=== PATIENT | female | born 1990 | race Caucasian/White ===

== ENCOUNTER 2017-12-28 14:48 | Emergency (ER) | payer OTHER ==
[2017-12-28 15:08] VITALS: BP 125/78
[2017-12-28] MEDS ORDERED: CLINDAMYCIN 150 MG CAPSULE PO STA (17:51)
[2017-12-28] MEDS ORDERED: IBUPROFEN 600 MG TABLET PO STA (17:51)
[2017-12-28] MEDS ORDERED: diphenhydrAMINE 25 MG CAPSULE PO STA (17:51)
--- NOTE | 2017-12-28 18:12 | ED Physician Documentation ---
PD HPI SKIN - Stated complaint Stated Complaint: LT LEG SWELLING - Chief complaint Chief Complaint: Wound - History obtained from History obtained from: Patient, Family - History of Present Illness Timing - onset: Yesterday Timing - details: Abrupt onset Location: LLE Quality / character: Painful, Discolored, Raised Associated symptoms: No: Fever Similar symptoms before: Work up / diagnostics Recently seen: Not recently seen - Additional information Additional information: Patient is a 27 year old female who is presenting to the emergency department for pain, redness and swelling on the medial portion of her left thigh. Patient states that she just noticed it last night. Patient denies any trauma but does have a history of mrsa. 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 - Present Medications Home Medications: Ambulatory Orders Medication Instructions Recorded Confirmed Clindamycin HCl [Clindamycin 300MG 300 mg PO Q6H 7 Days capsule 12/28/17 CAP] - Allergies Allergies/Adverse Reactions: Allergies Allergy/AdvReac Type Severity Reaction Status Date / Time No Known Drug Allergies Allergy Verified 12/28/17 15:08 - Social History Does the pt smoke?: No Smoking Status: Never smoker Does the pt drink ETOH?: No Does the pt have substance abuse?: No - Immunizations Immunizations are current?: Yes - POLST Patient has POLST: No PD ED PE NORMAL - Vitals Vital signs reviewed: Yes - General General: Alert and oriented X 3 - HEENT HEENT: Atraumatic - Neck Neck: Supple, no meningeal sign - Cardiac Cardiac: RRR - Respiratory Respiratory: No respiratory distress - Neuro Neuro: Alert and oriented X 3 PD ED PE EXPANDED - Extremities DELON LE visual: 1 - rash (tender and indurated no fluctuance) Results - Vitals Vitals: Vital Signs - 24 hr 12/28/17 14:59 Temperature 36.9 C Heart Rate 99 Respiratory 18 Rate Blood Pressure 125/78 O2 Saturation 97 Oxygen O2 Source Room air PD MEDICAL DECISION MAKING - ED course Complexity details: reviewed old records, reviewed results, re-evaluated patient , considered differential, d/w patient, d/w family ED course: Patient was seen and examined at bedside. patient's wound was evaluated. there was a central area that looked like it could have been a bite, but with patient's mrsa history the wound was outlined and patient was started on antibiotics. Patient and family were given detailed discharge and follow up instructions and were stable for outpatient follow up. - Sepsis Event Vital Signs: Vital Signs - 24 hr 12/28/17 14:59 Temperature 36.9 C Heart Rate 99 Respiratory 18 Rate Blood Pressure 125/78 O2 Saturation 97 Oxygen O2 Source Room air Departure - Departure Disposition: 01 Home, Self Care Clinical Impression: Cellulitis Condition: Good Instructions: Cellulitis Dc Follow-Up: primary,care provider [Other] - Within 3 Days Prescriptions: Clindamycin HCl [Clindamycin 300MG CAP] 300 mg PO Q6H 7 Days capsule Comments: You have been prescribed clindamycin. you will need to take it 4 times a day for a week. you should take it with yogurt or probiotics. you can take motrin or tylenol for pain. You can also take benadryl and use ice for the swelling. you should follow up with your doctor if your symptoms don't improve in the next 48 hours. you may return to the emergency department at any time for new, worsening or uncontrollable symptoms. Discharge Date/Time: 12/28/17 18:16
== END 2017-12-28 18:16 | disposition home or self-care (01) ==
LOC: ED 14:48
DX: L03.119 Cellulitis of unspecified part of limb (principal); Z86.14 Personal history of Methicillin resistant Staphylococcus aureus infection
CPT/HCPCS: 99283; A9270

== ENCOUNTER 2018-05-13 06:59 | Emergency (ER) | payer OTHER ==
[2018-05-13 07:17] VITALS: BP 125/87
[2018-05-13] MEDS ORDERED: ACETAMINOPHEN 325 MG TABLET PO STA (07:19)
[2018-05-13] MEDS ORDERED: ONDANSETRON ODT 4 MG TABLET TL STA (07:19)
[2018-05-13] MEDS ORDERED: IBUPROFEN 400 MG TABLET PO STA (07:19)
--- NOTE | 2018-05-13 07:22 | ED Physician Documentation ---
History of Present Illness - Stated complaint Stated Complaint: CHIN LAC - Chief complaint Chief Complaint: Laceration - Additonal information Additional information: hx from pt 28 yolanda slipped and hit chin suffering a lac brief LOC after some nausea minor MORRISON and neck pain bite feels normal no numbness or weakness no CP BP AP denies preg no blood thinners tdap UTD Review of Systems Constitutional: denies: Fever Throat: denies: Dental pain / toothache Cardiac: denies: Chest pain / pressure Respiratory: denies: Dyspnea GI: reports: Nausea. denies: Abdominal Pain, Vomiting : denies: Now EGA Musculoskeletal: reports: Neck pain (mild). denies: Back pain Neurologic: reports: Headache, Head injury. 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 Psych: Depression - Past Surgical History Past Surgical History: Yes /CLINICAL TRIAL LEADER: section - Allergies Allergies/Adverse Reactions: Allergies Allergy/AdvReac Type Severity Reaction Status Date / Time No Known Drug Allergies Allergy Verified 05/13/18 07:17 - Social History Does the pt smoke?: No Smoking Status: Never smoker Does the pt drink ETOH?: No Does the pt have substance abuse?: No - Immunizations Immunizations are current?: Yes - POLST Patient has POLST: No PD ED PE NORMAL - Vitals Vital signs reviewed: Yes - General General: Alert and oriented X 3 - HEENT HEENT: PERRL, Ears normal (no hemotympanum, no post auricular ecchymosis) - Neck Neck: No bony TTP - Cardiac Cardiac: RRR - Respiratory Respiratory: No respiratory distress - Abdomen Abdomen: Soft, Non tender - Neuro Neuro: Alert and oriented X 3, flaker tender 2-12 intact, No motor deficit, No sensory deficit, Normal speech Eye Opening: Spontaneous Motor: Obeys Commands Verbal: Oriented GCS Score: 15 Results - Vitals Vitals: Vital Signs - 24 hr 05/13/18 07:13 Temperature 36.8 C Heart Rate 88 Respiratory 18 Rate Blood Pressure 125/87 H O2 Saturation 99 Oxygen O2 Source Room air Procedures - Laceration (location) chin Length in cm: 1.5 Wound type: Linear Neurovascular status: Sensory intact, Motor intact Anesthesia: LET Wound Preparation: Irrigated copiously NS ([place]) Skin layer closure: Dermabond Other: Patient tolerated well, No complications, Neurovascular intact, Tetanus UTD Complexity: Simple PD MEDICAL DECISION MAKING - ED course ED course: spine cleared clinically - A&O, no focal TTP, nl neuro exam did have brief LOC but now ith GCS 15 and nl neuro exam so doubt ICH and defer CT for now - d/w pt Departure - Departure Disposition: 01 Home, Self Care Clinical Impression: Head injury Qualifiers: Encounter type: initial encounter Qualified Code(s): S09.90XA - Unspecified injury of head, initial encounter Chin laceration Qualifiers: Encounter type: initial encounter Qualified Code(s): S01.81XA - Laceration without foreign body of other part of head, initial encounter Condition: Good Instructions: ED Concussion, ED Laceration Facial Skin Glue, ED Scar Tips to Minimize Comments: Since you passed out briefly I suspect you have suffered a concussion But at this time your neurologic exam is normal So I don't think you need to have a CT scan right now. But if you get worse, please come back to the ER for a recheck and we may need to reconsider the CT Otherwise, motrin and tylenol for the pain Ice wrapped in a towel or sock for 20 minutes at a time. Rest and take it easy today Forms: Activity restrictions
== END 2018-05-13 09:05 | disposition home or self-care (01) ==
LOC: ED 06:59
DX: S06.9X1A Unspecified intracranial injury with loss of consciousness of 30 minutes or less, initial encounter (principal); S01.81XA Laceration without foreign body of other part of head, initial encounter; W01.198A Fall on same level from slipping, tripping and stumbling with subsequent striking against other object, initial encounter
CPT/HCPCS: 12011; 99283; A9270; Q0162

== ENCOUNTER 2019-03-06 08:00 | Outpatient (CLI) | payer BC, OTHER | END 2019-03-06 23:59 | disposition home or self-care (01) | LOC: LAB.R 08:00 | PROVIDERS: ATTEND Registered Nurse | DX: R30.0 Dysuria (principal) | CPT/HCPCS: 87086 ==

== ENCOUNTER 2021-09-01 07:26 | Outpatient (CLI) | payer OTHER | END 2021-09-01 07:27 | disposition EMS.NT | LOC: EMS 07:26 | DX: M24.461 Recurrent dislocation, right knee (principal) ==

== ENCOUNTER 2021-09-01 08:08 | Emergency (ER) | payer BC, OTHER ==
[2021-09-01 08:17] VITALS: BP 112/74
--- NOTE | 2021-09-01 09:26 | ED Physician Documentation ---
PD HPI LOWER EXT INJURY - Stated complaint Stated Complaint: R KNEE INJ - Chief complaint Chief Complaint: Trauma Ext - History obtained from History obtained from: Patient - History of Present Illness PD HPI LOW EXT INJURY LOCATION: Right, Knee Type of injury: Twist Where injury occurred: Home Timing - onset: Today Timing - duration: Hours Timing - details: Abrupt onset, Now resolved Improved by: Rest Worsened by: Moving, Palpating Associated symptoms: No: Weakness, Numbness, Tingling Contributing factors: No: Anticoagulated Similar symptoms before: Diagnosis (patellar dislocation) Recently seen: Not recently seen - Additional information Additional information: Previous well 31-year-old female with a prior history of patellar dislocation was asleep tonight in her bed when she went to [facility] and had spontaneous dislocation of the right patella. She had the patella dislocated laterally with her leg bent and she laid in her bed called 911 and the dislocation spontaneously resolved prior to arrival of medics. The patient has persistent pain associated with this. She has had this happen to her a number of times previously most recently about 9 years ago. She indicates that she did go undergo some physical therapy with this which helped and she indicates that she has had a problem with pain or an ache in this knee the entire time. She feels that it will easily dislocate if she is not careful. Review of Systems Constitutional: denies: Fever Throat: denies: Oral lesions / sores, Sore throat Respiratory: denies: Cough GI: denies: Vomiting Musculoskeletal: reports: Joint pain, Pain with weight bearing. 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 : None HEENT: None Psych: Depression Musculoskeletal: None Derm: None - Past Surgical History Past Surgical History: Yes /REFLESHER: section - Present Medications Home Medications: Ambulatory Orders Medication Instructions Recorded Confirmed Fluoxetine HCl [Prozac] 20 mg PO DAILY 09/01/21 09/01/21 Galcanezumab-Gnlm [Emgality 120 mg SQ ONCE 09/01/21 09/01/21 Syringe] Leuprolide Acetate [Lupron Depot] 11.25 mg IM ONCE 09/01/21 09/01/21 Topiramate [Topamax] 25 mg PO QD 09/01/21 09/01/21 Ubrogepant [Ubrelvy] 100 mg PO ONCE PRN 09/01/21 09/01/21 - Allergies Allergies/Adverse Reactions: Allergies Allergy/AdvReac Type Severity Reaction Status Date / Time No Known Drug Allergies Allergy Verified 09/01/21 08:13 - Social History Does the pt smoke?: No Smoking Status: Never smoker Does the pt drink ETOH?: No Does the pt have substance abuse?: No - Immunizations Immunizations are current?: Yes - POLST Patient has POLST: No PD ED PE NORMAL - Vitals Vital signs reviewed: Yes (tachy) - General General: Alert and oriented X 3, No acute distress, Well developed/nourished - HEENT HEENT: Atraumatic, PERRL, EOMI - Respiratory Respiratory: No respiratory distress - Derm Derm: Normal color, Warm and dry, No rash - Extremities Extremities: No deformity, No edema, Other (mild tenderness to the patella itself. Ligaments stable to testing distal n/v intact normal ROM no swelling. ) - Neuro Neuro: Alert and oriented X 3, yacht builder 2-12 intact, No motor deficit, No sensory deficit, Normal speech Eye Opening: Spontaneous Motor: Obeys Commands Verbal: Oriented GCS Score: 15 - Psych Psych: Normal mood, Normal affect Results - Vitals Vitals: Vital Signs - 24 hr 09/01/21 08:14 Temperature 36.7 C Heart Rate 101 H Respiratory 16 Rate Blood Pressure 112/74 O2 Saturation 94 Oxygen O2 Source Room air PD MEDICAL DECISION MAKING - ED course Complexity details: reviewed results, re-evaluated patient, considered differential, d/w patient ED course: 31-year-old female with a spontaneous patellar dislocation has had a spontaneously reduce she has normal range of motion we will place her into a knee immobilizer and I will have her follow-up with orthopedics. She has had some type of a problem with this despite using physical therapy for the past 9 years. She may need an increase in physical therapy or a procedure. I have referred her to orthopedics for evaluation. Departure - Departure Disposition: 01 Home, Self Care Clinical Impression: Closed dislocation of right patella Qualifiers: Encounter type: initial encounter Qualified Code(s): S83.004A - Unspecified dislocation of right patella, initial encounter Condition: Stable Instructions: ED Dislocation Patella Follow-Up: Katus,Tari, READING SPECIALIST [Primary Care Provider] - Huber Gonzalez MD [Provider Admit Priv/Credential] - Comments: Lis, today it looks like your kneecap has reset itself and as discussed the important part with treatment of this overall is to improve the strength of your quadriceps muscles to keep this ligament tightened. Today we have provided you with a knee immobilizer which is for your comfort. If you do not find that this helps you do not need to wear it. I have given you a referral to orthopedics with the thought that you may need more physical therapy or a procedure.
--- NOTE | 2021-09-01 09:34 | XRAY Report ---
PROCEDURE: Knee 4 View RT INDICATIONS: Trauma TECHNIQUE: 4 views of the right knee(s) were acquired. COMPARISON: None. FINDINGS: Bones: No fractures or dislocations. No suspicious bony lesions. Soft tissues: No joint effusion. No suspicious soft tissue calcifications. IMPRESSION: No visualized acute fracture or dislocation. However, occult injury cannot be excluded. Recommend short interval imaging follow-up in 7-10 days as clinically indicated for additional evalua tion. Reviewed by: Cathy Neff MD on 09/01/2021 9:32 AM PDT Approved by: Cathy Neff MD on 09/01/2021 9:32 AM PDT Station ID: [id number]
== END 2021-09-01 10:00 | disposition home or self-care (01) ==
LOC: ED 08:08
DX: S83.004A Unspecified dislocation of right patella, initial encounter (principal); X58.XXXA Exposure to other specified factors, initial encounter; Y93.89 Activity, other specified; Y92.003 Bedroom of unspecified non-institutional (private) residence as the place of occurrence of the external cause
CPT/HCPCS: 99282; 99283

== ENCOUNTER 2022-06-29 08:24 | Inpatient (IN) | payer OTHER ==
--- NOTE | 2022-06-29 08:43 | ED Physician Documentation ---
PD HPI URI - Stated complaint Stated Complaint: VOMITING/FEVER - Chief complaint Chief Complaint: Fever - History obtained from History obtained from: Patient, Family (spouse says the pateint was feeling well post knee surgery 5 days ago. Light activity and was standing. He states he is feeling well without fever/URI/diarhea. Patient abruptly sick several hours ago.) - History of Present Illness Timing - onset: How many hours ago (4) Timing details: Abrupt onset, Still present Associated symptoms: Fever, Sweats, NVD (had 2-3 loose stools without noted blood/melena. Lane feverish but did not take temp at home.). No: Nasal congestion, Rhinorrhea, Sore throat, Dry cough, Chest pain, Dyspnea Contributing factors: Other (knee surgery [address] Oreilly in [facility]. Was doing okay post op and knee without redness, swelling, purulence.). No: Sick contact, Immunocompromised, Unimmunized Similar symptoms before: Has not had sx before Recently seen: Surgery (ortho surgery knee 5 days ago.) Review of Systems Constitutional: reports: Fever, Chills, Myalgias Nose: denies: Rhinorrhea / runny nose, Congestion Throat: denies: Sore throat Respiratory: denies: Cough GI: reports: Nausea, Vomiting, Diarrhea. denies: Abdominal Pain : denies: Dysuria Skin: denies: Rash, Lesions Neurologic: reports: Generalized weakness (just overnight.). 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 - Present Medications Home Medications: Ambulatory Orders Medication Instructions Recorded Confirmed Fluoxetine HCl [Prozac] 20 mg PO DAILY 09/01/21 06/29/22 Galcanezumab-Gnlm [Emgality 120 mg SQ .Q28D 09/01/21 06/29/22 Syringe] Leuprolide Acetate [Lupron Depot] 11.25 mg IM .[id number] 09/01/21 06/29/22 Ubrogepant [Ubrelvy] 100 mg PO ONCE PRN 09/01/21 06/29/22 Cyclobenzaprine [Flexeril] 5 mg PO TID PRN 06/29/22 06/29/22 Norethindrone Acetate 5 mg PO DAILY 06/29/22 06/29/22 estradioL [Estrace] 1 mg PO DAILY 06/29/22 06/29/22 hydrOXYzine pamoate [Hydroxyzine 25 mg PO Q6H PRN 06/29/22 06/29/22 Pamoate] oxyCODONE [Roxicodone] 5 mg PO Q4HR PRN 06/29/22 06/29/22 - Allergies Allergies/Adverse Reactions: Allergies Allergy/AdvReac Type Severity Reaction Status Date / Time No Known Drug Allergies Allergy Verified 06/29/22 08:31 - Social History Does the pt smoke?: No Smoking Status: Never smoker Does the pt drink ETOH?: No Does the pt have substance abuse?: No - Immunizations Immunizations are current?: Yes - POLST Patient has POLST: No PD ED PE NORMAL - Vitals Vital signs reviewed: Yes (high fever 104. tachycardia.) - General General: Alert and oriented X 3, Well developed/nourished - HEENT HEENT: Ears normal, Pharynx benign, Other (moderately pale appearance. ). No: Moist mucous membranes - Cardiac Cardiac: No: RRR (tachycardic, but regular, with some variation of heart rate so appearing sinus tachy and not SVT. ) - Respiratory Respiratory: No respiratory distress, Clear bilaterally - Abdomen Abdomen: Soft, Non tender, Non distended. No: Normal bowel sounds (decreased) - Female Female : Deferred - Rectal Rectal: Deferred - Back Back: No CVA TTP - Derm Derm: Warm and dry. No: Normal color (pale) - Extremities Extremities: Other (right knee with tape and glue on scope incisions. No drainage noted. There is some bruising around each incision. No redness nor overt swelling. No notable effusion. Mild warmth of joint but not hot. No inguinal adenopathy. ) - Neuro Neuro: Alert and oriented X 3, No motor deficit, Normal speech Results - Vitals Vitals: Vital Signs - 24 hr 06/29/22 06/29/22 06/29/22 08:31 09:06 09:30 Temperature 39.5 C H Heart Rate 144 H 136 H 128 H Respiratory 22 21 16 Rate Blood Pressure 137/87 H 128/83 H 105/68 O2 Saturation 98 98 94 06/29/22 06/29/22 06/29/22 10:00 10:30 11:00 Temperature 37.4 C Heart Rate 129 H 124 H 133 H Respiratory 15 15 21 Rate Blood Pressure 124/49 L 101/64 109/78 O2 Saturation 96 94 93 06/29/22 13:30 Temperature Heart Rate 137 H Respiratory 26 H Rate Blood Pressure 126/85 H O2 Saturation 97 Oxygen O2 Source Room air - Labs Labs: Laboratory Tests 06/29/22 06/29/22 06/29/22 08:52 08:52 08:52 WBC 6.3 RBC 4.87 Hgb 14.2 Hct 43.1 MCV 88.5 MCH 29.2 MCHC 32.9 RDW 12.9 Plt Count 321 MPV 9.2 Neut # (Auto) 5.9 Lymph # (Auto) 0.3 L Davie # (Auto) 0.1 Eos # (Auto) 0.0 Baso # (Auto) 0.0 Absolute Nucleated RBC 0.00 Nucleated RBC % 0.0 Sodium 136 Potassium 3.2 L Chloride 102 Carbon Dioxide 21 Anion Gap 13.0 BUN 9 Creatinine 0.8 Estimated GFR (MDRD) 84 L Glucose 128 H Lactic Acid Calcium 8.7 Total Bilirubin 1.9 H AST 35 ALT 29 Alkaline Phosphatase 58 C-Reactive Protein 3.0 H Total Protein 7.3 Albumin 3.8 Globulin 3.5 Albumin/Globulin Ratio 1.1 Lipase 28 Procalcitonin 10.15 H* Nasal Adenovirus (PCR) Nasal B. parapertussis DNA (PCR) Nasal Coronavir 229E PCR Nasal Coronavir HKU1 PCR Nasal Coronavir NL63 PCR Nasal Coronavir OC43 PCR Nasal Enterovir/Rhinovir PCR Nasal Influenza B PCR Nasal Influenza A PCR Nasal Parainfluen 1 PCR Nasal Parainfluen 2 PCR Nasal Parainfluen 3 PCR Nasal Parainfluen 4 PCR Nasal RSV (PCR) Nasal B.pertussis DNA PCR Nasal C.pneumoniae (PCR) Ronnie Human Metapneumo PCR Nasal M.pneumoniae (PCR) Nasal SARS-CoV-2 (PCR) 06/29/22 06/29/22 08:52 09:05 WBC RBC Hgb Hct MCV MCH MCHC RDW Plt Count MPV Neut # (Auto) Lymph # (Auto) Davie # (Auto) Eos # (Auto) Baso # (Auto) Absolute Nucleated RBC Nucleated RBC % Sodium Potassium Chloride Carbon Dioxide Anion Gap BUN Creatinine Estimated GFR (MDRD) Glucose Lactic Acid 4.0 H* Calcium Total Bilirubin AST ALT Alkaline Phosphatase C-Reactive Protein Total Protein Albumin Globulin Albumin/Globulin Ratio Lipase Procalcitonin Nasal Adenovirus (PCR) NOT DETECTED Nasal B. parapertussis DNA (PCR) NOT DETECTED Nasal Coronavir 229E PCR NOT DETECTED Nasal Coronavir HKU1 PCR NOT DETECTED Nasal Coronavir NL63 PCR NOT DETECTED Nasal Coronavir OC43 PCR NOT DETECTED Nasal Enterovir/Rhinovir PCR NOT DETECTED Nasal Influenza B PCR NOT DETECTED Nasal Influenza A PCR NOT DETECTED Nasal Parainfluen 1 PCR NOT DETECTED Nasal Parainfluen 2 PCR NOT DETECTED Nasal Parainfluen 3 PCR NOT DETECTED Nasal Parainfluen 4 PCR NOT DETECTED Nasal RSV (PCR) NOT DETECTED Nasal B.pertussis DNA PCR NOT DETECTED Nasal C.pneumoniae (PCR) NOT DETECTED Ronnie Human Metapneumo PCR NOT DETECTED Nasal M.pneumoniae (PCR) NOT DETECTED Nasal SARS-CoV-2 (PCR) NOT DETECTED PD Medical Decision Making - ED course Complexity details: reviewed results (I ordered and reviewed appropriate testing to evaluate cause of illness and effect of it (sepsis markers, etc).), considered differential, d/w patient, d/w reporting consultant (I talked with Dr. Oreilly, Ortho at [facility] who had done the recent surgery on knee. He felt if the knee was not red/hot/draining, then would not be the source of fever/infection and did not feel patient needed transfer. Clinically I would agree that the knee is lower suspicion as the source. ), other (dicussed case directly with hospitalist, Dr. Levin) Reviewed Lab Results: Patient with elevated Lactic acid level of 4 and procalictonin of 10, both of which are more suggestive of bacterial cause of her infection. Normal white count does not exclude that. She has high fever and is tachycardic, and elevated lactic acid, are supportive of Dx of sepsis. Drug Therapy Requiring Monitoring for Toxicity: given IV fluid boluses to improve general perfusion and help with tachycardia and lactate. Given IV antibiotics. ED course: The patient has sepsis findings and appears ill. Her knee is mildly warm but not hot/red/nor swollen, and without drainage. Clinically less likely for this to be source of infection, though still needs to be on list of concern given the timing of illness 5 days post surgery. As such, I will cover with Paige and Deysi for potential wound infection. The PCR test is negative for listed viruses, so cannot assign her symptoms clearly as viral. Her symptoms do sound flu-like clinically. Given IV fluids and she appears with better color. However her heart rate remains tachycardic, with ECG showing sinus tach (as opposed to SVT or afib). Given more IV fluids. I feel the patient is ill/septic and needs hospitalization until further treatment improves her and can evaluate source of illness (blood culture results, progression of symptoms, etc). Departure - Departure Disposition: ED Place in Observation Clinical Impression: Nausea, vomiting and diarrhea, Hyperpyrexia, Status post arthroscopic knee surgery, Elevated lactic acid level, Sepsis Condition: Stable Discharge Date/Time: 06/29/22 14:20
[2022-06-29] MEDS ORDERED: ONDANSETRON 4 MG/2 ML VIAL IVP STA ×2 (08:52→13:36)
[2022-06-29] MEDS ORDERED: KETOROLAC 15 MG/ML VIAL IVP STA (08:52)
[2022-06-29] MEDS ORDERED: ACETAMINOPHEN 1,000 MG/100 ML 1,000 MG/100 ML BAG IV ONE (08:53)
[2022-06-29] MEDS ORDERED: SODIUM CHLORIDE 0.9% 1,000 ML IV STA ×2 (08:54→10:10)
[2022-06-29 09:02] LABS: BASOPHILS % (AUTO) 0.2 %; EOSINOPHILS % (AUTO) 0.3 %; HCT - HEMATOCRIT 43.1 % (37.0-47.0); HGB - HEMOGLOBIN 14.2 g/dL (12.0-16.0); LYMPHOCYTES # (AUTO) 0.3 10^3/uL (1.5-3.5); LYMPHOCYTES % (AUTO) 4.4 %; MEAN CORPUSCULAR HEMOGLOBIN 29.2 pg (27.0-31.0); MEAN CORPUSCULAR HGB CONC 32.9 g/dL (32.0-36.0); MEAN CORPUSCULAR VOLUME 88.5 fL (81.0-99.0); MEAN PLATELET VOLUME 9.2 fL (7.9-10.8); MONOCYTES # (AUTO) 0.1 10^3/uL (0.0-1.0); MONOCYTES % (AUTO) 0.8 %; NEUTROPHILS # (AUTO) 5.9 10^3/uL (1.5-6.6); NEUTROPHILS % (AUTO) 93.5 %; PLT - PLATELET COUNT 321 10^3/uL (130-450); RED BLOOD COUNT 4.87 10^6/uL (4.20-5.40); RED CELL DISTRIBUTION WIDTH 12.9 % (12.0-15.0); WHITE BLOOD COUNT 6.3 x10^3/uL (4.8-10.8)
--- OUTSIDE RECORDS SUMMARY | 2022-06-29 09:18 | EXTERNAL MEDICAL SUMMARY RPT | Continuity of Care Document ---
:1990 Author Organization [facility] [address] [place] [address] Phone Care Team Providers Name Role Phone Unavailable Unavailable Unavailable Мария Nova Unavailable Unavailable Allergies and Intolerances date description facility type (no date) No Known Drug Allergies [facility] (unkn own) Encounters No information. Functional Status No information. Immunizations No information. Medications date description facility 2022-05-05 00:00 Cetirizine [facility] 2022-06-23 00:00 Oxycodone [facility] 2022-06-23 00:00 Ibuprofen [facility] 2022-05-05 00:00 Galcanezumab-Gnlm [facility] 2022-06-23 00:00 Aspirin [facility] 2022-06-23 00:00 Acetaminophen [facility] 2022-06-23 00:00 Hydroxyzine Pamoate [facility] Problems date description facility 2022-04-16 11:18 Loose body in knee, [facility] 2022-05-05 09:53 Recurrent dislocation of patella, [facility] 2022-05-05 09:53 Effusion, [facility] 2022-05-05 10:30 Recurrent dislocation of patella, [facility] 2022-05-05 10:30 Effusion, [facility] 2022-05-07 13:02 Recurrent dislocation of patella, [facility] 2022-05-07 13:02 Effusion, [facility] 2022-05-11 12:57 Recurrent dislocation of patella, [facility] 2022-05-11 12:57 Effusion, [facility] 2022-06-22 13:00 Encounter for screening for other viral [facility] diseases 2022-06-23 07:48 Recurrent dislocation of patella, [facility] 2022-06-23 07:48 Effusion, [facility] 2022-06-23 10:33 Recurrent dislocation of patella, [facility] 2022-06-23 10:33 Effusion, [facility] 2022-06-23 12:02 Recurrent dislocation of patella, right knee [facility] 2022-06-23 12:02 Effusion, right knee [facility] 2022-06-23 12:45 Recurrent dislocation of patella, right knee [facility] 2022-06-23 12:45 Effusion, right [facility] Procedures date description facility 2022-05-05 00:00 Patellar Tendon Repair (Right) [facility] 2022-06-23 00:00 XR fluoro, less than 60 minutes [facility] 2022-06-23 00:00 ORIF Patella Fracture (Right) [facility] ospital Results/Labs test date author facility value unit interpret ation Result panel 1 (unknown) (no date) (unknown) [facility] (no value) ([facility] unknown) Result panel 2 (unknown) (no date) (unknown) [facility] (no value) ([facility] unknown) Result panel 3 (unknown) (no date) (unknown) [facility] (no value) ([facility] unknown) Result panel 4 (unknown) (no date) (unknown) [facility] (no value) ([facility] unknown) Result panel 5 (unknown) (no date) (unknown) (unknown) (no value) (units (un known) unknown) (unknown) (no date) (unknown) (unknown) 05/05/22 1032 (units (unknown) unknown) (unknown) (no date) (unknown) (unknown) Age/Sex: 32 / (units (unknown) F unknown) (unknown) (no date) (unknown) (unknown) COVID-19 (units (unkn own) status: unknown) Negative (unknown) (no date) (unknown) (unknown) COVID-19 (units (unkn own) unknown) (unknown) (no date) (unknown) (unknown) Changes to (units (un known) H+P: No unknown) (unknown) (no date) (unknown) (unknown) : (units (unkn own) 1990 unknown) Acct:[id number] (unknown) (no date) (unknown) (unknown) Date of (units (unkn own) Service: unknown) 05/05/22 (unknown) (no date) (unknown) (unknown) History + (units (unk nown) Physical unknown) reviewed/Exam performed by Physician: Yes (unknown) (no date) (unknown) (unknown) Interval Note (units (unknown) unknown) (unknown) (no date) (unknown) (unknown) [facility] (units (unkn own) [facility] [address] unknown) [address] [place] [id number] (unknown) (no date) (unknown) (unknown) [id number] (units (un known) unknown) (unknown) (no date) (unknown) (unknown) Patient: (units (unkn own) PieterRac unknown) hel D MR#: (unknown) (no date) (unknown) (unknown) Pre-operative (units (unknown) Note unknown) (unknown) (no date) (unknown) (unknown) Provider: (sue (unk nowgilles) Alex Oreilly unknown) Clau WESLEY (unknown) (no date) (unknown) (unknown) Result (units (unkn own) date/Date unknown) tested (Pos, Neg/Pending): 05/04/22 (unknown) (no date) (unknown) (unknown) Signed (units (unkn own) By:<Electronic unknown) ally signed by Alex Oreilly MD> Result panel 6 (unknown) (no date) (unknown) (unknown) Negative (units (unkn own) unknown) (unknown) (no date) (unknown) (unknown) Negative (units (unkn own) unknown) Result panel 7 (unknown) (no date) (unknown) (unknown) (no value) (units (un known) unknown) (unknown) (no date) (unknown) (unknown) 06/23/22 0831 (units (unknown) unknown) (unknown) (no date) (unknown) (unknown) Age/Sex: 32 / (units (unknown) F unknown) (unknown) (no date) (unknown) (unknown) COVID-19 (units (unkn own) status: unknown) Negative (unknown) (no date) (unknown) (unknown) COVID-19 (units (unkn own) unknown) (unknown) (no date) (unknown) (unknown) Changes to (units (un known) H+P: No unknown) (unknown) (no date) (unknown) (unknown) : (units (unkn own) 1990 unknown) Acct:[id number] (unknown) (no date) (unknown) (unknown) Date of (units (unkn own) Service: unknown) 06/23/22 (unknown) (no date) (unknown) (unknown) History + (units (unk nown) Physical unknown) reviewed/Exam performed by Physician: Yes (unknown) (no date) (unknown) (unknown) Interval Note (units (unknown) unknown) (unknown) (no date) (unknown) (unknown) [facility] (units (unkn own) [facility] [address] unknown) [address] [place] [id number] (unknown) (no date) (unknown) (unknown) [id number] (units (un known) unknown) (unknown) (no date) (unknown) (unknown) Patient: (units (unkn own) Jason Stapleton unknown) gina Perry MR#: (unknown) (no date) (unknown) (unknown) Pre-operative (units (unknown) Note unknown) (unknown) (no date) (unknown) (unknown) Provider: (units (unk nown) Alex Oreilly unknown) Clau WESLEY (unknown) (no date) (unknown) (unknown) Result (units (unkn own) date/Date unknown) tested (Pos, Neg/Pending): 06/22/22 (unknown) (no date) (unknown) (unknown) Signed (units (unkn own) By:<Electronic unknown) ally signed by Alex Oreilly MD> Result panel 8 (unknown) (no (unknown) (unknown) (no value) (units (unk nown) date) unknown) (unknown) (no (unknown) (unknown) 06/23/22 (units (unkno wn) date) unknown) (unknown) (no (unknown) (unknown) [address] [place] [address] (units (unknown) date) unknown) (unknown) (no (unknown) (unknown) : [id number] (units (u nknown) date) unknown) (unknown) (no (unknown) (unknown) Accession (units (unkn own) date) Number: unknown) [id number] (unknown) (no (unknown) (unknown) Age/Sex: 32 / F (units (unknown) date) Date of Service: unknown) (unknown) (no (unknown) (unknown) Elliott, MIHIR (units ( unknown) date) [id number] unknown) (unknown) (no (unknown) (unknown) Approved by: (units (u nknown) date) Negro Conway M.D. unknown) on 06/23/2022 at 13:17 (unknown) (no (unknown) (unknown) COMPARISON: [facility] (units (unknown) date) Outside Film, CR, unknown) XR KNEE 3 VIEWS RIGHT, 09/01/2021, 8:17. (unknown) (no (unknown) (unknown) : 1990 (units (unknown) date) Acct:[id number] unknown) (unknown) (no (unknown) (unknown) Dictated by: (units (u nknown) date) Negro Conway M.D. unknown) on 06/23/2022 at 13:15 (unknown) (no (unknown) (unknown) FINDINGS: (units (unkn own) date) unknown) (unknown) (no (unknown) (unknown) IMPRESSION: (units (un known) date) unknown) (unknown) (no (unknown) (unknown) INDICATIONS: (units (u nknown) date) RIGHT KNEE REPAIR unknown) (unknown) (no (unknown) (unknown) Intraoperative (units (unknown) date) guidance unknown) provided. (unknown) (no (unknown) (unknown) [facility] (units (unknown) date) unknown) (unknown) (no (unknown) (unknown) Loc: OR (units (unkno wn) date) unknown) (unknown) (no (unknown) (unknown) Marker overlying (units (unknown) date) the femoral unknown) condyle and in the lateral projection. (unknown) (no (unknown) (unknown) No large joint (units (unknown) date) effusion. unknown) (unknown) (no (unknown) (unknown) Ordering (units (unkno wn) date) Provider: unknown) Alex Oreilly MD (unknown) (no (unknown) (unknown) PROCEDURE: XR (units ( unknown) date) KNEE RT 1TO2V unknown) (unknown) (no (unknown) (unknown) Patient: (units (unkno wn) date) Lis Stapleton unknown) D MR# (unknown) (no (unknown) (unknown) Procedure: XR (units ( unknown) date) knee RT 1to2V unknown) (unknown) (no (unknown) (unknown) Signed (units (unkno wn) date) unknown) (unknown) (no (unknown) (unknown) TECHNIQUE: 2 (units (u nknown) date) intraoperative unknown) views of the knee were acquired. (unknown) (no (unknown) (unknown) XRay Report (units (un known) date) unknown) Result panel 9 (unknown) (no (unknown) (unknown) (no value) (units (unk nown) date) unknown) (unknown) (no (unknown) (unknown) 06/23/22 1049 (units ( unknown) date) unknown) (unknown) (no (unknown) (unknown) 3 quadrants (units (unk nown) date) lateral unknown) translation of the patella on exam under anesthesia prior to (unknown) (no (unknown) (unknown) A passing suture (units (unknown) date) was placed. The unknown) graft was then pulled into the femoral tunnel (unknown) (no (unknown) (unknown) Age/Sex: 32 / F (units (unknown) date) unknown) (unknown) (no (unknown) (unknown) An approximately (units (unknown) date) 2 cm incision was unknown) created overlying the pes anserinus. The (unknown) (no (unknown) (unknown) Anesthesia Type: (units (unknown) date) General, unknown) Peripheral nerve block and Local (unknown) (no (unknown) (unknown) Applied: (units (unkno wn) date) implant(s) unknown) (unknown) (no (unknown) (unknown) Shake Out Worker: Deniz (units (unknown) date) W Rocky unknown) (unknown) (no (unknown) (unknown) Blood products (units (unknown) date) transfused: none unknown) (unknown) (no (unknown) (unknown) Click Yes if (units (u nknown) date) Unassisted: No unknown) (unknown) (no (unknown) (unknown) Closure Type: (units ( unknown) date) primary unknown) (unknown) (no (unknown) (unknown) Complications: (units (unknown) date) none unknown) (unknown) (no (unknown) (unknown) Condition: (units (unk nown) date) stable unknown) (unknown) (no (unknown) (unknown) : 1990 (units (unknown) date) Acct:[id number] unknown) (unknown) (no (unknown) (unknown) Date of Service: (units (unknown) date) 06/23/22 unknown) (unknown) (no (unknown) (unknown) Date of (units (unkno wn) date) procedure: unknown) 06/23/22 (unknown) (no (unknown) (unknown) Disposition: (units (u nknown) date) PACU unknown) (unknown) (no (unknown) (unknown) Estimated Blood (units (unknown) date) Loss (mL): 10 unknown) (unknown) (no (unknown) (unknown) Findings: (units (unkn own) date) unknown) (unknown) (no (unknown) (unknown) Implants used in (units (unknown) date) this procedure unknown) were manufactured by the [employer] and (unknown) (no (unknown) (unknown) Indications: (units (u nknown) date) unknown) (unknown) (no (unknown) (unknown) [facility] (units (unknown) date) [address] [place] [address] unknown) [place] [address] (unknown) (no (unknown) (unknown) [id number] (units (unk nown) date) unknown) (unknown) (no (unknown) (unknown) Mr. Hidalgo. Using (units (unknown) date) the C-arm to unknown) assist with positioning, a 2 cm incision was (unknown) (no (unknown) (unknown) Operative (units (unkn own) date) Date/Time/Diagnos unknown) es (unknown) (no (unknown) (unknown) Operative Note (units (unknown) date) unknown) (unknown) (no (unknown) (unknown) Operative Notes (units (unknown) date) unknown) (unknown) (no (unknown) (unknown) Patient: (units (unkno wn) date) Lis Stapleton unknown) D MR#: (unknown) (no (unknown) (unknown) Plan for (units (unkno wn) date) aftercare: unknown) (unknown) (no (unknown) (unknown) Post-op (units (unkno wn) date) diagnosis: same unknown) (unknown) (no (unknown) (unknown) Post-operative (units (unknown) date) unknown) (unknown) (no (unknown) (unknown) Pre-op (units (unkno wn) date) diagnosis: Right unknown) knee patellar instability (unknown) (no (unknown) (unknown) Procedure + (units (un known) date) Clinicians unknown) (unknown) (no (unknown) (unknown) Procedure in (units (u nknown) date) detail: unknown) (unknown) (no (unknown) (unknown) Procedure: (units (unk nown) date) unknown) (unknown) (no (unknown) (unknown) Prosthetic (units (unk nown) date) devices, grafts, unknown) tissues, transplants, or devices: (unknown) (no (unknown) (unknown) Provider: (units (unkn own) date) Alex Oreilly unknown) (unknown) (no (unknown) (unknown) Right medial (units (u nknown) date) patellofemoral unknown) ligament reconstruction with gracilis autograft (unknown) (no (unknown) (unknown) Same procedure (units (unknown) date) as scheduled: Yes unknown) (unknown) (no (unknown) (unknown) Signed (units (unkno wn) date) By:<Electronicall unknown) y signed by Alex Oreilly MD> (unknown) (no (unknown) (unknown) Specimen(s): (units (u nknown) date) none sent unknown) (unknown) (no (unknown) (unknown) Surgeon: Alex (units (unknown) date) Clau Oreilly unknown) (unknown) (no (unknown) (unknown) The Beath pins (units (unknown) date) used as guide unknown) pins for these holes were used to pull the suture (unknown) (no (unknown) (unknown) The assistance (units (unknown) date) of a skilled unknown) certified surgical tech/first assistant was required during the surgery (unknown) (no (unknown) (unknown) The patient is a (units (unknown) date) 32-year-old woman unknown) who has had repetitive episodes of right (unknown) (no (unknown) (unknown) The patient was (units (unknown) date) seen in the unknown) preoperative area where she identified the right (unknown) (no (unknown) (unknown) The patient will (units (unknown) date) be discharged unknown) today. She will remain on crutches until her (unknown) (no (unknown) (unknown) The right leg (units ( unknown) date) was placed in an unknown) arthroscopic leg hopkins. The left leg was placed (unknown) (no (unknown) (unknown) These tunnels (units ( unknown) date) were 4 mm in unknown) diameter and measured approximately 15 mm in depth. (unknown) (no (unknown) (unknown) Time of (units (unkno wn) date) procedure: 10:36 unknown) (unknown) (no (unknown) (unknown) Tourniquet time (units (unknown) date) (min): 43 unknown) (unknown) (no (unknown) (unknown) a tunnel in the (units (unknown) date) patella. A 6 mm x unknown) 20 mm interference screw was placed in the (unknown) (no (unknown) (unknown) across with 1 (units ( unknown) date) tail in each unknown) socket. The sutures were then tied on the lateral (unknown) (no (unknown) (unknown) additional pain (units (unknown) date) control. We will unknown) also instruct her to use low-dose aspirin (unknown) (no (unknown) (unknown) and (units (unkno wn) date) alternatives. unknown) Risks discussed included but were not limited to: Failure to (unknown) (no (unknown) (unknown) approximately (units ( unknown) date) 10-14 days. unknown) Prescriptions have been sent to the pharmacy for (unknown) (no (unknown) (unknown) block has worn (units (unknown) date) off. At that unknown) point she will be on crutches for comfort. She (unknown) (no (unknown) (unknown) closed with (units (un known) date) subcutaneous 3-0 unknown) Vicryl. The subcuticular layer was closed with a (unknown) (no (unknown) (unknown) complete the (units (u nknown) date) patellar unknown) fixation. I then reexamined the knee for patellar (unknown) (no (unknown) (unknown) created over the (units (unknown) date) femoral origin of unknown) the medial patellofemoral ligament. A guide (unknown) (no (unknown) (unknown) deep venous (units (un known) date) thrombosis, unknown) pulmonary embolism, stroke, myocardial infarction, (unknown) (no (unknown) (unknown) exsanguinated (units ( unknown) date) with an Esmarch unknown) bandage and the tourniquet inflated to 250 mmHg. (unknown) (no (unknown) (unknown) femoral socket. (units (unknown) date) To docking sites unknown) were drilled in the patella at the level of (unknown) (no (unknown) (unknown) foot of the (units (un known) date) table was unknown) dropped. The right leg was prepared with ChloraPrep in (unknown) (no (unknown) (unknown) for retraction (units (unknown) date) to protect vital unknown) structures, positioning, exposure and for graft (unknown) (no (unknown) (unknown) grafting, 1 (units (un known) date) quadrant after unknown) placement of the graft. (unknown) (no (unknown) (unknown) half the (units (unkno wn) date) patellar height unknown) and long term between the equator and the proximal pole. (unknown) (no (unknown) (unknown) improve, (units (unkno wn) date) stiffness, unknown) increased risk of osteoarthritis, infection, nerve damage, (unknown) (no (unknown) (unknown) in a stirrup and (units (unknown) date) elevated to move unknown) it out of the path of the fluoroscopy. The (unknown) (no (unknown) (unknown) included a 6 x (units (unknown) date) 20 mm FastThread unknown) BioComposite interference screw. (unknown) (no (unknown) (unknown) instability and (units (unknown) date) there was 1 unknown) quadrant lateral translation which was felt to be (unknown) (no (unknown) (unknown) knee as the (units (un known) date) operative site unknown) and this was marked with my initials. She was taken (unknown) (no (unknown) (unknown) less than 6 mm (units (unknown) date) when doubled over unknown) and a 6 mm tunnel was drilled over the guide (unknown) (no (unknown) (unknown) oxycodone and (units ( unknown) date) Vistaril. She is unknown) been instructed to use Tylenol and ibuprofen for (unknown) (no (unknown) (unknown) patella and a (units ( unknown) date) tunnel created in unknown) the retinaculum to the femoral origin pin site. (unknown) (no (unknown) (unknown) patellar (units (unkno wn) date) subluxation. unknown) These are painful and debilitating and she has requested (unknown) (no (unknown) (unknown) permanent (units (unkn own) date) paralysis and unknown) . (unknown) (no (unknown) (unknown) pin was placed (units (unknown) date) in Schottle's unknown) point with confirmation both by palpation that it (unknown) (no (unknown) (unknown) pin. A 4 cm (units (un known) date) incision was then unknown) created over the superior patella. An incision (unknown) (no (unknown) (unknown) preoperative (units (u nknown) date) antibiotics. Her unknown) knee was examined under anesthesia with the (unknown) (no (unknown) (unknown) preparation. (units (u nknown) date) Without the unknown) services of Mr. Hidalgo the procedure would not have (unknown) (no (unknown) (unknown) previously (units (unk nown) date) placed passing unknown) suture. The graft was adjusted to maintain graft in (unknown) (no (unknown) (unknown) procedure well. (units (unknown) date) The tourniquet unknown) was deflated during closure for total tourniquet (unknown) (no (unknown) (unknown) proceeded as (units (u nknown) date) expediently and unknown) safely. (unknown) (no (unknown) (unknown) quadriceps and (units (unknown) date) hamstrings and unknown) gait. She will follow up in my office in (unknown) (no (unknown) (unknown) result given (units (u nknown) date) above. A unknown) tourniquet was placed about the proximal right thigh. (unknown) (no (unknown) (unknown) running 4-0 (units (un known) date) Monocryl. Skin unknown) was closed with Steri-Strips. Subcutaneous tissues (unknown) (no (unknown) (unknown) sartorius fascia (units (unknown) date) was elevated and unknown) the gracilis harvested with a closed ended (unknown) (no (unknown) (unknown) satisfactory (units (u nknown) date) stabilization unknown) without excessive constraint. All wounds were then (unknown) (no (unknown) (unknown) side of the (units (un known) date) patella with the unknown) patella centered in the trochlear groove to (unknown) (no (unknown) (unknown) tendon (units (unkno wn) date) harvester. This unknown) was taken to the back table and prepared into a graft by (unknown) (no (unknown) (unknown) the femoral (units (unk nown) date) tunnel and allow unknown) approximately 5 mm of each tail end to be placed in (unknown) (no (unknown) (unknown) the operating (units ( unknown) date) room table in a unknown) supine position where she underwent the induction (unknown) (no (unknown) (unknown) the usual (units (unkn own) date) fashion and unknown) draped through sterile drapes. The leg was elevated and (unknown) (no (unknown) (unknown) time of 43 (units (unk nown) date) minutes. unknown) (unknown) (no (unknown) (unknown) to the operating (units (unknown) date) room after unknown) undergoing a femoral nerve block. She was placed on (unknown) (no (unknown) (unknown) transported to (units (unknown) date) the recovery room unknown) in good condition having tolerated the (unknown) (no (unknown) (unknown) twice a day for (units (unknown) date) DVT prophylaxis. unknown) (unknown) (no (unknown) (unknown) using the Beath (units (unknown) date) pin. The 2 tails unknown) were brought up to the patella with the (unknown) (no (unknown) (unknown) was in the (units (unk nown) date) sulcus and unknown) fluoroscopic verification. The graft had been measured at (unknown) (no (unknown) (unknown) was made in the (units (unknown) date) medial patellar unknown) retinaculum next to the upper half of the (unknown) (no (unknown) (unknown) we proceed with a (units (unknown) date) ligament unknown) reconstruction after discussion of the risks benefits (unknown) (no (unknown) (unknown) were dressed (units (u nknown) date) with sterile unknown) 4x4s, cast padding and an Robert wrap and she was (unknown) (no (unknown) (unknown) were injected (units ( unknown) date) with 0.25% unknown) Marcaine for postoperative pain control. The wounds (unknown) (no (unknown) (unknown) will be placed (units (unknown) date) on a physical unknown) therapy pill and to work on strengthening of her (unknown) (no (unknown) (unknown) with general (units (u nknown) date) anesthetic. A unknown) multimedia instructional designer-out was performed. She received Social History date description facility 2022-05-05 00:00 Never smoked tobacco (finding) [facility] 2022-06-23 00:00 Never smoked tobacco (finding) [facility] Vital Signs date measurement value units 2022-05-05 00:00 BMI 42.5 kg/m2 2022-05-05 00:00 BP_diastolic 90 mmHg 2022-05-05 00:00 BP_systolic 138 mmHg 2022-05-05 00:00 heart_rate 106 /min 2022-05-05 00:00 height_metric 160.02 cm 2022-05-05 00:00 height_standard 63 in 2022-05-05 00:00 o2_saturation 97 % 2022-05-05 00:00 respiration_rate 12 /min 2022-05-05 00:00 temperature_metric 36.33 C 2022-05-05 00:00 temperature_standard 97.4 F 2022-05-05 00:00 weight_metric 108.86 kg 2022-05-05 00:00 weight_standard 240 lb 2022-06-23 00:00 BMI 38.9 kg/m2 2022-06-23 00:00 BP_diastolic 95 mmHg 2022-06-23 00:00 BP_systolic 132 mmHg 2022-06-23 00:00 heart_rate 97 /min 2022-06-23 00:00 height_metric 160.02 cm 2022-06-23 00:00 height_standard 63 in 2022-06-23 00:00 o2_saturation 97 % 2022-06-23 00:00 respiration_rate 16 /min 2022-06-23 00:00 temperature_metric 36.11 C 2022-06-23 00:00 temperature_standard 97 F 2022-06-23 00:00 weight_metric 99.79 kg 2022-06-23 00:00 weight_standard 220 lb
[2022-06-29 09:20] LABS: ALBUMIN 3.8 g/dL (3.2-5.5); BILIRUBIN,TOTAL 1.9 mg/dL (0.2-1.0); CALCIUM 8.7 mg/dL (8.5-10.3); CREATININE 0.8 mg/dL (0.4-1.0); POTASSIUM 3.2 mmol/L (3.5-5.0); TOTAL PROTEIN 7.3 g/dL (6.7-8.2)
[2022-06-29 09:21] LABS: ALBUMIN/GLOBULIN RATIO 1.1 (1.0-2.2)
[2022-06-29] MEDS ORDERED: cefTRIAXone 1 GM VIAL IVP STA (10:10)
[2022-06-29] MEDS ORDERED: VANCOMYCIN INJ 2 GM in SODIUM CHLORIDE 0.9% 500 ML IV STA (10:10)
[2022-06-29 10:15] LABS: CORONAVIRUS 229E-RESP PCR NOT DETECTED; CORONAVIRUS HKU1-RESP PCR NOT DETECTED; CORONAVIRUS NL63-RESP PCR NOT DETECTED; CORONAVIRUS OC43-RESP PCR NOT DETECTED; HUMAN METAPNEUMOVIRUS NOT DETECTED; RHINOVIRUS/ENTEROVIRUS NOT DETECTED; SARS-CoV-2 -RESP PCR PANEL NOT DETECTED
[2022-06-29 10:16] LABS: B. PARAPERTUSSIS- RESP PCR PAN NOT DETECTED; B. PERTUSSIS- RESP PCR PANEL NOT DETECTED; C. PNEUMONIAE- RESP PCR PANEL NOT DETECTED; INFLUENZA A- RESP PCR PANEL NOT DETECTED; INFLUENZA B - RESP PCR PANEL NOT DETECTED; M. PNEUMONIAE- RESP PCR PANEL NOT DETECTED; PARAINFLUENZA VIRUS 1 NOT DETECTED; PARAINFLUENZA VIRUS 2 NOT DETECTED; PARAINFLUENZA VIRUS 3 NOT DETECTED; PARAINFLUENZA VIRUS 4 NOT DETECTED; RSV- RESP PCR PANEL NOT DETECTED
[2022-06-29] MEDS ORDERED: DROPERIDOL 5 MG/2 ML VIAL IVP STA (10:23)
--- NOTE | 2022-06-29 13:51 | HISTORY & PHYSICAL EXAMINATION ---
Chief Complaint - Chief Complaint Chief Complaint: N/V and fever History of Present Illness - Admitted From Admitted From:: ED - History Obtained From History obtained from: ED provider and pt's at her bedside - History of Present Illness HPI Comment/Other: This is a 32-year-old white female with obesity (BMI 43), who is postop day 5 after knee arthroscopy done by Dr. Oreilly. Last night she developed nausea and vomiting and today a fever and presented to the emergency room with these complaints. She was found to have a fever of 104 Fahrenheit and tachycardic at rest with heart rate of 130, BP stable however. Her white count is normal but she has a very elevated lactic acid of 4.0 and elevated procalcitonin level of 10. She was given Toradol for pain, iv Offirmev for her fever and started on IV fluids. Blood cultures have been taken. She got a dose of Ceftriaxone empirically. The knee which had arthroscopy does not show signs of cellulitis without any red streaks, excessive swelling or lymph node enlargement, but it is warm. The ED doctor spoke to Dr. Oreilly who stated that the knee would look much more red and angry if it was the cause of her fever. Her viral markers are all negative. The patient was presented to the Hospitalist team for discussion on further management of her febrile illness, nausea and vomiting, which may be a viral syndrome, but also with elevated markers of a bacterial infection and possible sepsis. She is being placed in Observation status. 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 - Substance History Use: Uses substance without health or social issues: NONE - POLST Patient has POLST: No Meds/Allgy - Home Medications Home Medications: Ambulatory Orders Medication Instructions Recorded Confirmed Fluoxetine HCl [Prozac] 20 mg PO DAILY 09/01/21 06/29/22 Galcanezumab-Gnlm [Emgality 120 mg SQ .Q28D 09/01/21 06/29/22 Syringe] Leuprolide Acetate [Lupron Depot] 11.25 mg IM .[id number] 09/01/21 06/29/22 Ubrogepant [Ubrelvy] 100 mg PO ONCE PRN 09/01/21 06/29/22 Cyclobenzaprine [Flexeril] 5 mg PO TID PRN 06/29/22 06/29/22 Norethindrone Acetate 5 mg PO DAILY 06/29/22 06/29/22 estradioL [Estrace] 1 mg PO DAILY 06/29/22 06/29/22 hydrOXYzine pamoate [Hydroxyzine 25 mg PO Q6H PRN 06/29/22 06/29/22 Pamoate] oxyCODONE [Roxicodone] 5 mg PO Q4HR PRN 06/29/22 06/29/22 - Allergies Allergies/Adverse Reactions: Allergies Allergy/AdvReac Type Severity Reaction Status Date / Time No Known Drug Allergies Allergy Verified 06/29/22 08:31 Review of Systems - Constitutional Constitutional: reports: Fatigue, Fever, Poor appetite - Gastrointestinal Gastrointestinal: reports: Nausea, Vomiting - All Other Systems All Other Systems: reports: Reviewed and negative Exam - Vital Signs Reviewed Vital Signs: Yes Vital Signs: Vital Signs x48h Temp Pulse Resp BP Pulse Ox 06/29/22 11:00 133 H 21 109/78 93 06/29/22 10:30 124 H 15 101/64 94 06/29/22 10:00 37.4 C 129 H 15 124/49 L 96 06/29/22 09:30 128 H 16 105/68 94 06/29/22 09:06 136 H 21 128/83 H 98 06/29/22 08:31 39.5 C H 144 H 22 137/87 H 98 - Physical Exam General Appearance: positive: No acute distress, Other (asleep, awakens and speaks normally) Eyes Bilateral: positive: Normal inspection ENT: positive: No signs of dehydration Neck: positive: Nml inspection (But is morbidly obese) Respiratory: positive: No respiratory distress, Breath sounds nml Cardiovascular: positive: Regular rate & rhythm, No murmur (Very distant heart sounds due to morbid obesity), Tachycardia Abdomen: positive: Non-tender, Nml bowel sounds, Other (Obese, cannot rule out organomegaly) Skin: positive: Warm, Dry Extremities: positive: No pedal edema, Other (Right knee has several pink and dry scars from recent arthroscopy, no streaks or swelling) Neurologic/Psychiatric: positive: Oriented x3, Other (appears fatigued) Sepsis Event Note (H) - Sepsis Criteria Sepsis Criteria: Recorded Temperature greater than 38.3C or Less than 36C, Recorded Heart Rate greater than 90 bpm, WBC count greater than 12,000 or less than 4000, Metabolic: lactate > 2 mmol/L Conclusion/Plan - Problem List (1) Nausea, vomiting and diarrhea Conclusion/Plan: The presentation sounds very much like a viral gastroenteritis. She did not have abdominal imaging but her white blood count is normal and abdominal physical exam is not remarkable Plan: Will treat symptomatically with antiemetics, antipyretics and IV fluids We will not give oxycodone or other narcotics for pain management, since this may have caused her nausea and vomiting Clear liquid diet, advance as tolerated Await her diarrhea work-up if she makes any more diarrhea If not improved with symptomatic treatment, will obtain CT abd/pelvis (2) Elevated lactic acid level Conclusion/Plan: The elevated lactic acid of 4.0 and elevated procalcitonin of 10 are concerning for a bacterial infection along with the fever and tachycardia. Plan: Will obtain urinalysis, which was not collected yet, as she may have a UTI Will watch the R knee for changes that suggest infection Will give a saline bolus, since her tachycardia suggests persistent intravascular volume depletion Continue with IV maintenance fluids at 125 cc/hr Await the blood culture results. Will repeat a lactic acid level in several hours to assure it is improving (3) Status post arthroscopic knee surgery Conclusion/Plan: Clinically, the knee does not look like the source of the fever. This was also the impression of her orthopedist after discussion with the ED provider. Plan: Will order iv Tylenol prn, iv Toradol prn and iv Fentanyl prn for pain control Will try to avoid narcotics since oxycodone may be what caused her nausea and vomiting at home Await bld cx results (4) Hypokalemia Conclusion/Plan: Likely caused by her vomiting and diarrhea Plan: Will give K riders and put potassium in the fluid drip Follow BMP daily (5) Morbid obesity with body mass index (BMI) of 40.0 to 44.9 in adult Conclusion/Plan: Her BMI is 43 - Lab Results Fish Bones: 06/29/22 08:52 06/29/22 08:52
[2022-06-29] MEDS: fentaNYL 100 MCG/2 ML VIAL IVP PRN (14:49)
[2022-06-29] MEDS: PROCHLORPERAZINE 10 MG/2 ML VIAL IVP PRN ×2 (14:49→21:12)
[2022-06-29] MEDS: SODIUM CHLORIDE FLUSH 0.9% 10 ML SYRINGE IVP PRN (14:50)
[2022-06-29] MEDS: D5NS W/20 MEQ KCL 1,000 ML IV SCH (14:53)
[2022-06-29] MEDS ORDERED: SODIUM CHLORIDE 0.9% 500 ML IV ONE (15:21)
[2022-06-29] MEDS: ACETAMINOPHEN 1,000 MG/100 ML 1,000 MG/100 ML BAG IV PRN ×2 (16:02→22:04)
--- NOTE | 2022-06-29 16:03 | PHARMACY PROGRESS NOTE ---
- Best Possible Medication History Admit Date and Time: 06/29/22 1340 Medication History completed: Yes Patient Interview: Completed Secondary Source(s): Spouse/Significant other (SPOUSE AT BEDSIDE. ) As the person ultimately responsible for medication therapy, providers are able to order a medication from an existing home medication list in [facility] via the "Reconcile Routine" prior to Confirmation of that medication by support service tech. Such practice is discouraged except when the physician, in their clinical judgment, deems that a medical need exists for a medication without regard to previous use.
[2022-06-29 16:37] LABS: GLUCOSE, URINE (UA) NEGATIVE (NEGATIVE); KETONES,URINE (UA) TRACE mg/dL (NEGATIVE); LEUKOCYTE ESTERASE, URINE NEGATIVE (NEGATIVE); NITRITE,URINE POSITIVE (NEGATIVE); OCCULT BLOOD,URINE NEGATIVE (NEGATIVE); PH,URINE 5.5 PH (5.0-7.5); PROTEIN,URINE TRACE mg/dL (NEGATIVE); UROBILINOGEN,URINE 1 (NORMAL) E.U./dL (NORMAL)
[2022-06-29 16:47] LABS: BILIRUBIN,URINE MODERATE (NEGATIVE); CLARITY,URINE HAZY (CLEAR); HCG UR QUAL NEGATIVE; ICTOTEST,URINE POSITIVE
[2022-06-29 16:48] LABS: BACTERIA,URINE Moderate /HPF (None Seen); MUCUS,URINE Moderate Strands; RBC,URINE 0-5 /HPF (0-5); SQUAMOUS EPITHELIAL CELL,UR FEW Squamous (<= Few); WBC,URINE 0-3 /HPF (0-5)
[2022-06-29] MEDS: POTASSIUM CHLOR 10 MEQ/100 ML 10 MEQ/100 ML BAG IV SCH ×2 (17:15→19:22)
[2022-06-29] MEDS: SODIUM CHLORIDE FLUSH 0.9% 10 ML SYRINGE IVP SCH ×2 (17:32→23:56)
[2022-06-29] MEDS: METOCLOPRAMIDE 10 MG/2 ML VIAL IVP PRN ×2 (17:43→22:31)
--- NOTE | 2022-06-29 18:36 | CT Report ---
PROCEDURE: ABDOMEN/PELVIS WO INDICATIONS: Persistent N/V TECHNIQUE: Noncontrast 5 mm thick sections acquired from the diaphragms to the symphysis. 5 mm coronal and sagi ttal reformats were then performed. For radiation dose reduction, the following was used: automated exposure control, adjustment of mA and/or kV according to patient size. COMPARISON: None. FINDINGS: Image quality: Excellent. ABDOMEN: Lung bases: No pleural effusion. Left lower lobe pulmonary nodule measuring 0.4 cm. Heart size is nor mal. Solid organs: Liver and spleen are normal in size. Gallbladder is unremarkable. Pancreas is normal in contours. No adrenal nodules. Kidneys are normal in size, without hydronephrosis or nephrolithi asis. Peritoneum and bowel: Unenhanced bowel loops demonstrate normal wall thickness and caliber. Normal a ppendix. No free fluid or air. Nodes and vessels: No retroperitoneal or mesenteric adenopathy by size criteria. Aorta and inferior vena cava are normal in caliber. Miscellaneous: No ventral hernias. PELVIS: Genitourinary: Bladder wall thickness is normal. Miscellaneous: No inguinal hernias or adenopathy. Bones: No suspicious bony lesions. No vertebral body compression fractures. IMPRESSION: No kidney stones. No hydronephrosis. No free fluid. Reviewed by: Negro Conway MD on 06/29/2022 6:34 PM PST Approved by: Negro Conway MD on 06/29/2022 6:34 PM PST Station ID: [id number]
[2022-06-29] MEDS: ONDANSETRON 4 MG/2 ML VIAL IVP PRN (19:22)
[2022-06-29] MEDS: HALOPERIDOL 5 MG/ML VIAL IVP PRN (20:39)
[2022-06-29] MEDS ORDERED: SODIUM CHLORIDE 0.9% 1,000 ML IV ONE (21:08)
[2022-06-29] MEDS: KETOROLAC 30 MG/ML VIAL IVP PRN (21:12)
--- NOTE | 2022-06-29 22:34 | XRAY Report ---
PROCEDURE: Chest 1 View X-Ray INDICATIONS: Tachycardia and dyspnea TECHNIQUE: One view of the chest was acquired. COMPARISON: None. FINDINGS: Surgical changes and devices: None. Lungs and pleura: No pleural effusions or pneumothorax. Lungs are clear. Mediastinum: Mediastinal contours appear normal. Heart size is normal. Bones and chest wall: No suspicious bony lesions. Overlying soft tissues appear unremarkable. IMPRESSION: 1. No acute cardiopulmonary disease. Reviewed by: Wander Woodard MD on 06/29/2022 10:33 PM [facility] Approved by: Wander Woodard MD on 06/29/2022 10:33 PM [facility] Station ID: [id number]
[2022-06-30] MEDS ORDERED: PROCHLORPERAZINE 10 MG/2 ML VIAL IVP SCH (01:00)
[2022-06-30] MEDS: D5NS W/20 MEQ KCL 1,000 ML IV SCH ×2 (01:10→06:05)
[2022-06-30] MEDS: HALOPERIDOL 5 MG/ML VIAL IVP PRN ×2 (02:34→09:27)
[2022-06-30] MEDS: fentaNYL 100 MCG/2 ML VIAL IVP PRN (02:42)
[2022-06-30] MEDS: ACETAMINOPHEN 1,000 MG/100 ML 1,000 MG/100 ML BAG IV PRN ×2 (04:31→14:36)
[2022-06-30] MEDS: METOCLOPRAMIDE 10 MG/2 ML VIAL IVP PRN (06:04)
[2022-06-30 07:32] LABS: CALCIUM 7.1 mg/dL (8.5-10.3); CREATININE 0.9 mg/dL (0.4-1.0); POTASSIUM 3.7 mmol/L (3.5-5.0)
[2022-06-30 07:51] LABS: BASOPHILS % (AUTO) 0.6 %; EOSINOPHILS % (AUTO) 0.5 %; HCT - HEMATOCRIT 37.9 % (37.0-47.0); HGB - HEMOGLOBIN 12.8 g/dL (12.0-16.0); LYMPHOCYTES % (AUTO) 0.7 %; MEAN CORPUSCULAR HEMOGLOBIN 29.8 pg (27.0-31.0); MEAN CORPUSCULAR HGB CONC 33.8 g/dL (32.0-36.0); MEAN CORPUSCULAR VOLUME 88.3 fL (81.0-99.0); MONOCYTES % (AUTO) 1.4 %; NEUTROPHILS % (AUTO) 92.8 %; PLT - PLATELET COUNT 244 10^3/uL (130-450); RED BLOOD COUNT 4.29 10^6/uL (4.20-5.40); RED CELL DISTRIBUTION WIDTH 13.6 % (12.0-15.0)
[2022-06-30 07:59] LABS: ABNORMAL LYMPHS % (MANUAL) 0 %
[2022-06-30 08:22] LABS: BAND NEUTROPHILS % (MANUAL) 20 %; DIFFERENTIAL COMMENT MANUAL DIFFERENTIAL; EOSINOPHILS # (MANUAL) 0.5 10^3/uL (0-0.7); LYMPHOCYTES # (MANUAL) 0.3 10^3/uL (1.5-3.5); LYMPHOCYTES % (MANUAL) 1 %; METAMYELOCYTES % (MANUAL) 3 %; MONOCYTES # (MANUAL) 0.3 10^3/uL (0.0-1.0); NEUTROPHILS # (MANUAL) 25.1 10^3/uL (1.5-6.6); PLATELET ESTIMATE, MANUAL NORMAL (130-450,000) (NORMAL); PLATELET MORPHOLOGY NORMAL APPEARANCE (NORMAL); RBC MORPHOLOGY (MULTIPLE) NORMAL APPEARANCE (NORMAL)
[2022-06-30] MEDS: SODIUM CHLORIDE FLUSH 0.9% 10 ML SYRINGE IVP SCH ×2 (08:32→18:26)
[2022-06-30] MEDS: PROCHLORPERAZINE 10 MG/2 ML VIAL IVP PRN (08:32)
[2022-06-30] MEDS: cefTRIAXone 1 GM in SODIUM CHLORIDE 0.9% MINIBAG 100 ML IV SCH (08:38)
[2022-06-30] MEDS: SODIUM CHLORIDE FLUSH 0.9% 10 ML SYRINGE IVP PRN ×4 (09:28→18:48)
[2022-06-30] MEDS ORDERED: iohexoL-300 100 ML VIAL ONE ×2 (09:40→16:24)
[2022-06-30] MEDS ORDERED: VANCOMYCIN INJ 1 GM, VANCOMYCIN INJ 500 MG in SODIUM CHLORIDE 0.9% 500 ML IV SCH (10:00)
[2022-06-30] MEDS: iohexoL-300 100 ML VIAL IVP ONE ×2 (10:17→19:54)
--- NOTE | 2022-06-30 10:56 | CT Report ---
PROCEDURE: LOWER EXTREMITY W - RT INDICATIONS: Recent R knee surgery, now sepsis with FUO TECHNIQUE: After administration of contrast 3 mm axial sections acquired of the right knee, with coronal and sag ittal reformats. For radiation dose reduction, the following was used: automated exposure control, adjustment of mA and/or kV according to patient size. CONTRAST: 100ml Omnipaque 300 COMPARISON: None. FINDINGS: Image quality: Limited secondary to obliquity. Bones: Instrumentation tracks within the patella and distal femur are present. No fracture. No osseo us lesion. Soft tissues: Small knee joint effusion. Moderate diffuse subcutaneous fat stranding. No peripheral fluid collections. IMPRESSION: 1. Post surgical sequelae. 2. No acute osseous process. 3. Small knee joint effusion. 4. Moderate subcutaneous edema versus cellulitis. Reviewed by: Irving Inman MD on 06/30/2022 10:54 AM PST Approved by: Irving Inman MD on 06/30/2022 10:54 AM PST Station ID: [id number]
--- NOTE | 2022-06-30 11:34 | ANESTHESIA PROCEDURE NOTE ---
Anesth Central Line Template - Central Line Central Line Preparation: Consent Obtained, Time out completed, Ultrasound used, Sterile prep and drape Central line location: Right IJ Central line type: Triple lumen Central line catheter tip site resides: Superior vena cava (SVC) Central line aftercare: Chlorhexidine disc placed, Secured, Placement confirmed, No pneumothorax, No complications, Pt tolerated well Other Info/Details: Right neck and chest prepped with chlorohexadine. Patient placed in trendelenberg position. Full sterile gown, gloves, mask and drape utilized. Right IJ visualized under ultrasound and collapses with inspiration. After multiple attempts, vein was accessed with 18G needle. Wire advanced with ease and a triple lumen central line was placed over the wire with ease. All 3 ports aspirate blood and flush with ease. Line was sutured in place. Chest xray shows tip in the distal SVC.
--- NOTE | 2022-06-30 11:37 | XRAY Report ---
PROCEDURE: Chest for Line Placement INDICATIONS: central line placement TECHNIQUE: One view of the chest was acquired. COMPARISON: Chest x-ray 06/29/2022 FINDINGS: Surgical changes and devices: Right-sided central venous catheter is present with distal tip project ing over the distal SVC/right atrial junction. Lungs and pleura: No pleural effusions or pneumothorax. Lungs are clear. Mediastinum: Mediastinal contours appear normal. Heart size is normal. Bones and chest wall: No suspicious bony lesions. Overlying soft tissues appear unremarkable. IMPRESSION: Right central venous catheter as above. Reviewed by: Cathy Neff MD on 06/30/2022 11:36 AM PST Approved by: Cathy Neff MD on 06/30/2022 11:36 AM PST Station ID: [id number]
--- NOTE | 2022-06-30 11:44 | PROVIDER PROGRESS NOTE ---
Subjective - Subjective Pt reports feeling: Worse (Feels achy all over, still nauseatd, RN reported she needs all 4 antiemetics that were ordered. Then RN reported pt is tensing and arching her back, her neck and lower jaw toward L) Objective - Vital Signs/Intake & Output Vital Signs: Vital Signs Temp Pulse Resp BP Pulse Ox 06/30/22 08:18 37.2 C 131 H 24 117/71 96 Intake & Output: Intake & Output 06/27/22 06/28/22 06/29/22 06/30/22 23:59 23:59 23:59 23:59 Intake Total 5608.333 2217.916 Output Total 300 250 Balance 5308.333 1967.916 - Objective General Appearance: positive: Severe distress (Patient is tachypneic, nauseated and retching and having pain in her mid back in the scapular region, also arching her back and fears feels like her neck is "pulling her" toward the left) Eyes Bilateral: positive: Normal inspection ENT: positive: Dry mucous membranes, Other (Lower jaw is pulled toward left, she is able to bring it to midline intentionally. Negative [place]ek sign) Neck: positive: Nml inspection, No JVD Respiratory: positive: Breath sounds nml Cardiovascular: positive: Regular rate & rhythm, No murmur, Tachycardia Abdomen: positive: Non-tender, Other (Obese. Normal bowel sounds) Skin: positive: Warm, Dry Extremities: positive: Other (R knee has several surgical scars, red. Lateral R knee redness and warmth.) Neurologic/Psychiatric: positive: Oriented x3, Motor nml, Other (Muscles tense causing arching and Leftward head and jaw deviation) - Lab Results Fish Bones: 06/30/22 07:17 06/30/22 12:57 Other Labs: Lab Results x24hrs 06/30/22 06/30/22 06/30/22 Range/Units 07:17 07:17 07:17 WBC 27.0 H (4.8-10.8) x10^3/uL RBC 4.29 (4.20-5.40) 10^6/uL Hgb 12.8 (12.0-16.0) g/dL Hct 37.9 (37.0-47.0) % MCV 88.3 (81.0-99.0) fL MCH 29.8 (27.0-31.0) pg MCHC 33.8 (32.0-36.0) g/dL RDW 13.6 (12.0-15.0) % Plt Count 244 (130-450) 10^3/uL MPV 10.0 (7.9-10.8) fL Neut # (Auto) Not Reportable Lymph # (Auto) Not Reportable Johnston # (Auto) Not Reportable Eos # (Auto) Not Reportable Baso # (Auto) Not Reportable Absolute Nucleated RBC Not Reportable Total Counted 100 Band Neuts % (Manual) 20 H (0 - 10) % Abnorm Lymph % (Manual) 0 % Metamyelocytes % 3 H ( - 0) % Nucleated RBC % Not Reportable Neutrophils # (Manual) 25.1 H (1.5-6.6) 10^3/uL Lymphocytes # (Manual) 0.3 L (1.5-3.5) 10^3/uL Monocytes # (Manual) 0.3 (0.0-1.0) 10^3/uL Eosinophils # (Manual) 0.5 (0-0.7) 10^3/uL Basophils # (Manual) 0.0 (0-0.1) 10^3/uL Differential Comment MANUAL DIFFERENTIAL Platelet Estimate NORMAL (130-450,000) (NORMAL) Platelet Morphology NORMAL APPEARANCE (NORMAL) RBC Morph Micro Appear NORMAL APPEARANCE (NORMAL) Sodium 133 L (135-145) mmol/L Potassium 3.7 (3.5-5.0) mmol/L Chloride 107 (101-111) mmol/L Carbon Dioxide 15 L (21-32) mmol/L Anion Gap 11.0 (6-13) BUN 13 (6-20) mg/dL Creatinine 0.9 (0.4-1.0) mg/dL Estimated GFR (MDRD) 74 L (>89) Glucose 152 H (70-100) mg/dL Lactic Acid (0.5-2.2) mmol/L Calcium 7.1 L (8.5-10.3) mg/dL Troponin I High Sens (2.3-14.8) ng/L Procalcitonin 16.16 H* (<0.5) ng/mL Urine Color Urine Clarity (CLEAR) Urine pH (5.0-7.5) PH Ur Specific [place] (1.002-1.030) Urine Protein (NEGATIVE) mg/dL Urine Glucose (UA) (NEGATIVE) mg/dL Urine Ketones (NEGATIVE) mg/dL Urine Occult Blood (NEGATIVE) Urine Nitrite (NEGATIVE) Urine Bilirubin (NEGATIVE) Urine Urobilinogen (NORMAL) E.U./dL Ur Leukocyte Esterase (NEGATIVE) Urine RBC (0-5) /HPF Urine WBC (0-5) /HPF Ur Squamous Epith Cells (<= Few) Urine Bacteria (None Seen) /HPF Urine Mucus Ur Microscopic Review Urine Culture Comments Urine HCG, Qual Stl C. diff Tox B Gene (NEGATIVE) 06/29/22 06/29/22 06/29/22 Range/Units 23:34 19:32 16:20 WBC (4.8-10.8) x10^3/uL RBC (4.20-5.40) 10^6/uL Hgb (12.0-16.0) g/dL Hct (37.0-47.0) % MCV (81.0-99.0) fL MCH (27.0-31.0) pg MCHC (32.0-36.0) g/dL RDW (12.0-15.0) % Plt Count (130-450) 10^3/uL MPV (7.9-10.8) fL Neut # (Auto) Lymph # (Auto) Johnston # (Auto) Eos # (Auto) Baso # (Auto) Absolute Nucleated RBC Total Counted Band Neuts % (Manual) (0 - 10) % Abnorm Lymph % (Manual) % Metamyelocytes % ( - 0) % Nucleated RBC % Neutrophils # (Manual) (1.5-6.6) 10^3/uL Lymphocytes # (Manual) (1.5-3.5) 10^3/uL Monocytes # (Manual) (0.0-1.0) 10^3/uL Eosinophils # (Manual) (0-0.7) 10^3/uL Basophils # (Manual) (0-0.1) 10^3/uL Differential Comment Platelet Estimate (NORMAL) Platelet Morphology (NORMAL) RBC Morph Micro Appear (NORMAL) Sodium (135-145) mmol/L Potassium (3.5-5.0) mmol/L Chloride (101-111) mmol/L Carbon Dioxide (21-32) mmol/L Anion Gap (6-13) BUN (6-20) mg/dL Creatinine (0.4-1.0) mg/dL Estimated GFR (MDRD) (>89) Glucose (70-100) mg/dL Lactic Acid (0.5-2.2) mmol/L Calcium (8.5-10.3) mg/dL Troponin I High Sens 4.6 (2.3-14.8) ng/L Procalcitonin (<0.5) ng/mL Urine Color Urine Clarity (CLEAR) Urine pH (5.0-7.5) PH Ur Specific [place] (1.002-1.030) Urine Protein (NEGATIVE) mg/dL Urine Glucose (UA) (NEGATIVE) mg/dL Urine Ketones (NEGATIVE) mg/dL Urine Occult Blood (NEGATIVE) Urine Nitrite (NEGATIVE) Urine Bilirubin (NEGATIVE) Urine Urobilinogen (NORMAL) E.U./dL Ur Leukocyte Esterase (NEGATIVE) Urine RBC (0-5) /HPF Urine WBC (0-5) /HPF Ur Squamous Epith Cells (<= Few) Urine Bacteria (None Seen) /HPF Urine Mucus Ur Microscopic Review Urine Culture Comments Urine HCG, Qual NEGATIVE Stl C. diff Tox B Gene NEGATIVE (NEGATIVE) 06/29/22 06/29/22 Range/Units 16:20 16:03 WBC (4.8-10.8) x10^3/uL RBC (4.20-5.40) 10^6/uL Hgb (12.0-16.0) g/dL Hct (37.0-47.0) % MCV (81.0-99.0) fL MCH (27.0-31.0) pg MCHC (32.0-36.0) g/dL RDW (12.0-15.0) % Plt Count (130-450) 10^3/uL MPV (7.9-10.8) fL Neut # (Auto) Lymph # (Auto) Johnston # (Auto) Eos # (Auto) Baso # (Auto) Absolute Nucleated RBC Total Counted Band Neuts % (Manual) (0 - 10) % Abnorm Lymph % (Manual) % Metamyelocytes % ( - 0) % Nucleated RBC % Neutrophils # (Manual) (1.5-6.6) 10^3/uL Lymphocytes # (Manual) (1.5-3.5) 10^3/uL Monocytes # (Manual) (0.0-1.0) 10^3/uL Eosinophils # (Manual) (0-0.7) 10^3/uL Basophils # (Manual) (0-0.1) 10^3/uL Differential Comment Platelet Estimate (NORMAL) Platelet Morphology (NORMAL) RBC Morph Micro Appear (NORMAL) Sodium (135-145) mmol/L Potassium (3.5-5.0) mmol/L Chloride (101-111) mmol/L Carbon Dioxide (21-32) mmol/L Anion Gap (6-13) BUN (6-20) mg/dL Creatinine (0.4-1.0) mg/dL Estimated GFR (MDRD) (>89) Glucose (70-100) mg/dL Lactic Acid 3.7 H* (0.5-2.2) mmol/L Calcium (8.5-10.3) mg/dL Troponin I High Sens (2.3-14.8) ng/L Procalcitonin (<0.5) ng/mL Urine Color DARK YELLOW Urine Clarity HAZY (CLEAR) Urine pH 5.5 (5.0-7.5) PH Ur Specific [place] 1.025 (1.002-1.030) Urine Protein TRACE (NEGATIVE) mg/dL Urine Glucose (UA) NEGATIVE (NEGATIVE) mg/dL Urine Ketones TRACE (NEGATIVE) mg/dL Urine Occult Blood NEGATIVE (NEGATIVE) Urine Nitrite POSITIVE H (NEGATIVE) Urine Bilirubin MODERATE H (NEGATIVE) Urine Urobilinogen 1 (NORMAL) (NORMAL) E.U./dL Ur Leukocyte Esterase NEGATIVE (NEGATIVE) Urine RBC 0-5 (0-5) /HPF Urine WBC 0-3 (0-5) /HPF Ur Squamous Epith Cells FEW Squamous (<= Few) Urine Bacteria Moderate H (None Seen) /HPF Urine Mucus Moderate Strands Ur Microscopic Review INDICATED Urine Culture Comments INDICATED Urine HCG, Qual Stl C. diff Tox B Gene (NEGATIVE) Sepsis Event Note (H) - Evaluation Current Stage of Sepsis: Severe sepsis Possible source of Sepsis: positive: Bone/Joint, Genitourinary, Skin/soft tissue, Wound - Sepsis Criteria Sepsis Criteria: Recorded Temperature greater than 38.3C or Less than 36C, Recorded Heart Rate greater than 90 bpm, Recorded Respiratory Rate greater than 20, WBC count greater than 10% bands, WBC count greater than 12,000 or less than 4000, Metabolic: lactate > 2 mmol/L Assessment/Plan - Problem List (1) Severe sepsis Impression: She had a fever, an elevated L.A. and was tachycardic at admission yesterday, but had a normal WBC. Overnight she has had a fever and remained tachycardic. Even on iv fluids, the L.A. only decreased from 4 to 3.7. This a.m. she was a hard-stick by phlebotomy and labs were delayed. A central line needed to be inserted by Anesthesia. which was also delayed, since she copuld not hold still from nausea and retching. WBC darlene from normal to 26 today Procalcitonin darlene from 10 yesterday to 16 today L.A. for today was ordered and still pending>> came back even more elevated at 4.[address] R knee, and it was read as having possible cellulitis During R IJ placement, she became tachypneic and was put on O2 via n.c. by Anesthesia ABG ordered, concern over acidosis She then started to report mid-back pain 03/29 which she thought was from the way she slept. Plan: With her persistent tachycardia this morning, she has been admitted from Observation to Inpatient status Her worsening overall status with tachypnea, another fever spike this a.m. and new elevated white blood count, she likely has severe sepsis and she will be transferred to the ICU and treated Continue with aggressive IV fluids. Fluids changed to LR at 150 cc/hour, NS at 150 cc/hour Follow her L. A. Await uroine and blood cx obtained yesterday New blood cx drawn and the pt spiked a fever just as cultures being drawn Will broaden antibiotics to cover the recent knee surgery and skin organisms as a possible source of infection: Vancomycin ordered, discussed with pharmacist. Given the presistent tachycardia and new tachypnea and new mid-back pain, S/P ortho surgery, concern for an acute PE, therefore will start Lovenox 110 mg BID, empirically for a poss PE. Will try to obtain CTA if she is stable enough to have that done today Will order a Phelps for careful hemodynamic and fluid monitoring of I's and O's She is in critical condition CRITICAL CARE TIME SPENT: 100 min (evaluating patient, re-evaluating patient, updating pt and family at bedside, ordering then reviewing labs, ordering transfer and new meds). (2) [place] Patient has acute hypocalcemia, yesterday calcium was 8.3, today down to 7.1 with a normal albumin. This is consistent with severe sepsis Plan: We will also obtain magnesium level and phosphorus level, correct these if low Will give IV calcium gluconate over 15-minute infusions until her symptoms have resolved. (3) Tachypnea She started to become tachypneic with her fever and also at that point described new mid back pain, between the shoulder blades, rated 10/10. She told me she had it just briefly last night then it recurred this morning now and thought it was the way she slept. It continues. She cannot tell if it is pleuritic. She has never had it before. Concern is that this is PE after undergoing orthopedic surgery and being more immobilized than normal Plan: Transferred to the ICU. Obtain ABG. Begin empiric Lovenox at therapeutic doses of twice daily Will try to obtain CTA if she is stable enough to have that done today Will also obtain an Echo to eval chamber sizes and function (4) UTI There was no UA done at admission. UA was done after she was placed in Observation and was quite remarkable for elevated nitrates and had moderate white blood cells and moderate bacteria, culture was indicated. Possibly she developed her UTI from having diarrhea Plan: Ceftriaxone had been given empirically in the ED and ceftriaxone iv daily was ordered to be continued (5) Nausea, vomiting Conclusion/Plan: The presentation sounded very much like a viral gastroenteritis. She did not have abdominal imaging done in the ED until after placedin Observation last evening. The CT was unremarkable Plan: Continue to treat symptomatically with antiemetics, antipyretics and IV fluids We will try not give oxycodone or other narcotics for pain management, since this may have caused her nausea and vomiting (she was prescribed oxycodone after the knee surgery) Diet will be de-escalated from clear liquids to n.p.o. except sips and chips, and if she can, to swallow meds Await her diarrhea work-up if she makes any more diarrhea (6) Status post arthroscopic knee surgery Conclusion/Plan: Clinically, the knee did not look like the source of the fever when she was in the ED. This was also the impression of her orthopedist after discussion with the ED provider. Today the lateral area of the knee is red and warm which is a new finding. Because of this and the persistent fever, newly elevated white blood count and tachycardia, she underwent a CT of the right leg to search for postop complications that might be causing an infection. There was no finding of abscess or fluid collection related to the joint but Radciology read the CT scan as having cellulitis Plan: We broadened her antibiotics to include vancomycin today We will ask for the RN to outline the area of redness and watch its Continue iv Tylenol prn, iv Toradol prn and iv Fentanyl prn for pain control, since she cannot currently take po meds due to N/V Will try to avoid narcotics since oxycodone may be what caused her nausea and vomiting at home Await bld cx results, [facility] and a sewt drawn today. (7) Cellulitis R knee Clinically the right knee lateral aspect is more red than yesterday and warm. CT of the knee was read as probable cellulitis Plan: Await blood culture results drawn yesterday and today Continue with ceftriaxone We will add vancomycin (8) Hypokalemia Conclusion/Plan: Likely caused by her vomiting and diarrhea Plan: Will give K riders Follow BMP daily (9) Morbid obesity with body mass index (BMI) of 40.0 to 44.9 in adult Conclusion/Plan: Her BMI is 43. This had made venipuncture very difficult in addition to her being volume contracted.
[2022-06-30] MEDS ORDERED: ENOXAPARIN 40 MG/0.4 ML SYRINGE SUBQ SCH (12:00)
[2022-06-30 12:54] LABS: ABG PH 7.46 (7.35-7.45); ABG PO2 72 mmHg (80-100)
[2022-06-30 12:55] LABS: ABG BASE EXCESS -7.3 mmol/L (-2.0-3.0); ABG HCO3 14.1 mmol/L (22.0-26.0); ABG OXYGEN SATURATION 96 % (94-98); ABG TCO2 14.8 MMOL/L (21.0-29.0); ALLEN TEST POSITIVE
[2022-06-30 12:57] LABS: ABG PCO2 20 mmHg (34-45)
[2022-06-30] MEDS: LACTATED RINGERS 1,000 ML IV SCH ×2 (13:02→20:26)
[2022-06-30] MEDS: SODIUM CHLORIDE 0.9% 1,000 ML IV SCH ×2 (13:02→20:24)
[2022-06-30 13:24] LABS: CALCIUM, IONIZED 1.01 mmol/L (1.15-1.33); VBG PH 7.337 (7.31-7.41)
[2022-06-30] MEDS: ENOXAPARIN 120 MG/0.8 ML SYRINGE SUBQ SCH ×2 (13:27→21:15)
[2022-06-30 13:39] LABS: CALCIUM 7.1 mg/dL (8.5-10.3); CREATININE 0.9 mg/dL (0.4-1.0); MAGNESIUM 1.2 mg/dL (1.7-2.8); POTASSIUM 3.7 mmol/L (3.5-5.0)
[2022-06-30] MEDS ORDERED: CALCIUM GLUC 1,000MG/50ML-NACL 1,000 MG/50 ML BAG IV ONE ×2 (14:00→14:32)
[2022-06-30] MEDS ORDERED: POTASSIUM PHOSPHATE 21 MMOL in SODIUM CHLORIDE 0.9% 250 ML IV ONE (14:05)
[2022-06-30] MEDS: MAGNESIUM SULFATE 2 GRAM 2 GM/50 ML BAG IV SCH ×2 (14:21→15:11)
[2022-06-30] MEDS: KETOROLAC 30 MG/ML VIAL IVP PRN ×2 (15:23→20:11)
[2022-06-30] MEDS: ONDANSETRON 4 MG/2 ML VIAL IVP PRN (15:24)
[2022-06-30 18:36] LABS: CALCIUM, IONIZED 1.03 mmol/L (1.15-1.33); VBG PH 7.324 (7.31-7.41)
[2022-06-30 18:39] LABS: CALCIUM 7.2 mg/dL (8.5-10.3)
--- NOTE | 2022-06-30 18:44 | CT Report ---
PROCEDURE: ANGIO CHEST W/WO INDICATIONS: Mid back pain, SOB CONTRAST: 80ml Omnipaque 300 TECHNIQUE: After the administration of intravenous contrast, 2 mm axial images were acquired from the pulmonary apices to the posterior costophrenic angles during the arterial phase. In addition, 1 mm lung kernel and 5 mm soft tissue kernel reconstructions were performed. 3-dimensional coronal oblique maximum int ensity projection (MIP) reformats, 8 mm axial MIP, and 5 mm coronal and sagittal MPR reformats were t hen performed through the thorax. For radiation dose reduction, the following was used: automated exp osure control, adjustment of mA and/or kV according to patient size. COMPARISON: None FINDINGS: Image quality: Limited examination secondary to technical factors and body habitus. Motion artifact i s present. Pulmonary arteries: Pulmonary arteries are normal in size, and demonstrate no intraluminal filling d efects to suggest central pulmonary embolism. Lungs and pleura: Lungs are clear. No pleural effusions or pneumothorax. Central and peripheral ai rways are patent. Mediastinum: Heart size is normal, without pericardial effusion. No mediastinal or hilar adenopathy . Thoracic aorta is normal in caliber and enhancement. Esophagus is normal in caliber, without hiat al hernia. Bones and chest wall: No suspicious bony lesions. Ribs and thoracic spine appear intact throughout. No axillary or supraclavicular adenopathy. The thyroid is normal in size and there are no incident al findings. Abdomen: Visualized upper abdominal solid organs appear normal in the early arterial phase of enhanc ement. IMPRESSION: 1. Limited examination demonstrating no definite pulmonary embolus. 2. No acute process. Reviewed by: Irving Inman MD on 06/30/2022 6:43 PM PST Approved by: Irving Inman MD on 06/30/2022 6:43 PM PST Station ID: [id number]
[2022-06-30 19:45] LABS: IONIZED CALCIUM IF INDICATED YES
[2022-07-01] MEDS: VANCOMYCIN INJ 1 GM, VANCOMYCIN INJ 500 MG in SODIUM CHLORIDE 0.9% 500 ML IV SCH ×2 (00:19→12:43)
[2022-07-01] MEDS: ACETAMINOPHEN 1,000 MG/100 ML 1,000 MG/100 ML BAG IV PRN ×4 (00:31→18:09)
[2022-07-01] MEDS: ONDANSETRON 4 MG/2 ML VIAL IVP PRN (00:47)
[2022-07-01] MEDS: LACTATED RINGERS 1,000 ML IV SCH ×4 (03:08→20:16)
[2022-07-01] MEDS: SODIUM CHLORIDE 0.9% 1,000 ML IV SCH ×3 (03:12→18:08)
[2022-07-01] MEDS: SODIUM CHLORIDE FLUSH 0.9% 10 ML SYRINGE IVP SCH ×3 (03:13→17:01)
[2022-07-01 05:02] LABS: BASOPHILS % (AUTO) 0.3 %; EOSINOPHILS % (AUTO) 2.7 %; HCT - HEMATOCRIT 32.3 % (37.0-47.0); HGB - HEMOGLOBIN 10.8 g/dL (12.0-16.0); LYMPHOCYTES % (AUTO) 3.6 %; MEAN CORPUSCULAR HEMOGLOBIN 29.5 pg (27.0-31.0); MEAN CORPUSCULAR HGB CONC 33.4 g/dL (32.0-36.0); MEAN CORPUSCULAR VOLUME 88.3 fL (81.0-99.0); MEAN PLATELET VOLUME 10.3 fL (7.9-10.8); MONOCYTES % (AUTO) 1.3 %; NEUTROPHILS % (AUTO) 91.4 %; PLT - PLATELET COUNT 153 10^3/uL (130-450); RED BLOOD COUNT 3.66 10^6/uL (4.20-5.40); RED CELL DISTRIBUTION WIDTH 14.3 % (12.0-15.0); WHITE BLOOD COUNT 16.8 x10^3/uL (4.8-10.8)
[2022-07-01 05:05] LABS: ABNORMAL LYMPHS % (MANUAL) 0 %
[2022-07-01 05:13] LABS: CREATININE 0.6 mg/dL (0.4-1.0); POTASSIUM 3.4 mmol/L (3.5-5.0)
[2022-07-01 05:16] LABS: BAND NEUTROPHILS % (MANUAL) 7 %; BASOPHILS # (MANUAL) 0.2 10^3/uL (0-0.1); BASOPHILS % (MANUAL) 1 %; EOSINOPHILS # (MANUAL) 0.5 10^3/uL (0-0.7); LYMPHOCYTES # (MANUAL) 0.2 10^3/uL (1.5-3.5); LYMPHOCYTES % (MANUAL) 1 %; METAMYELOCYTES % (MANUAL) 2 %; MONOCYTES # (MANUAL) 0.5 10^3/uL (0.0-1.0); NEUTROPHILS # (MANUAL) 15.1 10^3/uL (1.5-6.6)
[2022-07-01 05:17] LABS: DIFFERENTIAL COMMENT MANUAL DIFFERENTIAL; PLATELET ESTIMATE, MANUAL NORMAL (130-450,000) (NORMAL); PLATELET MORPHOLOGY NORMAL APPEARANCE (NORMAL); RBC MORPHOLOGY (MULTIPLE) NORMAL APPEARANCE (NORMAL); WBC MORPHOLOGY (MULTIPLE) NORMAL APPEARANCE (NORMAL)
[2022-07-01 05:47] LABS: CALCIUM, IONIZED 1.02 mmol/L (1.15-1.33); VBG PH 7.385 (7.31-7.41)
[2022-07-01 05:57] LABS: MAGNESIUM 1.9 mg/dL (1.7-2.8); PHOSPHORUS 1.6 mg/dL (2.5-4.6)
[2022-07-01] MEDS ORDERED: POTASSIUM CHLOR 20 MEQ/100 ML 20 MEQ/100 ML BAG IV SCH (06:00)
[2022-07-01] MEDS ORDERED: CALCIUM CARBONATE CHEW 500 MG TABLET ONE (06:54)
[2022-07-01] MEDS: CALCIUM CARBONATE CHEW 500 MG TABLET PO SCH ×2 (07:00→11:46)
[2022-07-01] MEDS ORDERED: CALCIUM GLUC 1,000MG/50ML-NACL 1,000 MG/50 ML BAG IV ONE ×2 (07:30→16:00)
[2022-07-01] MEDS ORDERED: POTASSIUM CHLOR 10 MEQ/100 ML 10 MEQ/100 ML BAG IV ONE (07:33)
[2022-07-01] MEDS ORDERED: POTASSIUM PHOSPHATE 15 MMOL in SODIUM CHLORIDE 0.9% 250 ML IV ONE ×3 (07:34→15:11)
[2022-07-01] MEDS: ENOXAPARIN 40 MG/0.4 ML SYRINGE SUBQ SCH (08:50)
[2022-07-01] MEDS: cefTRIAXone 1 GM in SODIUM CHLORIDE 0.9% MINIBAG 100 ML IV SCH (08:50)
[2022-07-01] MEDS ORDERED: SODIUM CHLORIDE 0.9% 1,000 ML IV SCH (10:22)
[2022-07-01] MEDS: KETOROLAC 30 MG/ML VIAL IVP PRN (13:02)
[2022-07-01] MEDS: IBUPROFEN 400 MG TABLET PO PRN ×2 (13:09→20:12)
[2022-07-01 14:39] LABS: CALCIUM, IONIZED 1.09 mmol/L (1.15-1.33); VBG PH 7.381 (7.31-7.41)
[2022-07-01 14:40] LABS: MAGNESIUM 1.8 mg/dL (1.7-2.8); PHOSPHORUS 1.6 mg/dL (2.5-4.6); POTASSIUM 3.4 mmol/L (3.5-5.0)
[2022-07-01] MEDS ORDERED: CALCIUM CHLORIDE 1,000 MG in SODIUM CHLORIDE 0.9% 50 ML IV ONE (15:11)
[2022-07-01] MEDS ORDERED: MAGNESIUM SULFATE 2 GRAM 2 GM/50 ML BAG IV ONE (15:11)
[2022-07-01] MEDS: POTASSIUM CHLOR 20 MEQ/100 ML 20 MEQ/100 ML BAG IV SCH ×2 (15:42→16:52)
[2022-07-01] MEDS: PROCHLORPERAZINE 10 MG/2 ML VIAL IVP PRN (18:08)
--- NOTE | 2022-07-01 18:26 | PROVIDER PROGRESS NOTE ---
Subjective - Subjective Pt reports feeling: Improved (She no longer has back spasms that cause arching of her back or leftward neck flexion. She is not nauseated, tolerated clear liquids for lunch. She still has a low-grade fever. She is much more awake and is not tachypneic, is able to describe the events that led to this hospitalization) Objective - Vital Signs/Intake & Output Reviewed Vital Signs: Yes Vital Signs: Vital Signs Temp Pulse Resp BP Pulse Ox 07/01/22 17:00 37.3 C 112 H 18 120/81 H 97 07/01/22 16:00 37.6 C 112 H 24 117/83 H 99 07/01/22 15:00 37.8 C 112 H 20 121/79 97 Intake & Output: Intake & Output 06/28/22 06/29/22 06/30/22 07/01/22 23:59 23:59 23:59 23:59 Intake Total 5608.333 5910.583 5225.0 Output Total 784 238 2070 Balance 5308.333 4915.583 3740.0 - Objective General Appearance: positive: No acute distress, Alert, Other (Obese) Eyes Bilateral: positive: Normal inspection, EOMI ENT: positive: ENT inspection nml, No signs of dehydration Neck: positive: Nml inspection, No JVD Respiratory: positive: No respiratory distress, Breath sounds nml Cardiovascular: positive: Regular rate & rhythm, No murmur Abdomen: positive: Non-tender, No distention, Other (Obese) Extremities: positive: Other (Right foot has 1+ edema. Right knee lateral aspect has redness about 6 x 6 cm and the central area has a candelaria pimple. There are 3 clean appearing suture scars on the upper and lower knee and medial knee) - Lab Results Fish Bones: 07/01/22 04:25 07/01/22 14:10 Other Labs: Lab Results x24hrs 07/01/22 07/01/22 07/01/22 Range/Units 14:10 14:10 05:35 WBC (4.8-10.8) x10^3/uL RBC (4.20-5.40) 10^6/uL Hgb (12.0-16.0) g/dL Hct (37.0-47.0) % MCV (81.0-99.0) fL MCH (27.0-31.0) pg MCHC (32.0-36.0) g/dL RDW (12.0-15.0) % Plt Count (130-450) 10^3/uL MPV (7.9-10.8) fL Neut # (Auto) Lymph # (Auto) [place] # (Auto) Eos # (Auto) Baso # (Auto) Absolute Nucleated RBC Total Counted Band Neuts % (Manual) (0 - 10) % Abnorm Lymph % (Manual) % Metamyelocytes % ( - 0) % Nucleated RBC % Neutrophils # (Manual) (1.5-6.6) 10^3/uL Lymphocytes # (Manual) (1.5-3.5) 10^3/uL Monocytes # (Manual) (0.0-1.0) 10^3/uL Eosinophils # (Manual) (0-0.7) 10^3/uL Basophils # (Manual) (0-0.1) 10^3/uL Differential Comment WBC Morphology (NORMAL) Platelet Estimate (NORMAL) Platelet Morphology (NORMAL) RBC Morph Micro Appear (NORMAL) VBG pH 7.381 7.385 (7.31-7.41) Ionized Calcium 1.09 L 1.02 L (1.15-1.33) mmol/L Sodium (135-145) mmol/L Potassium 3.4 L (3.5-5.0) mmol/L Chloride (101-111) mmol/L Carbon Dioxide (21-32) mmol/L Anion Gap (6-13) BUN (6-20) mg/dL Creatinine (0.4-1.0) mg/dL Estimated GFR (MDRD) (>89) Glucose (70-100) mg/dL Lactic Acid (0.5-2.2) mmol/L Calcium (8.5-10.3) mg/dL Phosphorus 1.6 L (2.5-4.6) mg/dL Magnesium 1.8 (1.7-2.8) mg/dL 07/01/22 07/01/22 07/01/22 Range/Units 04:25 04:25 04:25 WBC 16.8 H (4.8-10.8) x10^3/uL RBC 3.66 L (4.20-5.40) 10^6/uL Hgb 10.8 L (12.0-16.0) g/dL Hct 32.3 L (37.0-47.0) % MCV 88.3 (81.0-99.0) fL MCH 29.5 (27.0-31.0) pg MCHC 33.4 (32.0-36.0) g/dL RDW 14.3 (12.0-15.0) % Plt Count 153 (130-450) 10^3/uL MPV 10.3 (7.9-10.8) fL Neut # (Auto) Not Reportable Lymph # (Auto) Not Reportable [place] # (Auto) Not Reportable Eos # (Auto) Not Reportable Baso # (Auto) Not Reportable Absolute Nucleated RBC Not Reportable Total Counted 100 Band Neuts % (Manual) 7 (0 - 10) % Abnorm Lymph % (Manual) 0 % Metamyelocytes % 2 H ( - 0) % Nucleated RBC % Not Reportable Neutrophils # (Manual) 15.1 H (1.5-6.6) 10^3/uL Lymphocytes # (Manual) 0.2 L (1.5-3.5) 10^3/uL Monocytes # (Manual) 0.5 (0.0-1.0) 10^3/uL Eosinophils # (Manual) 0.5 (0-0.7) 10^3/uL Basophils # (Manual) 0.2 H (0-0.1) 10^3/uL Differential Comment MANUAL DIFFERENTIAL WBC Morphology NORMAL APPEARANCE (NORMAL) Platelet Estimate NORMAL (130-450,000) (NORMAL) Platelet Morphology NORMAL APPEARANCE (NORMAL) RBC Morph Micro Appear NORMAL APPEARANCE (NORMAL) VBG pH (7.31-7.41) Ionized Calcium (1.15-1.33) mmol/L Sodium 137 (135-145) mmol/L Potassium 3.4 L (3.5-5.0) mmol/L Chloride 111 (101-111) mmol/L Carbon Dioxide 18 L (21-32) mmol/L Anion Gap 8.0 (6-13) BUN 10 (6-20) mg/dL Creatinine 0.6 (0.4-1.0) mg/dL Estimated GFR (MDRD) 117 (>89) Glucose 91 (70-100) mg/dL Lactic Acid (0.5-2.2) mmol/L Calcium 7.0 L (8.5-10.3) mg/dL Phosphorus 1.6 L (2.5-4.6) mg/dL Magnesium 1.9 (1.7-2.8) mg/dL 06/30/22 06/30/22 06/30/22 Range/Units 18:40 18:40 18:15 WBC (4.8-10.8) x10^3/uL RBC (4.20-5.40) 10^6/uL Hgb (12.0-16.0) g/dL Hct (37.0-47.0) % MCV (81.0-99.0) fL MCH (27.0-31.0) pg MCHC (32.0-36.0) g/dL RDW (12.0-15.0) % Plt Count (130-450) 10^3/uL MPV (7.9-10.8) fL Neut # (Auto) Lymph # (Auto) [place] # (Auto) Eos # (Auto) Baso # (Auto) Absolute Nucleated RBC Total Counted Band Neuts % (Manual) (0 - 10) % Abnorm Lymph % (Manual) % Metamyelocytes % ( - 0) % Nucleated RBC % Neutrophils # (Manual) (1.5-6.6) 10^3/uL Lymphocytes # (Manual) (1.5-3.5) 10^3/uL Monocytes # (Manual) (0.0-1.0) 10^3/uL Eosinophils # (Manual) (0-0.7) 10^3/uL Basophils # (Manual) (0-0.1) 10^3/uL Differential Comment WBC Morphology (NORMAL) Platelet Estimate (NORMAL) Platelet Morphology (NORMAL) RBC Morph Micro Appear (NORMAL) VBG pH 7.324 (7.31-7.41) Ionized Calcium 1.03 L (1.15-1.33) mmol/L Sodium (135-145) mmol/L Potassium (3.5-5.0) mmol/L Chloride (101-111) mmol/L Carbon Dioxide (21-32) mmol/L Anion Gap (6-13) BUN (6-20) mg/dL Creatinine (0.4-1.0) mg/dL Estimated GFR (MDRD) (>89) Glucose (70-100) mg/dL Lactic Acid 1.9 (0.5-2.2) mmol/L Calcium (8.5-10.3) mg/dL Phosphorus (2.5-4.6) mg/dL Magnesium 1.9 (1.7-2.8) mg/dL 06/30/22 Range/Units 18:15 WBC (4.8-10.8) x10^3/uL RBC (4.20-5.40) 10^6/uL Hgb (12.0-16.0) g/dL Hct (37.0-47.0) % MCV (81.0-99.0) fL MCH (27.0-31.0) pg MCHC (32.0-36.0) g/dL RDW (12.0-15.0) % Plt Count (130-450) 10^3/uL MPV (7.9-10.8) fL Neut # (Auto) Lymph # (Auto) [place] # (Auto) Eos # (Auto) Baso # (Auto) Absolute Nucleated RBC Total Counted Band Neuts % (Manual) (0 - 10) % Abnorm Lymph % (Manual) % Metamyelocytes % ( - 0) % Nucleated RBC % Neutrophils # (Manual) (1.5-6.6) 10^3/uL Lymphocytes # (Manual) (1.5-3.5) 10^3/uL Monocytes # (Manual) (0.0-1.0) 10^3/uL Eosinophils # (Manual) (0-0.7) 10^3/uL Basophils # (Manual) (0-0.1) 10^3/uL Differential Comment WBC Morphology (NORMAL) Platelet Estimate (NORMAL) Platelet Morphology (NORMAL) RBC Morph Micro Appear (NORMAL) VBG pH (7.31-7.41) Ionized Calcium YES (1.15-1.33) mmol/L Sodium (135-145) mmol/L Potassium (3.5-5.0) mmol/L Chloride (101-111) mmol/L Carbon Dioxide (21-32) mmol/L Anion Gap (6-13) BUN (6-20) mg/dL Creatinine (0.4-1.0) mg/dL Estimated GFR (MDRD) (>89) Glucose (70-100) mg/dL Lactic Acid (0.5-2.2) mmol/L Calcium 7.2 L (8.5-10.3) mg/dL Phosphorus (2.5-4.6) mg/dL Magnesium (1.7-2.8) mg/dL Sepsis Event Note (H) - Evaluation Current Stage of Sepsis: Severe sepsis Possible source of Sepsis: positive: Skin/soft tissue, Wound - Sepsis Criteria Sepsis Criteria: Recorded Temperature greater than 38.3C or Less than 36C, Recorded Heart Rate greater than 90 bpm, Recorded Respiratory Rate greater than 20, WBC count greater than 10% bands, WBC count greater than 12,000 or less than 4000, Metabolic: lactate > 2 mmol/L Assessment/Plan - Problem List (1) Cellulitis Impression: On Day 2 of this hospitalization, her right knee, lateral aspect became more red and warm. CT of the knee was done and read as probable cellulitis, no loint involvement. Today she is alert and awake and reports that 72 hours after her arthroscopy, when she took off the knee bandages, she noticed 4 scars, and one looked like a punch hole. She had been told there would only be 3 scars therefore she did not know what the punch hole on the lateral right knee was and this later started to leak clear fluid. Then the morning of this admission, she remembers the leakage became purulent. Her blood cultures are negative to date, taken on day apart. There is no leakage from the "punch hole" area currently, but it looks like a pimple with a white head. Plan: Await blood culture results drawn during fever spikes. Continue with ceftriaxone and vancomycin (2) Status post arthroscopic knee surgery Conclusion/Plan: Today is POD #7, surgery was done at a different hospital. Clinically, the knee did not look like the source of the fever when she wpresen soraya to the ED, on POD #5. This was also the impression of her orthopedist after phone description and discussion with the ED provider. Yesterday,the lateral area of the knee became red and warm, which was a new finding. Today the redness is lessened in area, but there is a new "punch hole" that has a "candelaria" pimple in its center. She underwent a CT of the right leg to search for postop complications. There was no finding of abscess or fluid collection related to the joint but Radiology read the CT scan as having cellulitis. Yesterday she was clinically in severe sepsis. She was transferred to the ICU and I broadened her antibiotics, gave fluids aggressively. Plan: Continue iv Tylenol prn, iv Toradol prn and iv Fentanyl prn for pain control, then po meds if tolerated I will try to contact Dr. Oreilly her Orthopedic surgeon, and describe what has happened to her over the past 2 days. She may need a repeat CT to assure there is no joint involvement. (3) Hypokalemia Conclusion/Plan: Likely caused by her vomiting Plan: Will give K riders Follow BMP daily (4) Morbid obesity with body mass index (BMI) of 40.0 to 44.9 in adult Conclusion/Plan: Her BMI is 43. This had made venipuncture very difficult in addition to her being volume contracted. (5) Severe sepsis Impression: Resolved She had a fever, an elevated L.A. was tachycardic and tachypneic yesterday. WBC darlene from normal to 26. Procalcitonin darlene from 10 yesterday to 16 Even on iv fluids, the L.A. darlene 4>> 3.7>> 4.4, before improving. He was moved to the ICU yesterday. A central line needed to be inserted by Anesthesia. Plan: We will decrease her fluids from 300 cc an hour down to 160 cc an hour, then eventually to TKO overnight. Continue to treat the underlying We will discontinue her Phelps Will upgrade her critical condition to stable She can be moved out of the ICU (6) Teteny from hypocalcemia Impression: Resolved Patient had acute hypocalcemia, yesterday Ca dropped down to 7.1 with a normal albumin. This is seen with severe sepsis. She was given several IV calcium gluconate riders over 15-minute infusions until her symptoms resolved. We also needed to correct low magnesium level and phosphorus levels (7) Tachypnea Resolved She started to become tachypneic with her fever and also at that point described new mid back pain, between the shoulder blades, rated 10/10. She could not tell if it was pleuritic. She has never had it before.Concern is that this is PE after undergoing orthopedic surgery and being more immobilized than normal She was transferred to the ICU. ABG was done, did not show acidosis or hypoxemi a. Because of recent immobilization, concern for an acute PE, therefore we started Lovenox 110 mg BID, empirically for a poss PE. She underwent a CTA last night, which did not show a PE nor any thoracic aortic pathology Plan: Will also ordered an Echo to eval chamber sizes and function>> This was done and showed normal chamber sizes, normal LV and RV contractility (8) Bacteriuria Impression: There was no UA done at admission. UA was done after she was placed in Observation and was quite remarkable for elevated nitrates and had moderate white blood cells and moderate bacteria, culture was indicated. The final urine culture grew no bacteria. (9) Nausea, vomiting Resolved The presentation sounded very much like a viral gastroenteritis. She did not have abdominal imaging done in the ED. CT abd/pelvis was done after she was (initially) placed in Observation. The CT was unremarkable. As her sepsis resolved, her nausea and vomiting have improved Plan: We will advance her diet Qualifiers: Site of cellulitis of extremity: lower extremity Laterality: right
[2022-07-01] MEDS: CALCIUM CARBONATE CHEW 500 MG TABLET PO PRN (19:35)
[2022-07-01] MEDS: SODIUM CHLORIDE FLUSH 0.9% 10 ML SYRINGE IVP PRN (19:48)
[2022-07-01] MEDS ORDERED: ZINC OXIDE 20% OINT 30 GM TUBE TOP PRN (20:29)
[2022-07-02] MEDS: SODIUM CHLORIDE FLUSH 0.9% 10 ML SYRINGE IVP SCH ×4 (00:50→19:06)
[2022-07-02] MEDS: SODIUM CHLORIDE FLUSH 0.9% 10 ML SYRINGE IVP PRN ×3 (00:50→19:06)
[2022-07-02] MEDS: VANCOMYCIN INJ 1 GM, VANCOMYCIN INJ 500 MG in SODIUM CHLORIDE 0.9% 500 ML IV SCH ×2 (00:52→13:44)
[2022-07-02] MEDS: ACETAMINOPHEN 1,000 MG/100 ML 1,000 MG/100 ML BAG IV PRN ×2 (00:53→08:08)
[2022-07-02 01:02] LABS: CALCIUM, IONIZED 1.12 mmol/L (1.15-1.33); VBG PH 7.341 (7.31-7.41)
[2022-07-02 01:04] LABS: MAGNESIUM 1.9 mg/dL (1.7-2.8); PHOSPHORUS 1.9 mg/dL (2.5-4.6); POTASSIUM 3.8 mmol/L (3.5-5.0)
[2022-07-02] MEDS: LACTATED RINGERS 1,000 ML IV SCH (01:06)
[2022-07-02] MEDS ORDERED: POTASSIUM CHLOR 20 MEQ/100 ML 20 MEQ/100 ML BAG IV ONE (01:15)
[2022-07-02] MEDS: NEUTRA-PHOS 250 MG TABLET PO SCH ×2 (01:40→03:19)
[2022-07-02 04:02] LABS: CALCIUM, IONIZED 1.11 mmol/L (1.15-1.33); VBG PH 7.338 (7.31-7.41)
[2022-07-02 04:03] LABS: BASOPHILS # (AUTO) 0.1 10^3/uL (0.0-0.1); BASOPHILS % (AUTO) 0.4 %; EOSINOPHILS # (AUTO) 0.8 10^3/uL (0.0-0.7); EOSINOPHILS % (AUTO) 5.3 %; HCT - HEMATOCRIT 32.1 % (37.0-47.0); HGB - HEMOGLOBIN 10.6 g/dL (12.0-16.0); LYMPHOCYTES # (AUTO) 1.6 10^3/uL (1.5-3.5); LYMPHOCYTES % (AUTO) 10.7 %; MEAN CORPUSCULAR HEMOGLOBIN 29.3 pg (27.0-31.0); MEAN CORPUSCULAR VOLUME 88.7 fL (81.0-99.0); MEAN PLATELET VOLUME 10.8 fL (7.9-10.8); MONOCYTES # (AUTO) 0.5 10^3/uL (0.0-1.0); MONOCYTES % (AUTO) 3.4 %; NEUTROPHILS # (AUTO) 11.9 10^3/uL (1.5-6.6); NEUTROPHILS % (AUTO) 79.4 %; PLT - PLATELET COUNT 126 10^3/uL (130-450); RED BLOOD COUNT 3.62 10^6/uL (4.20-5.40); RED CELL DISTRIBUTION WIDTH 14.6 % (12.0-15.0)
[2022-07-02 04:16] LABS: ALBUMIN 2.2 g/dL (3.2-5.5); ALBUMIN/GLOBULIN RATIO 0.9 (1.0-2.2); BILIRUBIN,TOTAL 2.9 mg/dL (0.2-1.0); CALCIUM 7.4 mg/dL (8.5-10.3); CREATININE 0.7 mg/dL (0.4-1.0); MAGNESIUM 1.9 mg/dL (1.7-2.8); PHOSPHORUS 2.1 mg/dL (2.5-4.6); TOTAL PROTEIN 4.7 g/dL (6.7-8.2)
[2022-07-02] MEDS: ONDANSETRON 4 MG/2 ML VIAL IVP PRN (08:08)
[2022-07-02] MEDS: ENOXAPARIN 40 MG/0.4 ML SYRINGE SUBQ SCH (10:06)
[2022-07-02] MEDS: cefTRIAXone 1 GM in SODIUM CHLORIDE 0.9% MINIBAG 100 ML IV SCH (10:06)
[2022-07-02] MEDS: IBUPROFEN 400 MG TABLET PO PRN ×2 (10:29→21:07)
--- NOTE | 2022-07-02 11:38 | PROVIDER PROGRESS NOTE ---
Assessment/Plan - Problem List (1) Cellulitis Qualifiers: Site of cellulitis of extremity: lower extremity Laterality: right Assessment/Plan: On Day 2 of this hospitalization, her right knee, lateral aspect became more red and warm. CT of the knee was done and read as probable cellulitis, no joint involvement. Since yesterday 07/01 she is alert and awake. No fever for 24 hours. She was able to describe events after her knee surgery: 72 hours after her arthroscopy, when she took off the knee bandages, she noticed 4 scars, and one looked like a punch hole. She had been told there would only be 3 scars therefore she did not know what the punch hole on the lateral right knee was and this later started to leak clear fluid. Then the morning of this admission, she remembers the leakage became purulent. Her blood cultures are negative to date, taken one day apart. There is no leakage from the "punch hole" area currently, but it looks like a pimple with a white head. The reddened area around it has diminished even more since Plan: She can be transferred out of the ICU today Await blood culture results drawn during fever spikes. Continue with ceftriaxone and vancomycin I may try to reach her orthopedic surgeon, Dr Oreilly, for any further advice (2) Status post arthroscopic knee surgery Conclusion/Plan: Today is POD #7, surgery was done at a different hospital. Clinically, the knee did not look like the source of the fever when she wpresented to the ED, on POD #5. This was also the impression of her orthopedist after phone description and discussion with the ED provider. Yesterday,the lateral area of the knee became red and warm, which was a new finding. Today the redness is lessened in area, but there is a new "punch hole" that has a "candelaria" pimple in its center. She underwent a CT of the right leg to search for postop complications. There was no finding of abscess or fluid collection related to the joint but Radiology read the CT scan as having cellulitis. Yesterday she was clinically in severe sepsis. She was transferred to the ICU and I broadened her antibiotics, gave fluids aggressively. Plan: Continue iv Tylenol prn, iv Toradol prn and iv Fentanyl prn for pain control, th en po meds if tolerated I will try to contact Dr. Oreilly her Orthopedic surgeon, and describe what has happened to her over the past 2 days. She may need a repeat CT to assure there is no joint involvement. (3) Apnea Conclusion/Plan: This was witnessed by our RN and she desaturated briefly. The reports she snores and has many apneic episodes that he has witnessed. She very likely has obesity-hypoventilation syndrome Plan: She will need an outpatient sleep study (4) Morbid obesity with body mass index (BMI) of 40.0 to 44.9 in adult Conclusion/Plan: Her BMI is 43. This had made venipuncture very difficult in addition to her being volume contracted. (5) Severe sepsis Impression: Resolved She had a fever, an elevated L.A. was tachycardic and tachypneic yesterday. WBC darlene from normal to 26. Procalcitonin darlene from 10 yesterday to 16 Even on iv fluids, the L.A. darlene 4>> 3.7>> 4.4, before improving. He was moved to the ICU yesterday. A central line needed to be inserted by Anesthesia. Plan: We will decrease her fluids from 300 cc an hour down to 160 cc an hour, then eventually to TKO overnight. Continue to treat the underlying We will discontinue her Phelps Will upgrade her critical condition to stable She can be moved out of the ICU (6) Kellyy from hypocalcemia Impression: Resolved Patient had acute hypocalcemia, yesterday Ca dropped down to 7.1 with a normal albumin. This is seen with severe sepsis. She was given several IV calcium gluconate riders over 15-minute infusions until her symptoms resolved. We also needed to correct low magnesium level and phosphorus levels (7) Tachypnea Resolved She started to become tachypneic with her fever and also at that point described new mid back pain, between the shoulder blades, rated 10/10. She could not tell if it was pleuritic. She has never had it before.Concern is that this is PE after undergoing orthopedic surgery and being more immobilized than normal She was transferred to the ICU. ABG was done, did not show acidosis or hypoxe cj. Because of recent immobilization, concern for an acute PE, therefore we started Lovenox 110 mg BID, empirically for a poss PE. She underwent a CTA last night, which did not show a PE nor any thoracic aortic pathology Plan: Will also ordered an Echo to eval chamber sizes and function>> This was done and showed normal chamber sizes, normal LV and RV contractility (8) Bacteriuria Impression: There was no UA done at admission. UA was done after she was placed in Observation and was quite remarkable for elevated nitrates and had moderate white blood cells and moderate bacteria, culture was indicated. The final urine culture grew no bacteria. (9) Nausea, vomiting Resolved The presentation sounded very much like a viral gastroenteritis. She did not have abdominal imaging done in the ED. CT abd/pelvis was done after she was (initially) placed in Observation. The CT was unremarkable. As her sepsis resolved, her nausea and vomiting have improved Plan: We will advance her diet Qualifiers: Site of cellulitis of extremity: lower extremity Laterality: right 4) Hypokalemia Conclusion/Plan: Resolved with K replacement. Likely caused by her vomiting Plan: Follow BMP daily - Current Meds Current Meds: Current Medications Generic Name Dose Route Start Last Admin Trade Name Freq PRN Reason Stop Dose Admin Calcium Carbonate/Glycine 500 mg 07/01/22 18:55 07/01/22 19:35 Calcium Carbonate Chew 500 Mg Tablet PO 500 mg TID PRN Administration INDIGESTION Enoxaparin Sodium 40 mg 07/01/22 09:00 07/02/22 10:06 Enoxaparin 40 Mg/0.4 Ml Syringe SUBQ 40 mg DAILY TERRELL Administration Fentanyl 25 mcg 06/29/22 13:46 06/30/22 02:42 Fentanyl 100 Mcg/2 Ml Vial IVP 25 mcg Q8H PRN Administration Severe Pain Haloperidol 1 mg 06/29/22 16:26 06/30/22 09:27 Haloperidol 5 Mg/Ml Vial IVP 1 mg Q6H PRN Administration Nausea / Vomiting Ceftriaxone Sodium 1 gm/ 100 mls @ 200 mls/hr 06/30/22 09:00 07/02/22 10:06 Sodium Chloride IV 200 mls/hr DAILY TERRELL Administration Vancomycin HCl 1 gm/ 500 mls @ 250 mls/hr 07/01/22 01:00 07/02/22 02:55 Vancomycin HCl 500 mg/ Sodium IV Infused Chloride Q12H TERRELL Infusion Sodium Chloride 1,000 mls @ 60 mls/hr 07/01/22 17:18 07/02/22 06:00 Normal Saline 0.9% IV 60 mls/hr .[id number] TERRELL Infusion Ibuprofen 400 mg 06/29/22 21:08 07/02/22 10:29 Ibuprofen 400 Mg Tablet PO 400 mg Q6HR PRN Administration FEVER > 100.5 F Ketorolac Tromethamine 30 mg 06/29/22 18:43 07/01/22 13:02 Ketorolac 30 Mg/Ml Vial IVP 07/04/22 18:42 30 mg Q6HR PRN Administration Pain or Fever > 38C (100.4F) Metoclopramide HCl 5 mg 06/29/22 16:25 06/30/22 06:04 Metoclopramide 10 Mg/2 Ml Vial IVP 5 mg Q6HR PRN Administration Nausea / Vomiting Ondansetron HCl 4 mg 06/29/22 13:40 07/02/22 08:08 Ondansetron 4 Mg/2 Ml Vial IVP 4 mg Q6HR PRN Administration Nausea / Vomiting Prochlorperazine Edisylate 10 mg 06/29/22 13:40 07/01/22 18:08 Prochlorperazine 10 Mg/2 Ml Vial IVP 10 mg Q6HR PRN Administration Nausea / Vomiting Sodium Chloride 10 ml 06/29/22 13:40 07/02/22 08:11 Sodium Chloride Flush 0.9% 10 Ml Syringe IVP 10 ml PRN PRN Administration NEEDED PER PROVIDER ORDERS Sodium Chloride 10 ml 06/29/22 17:00 07/02/22 09:57 Sodium Chloride Flush 0.9% 10 Ml Syringe IVP 10 ml 0100,0900,1700 TERRELL Administration Sodium Chloride 20 ml 07/01/22 20:29 07/02/22 00:50 Sodium Chloride Flush 0.9% 10 Ml Syringe IVP 20 ml PRN PRN Administration After Blood Draw - Lab Result Fish Bone Diagrams: 07/02/22 03:30 07/02/22 03:30 - Additional Planning My Orders: My Active Orders 07/01/22 17:18 Sodium Chloride 0.9% [Normal Saline 0.9%] 1,000 ml IV 60 mls/hr 07/01/22 18:55 Calcium Carbonate [Tums] 500 mg PO TID PRN 07/01/22 20:29 Sodium Chloride Flush 0.9% [Normal Saline Flush 0.9%] 20 ml IVP PRN PRN Zinc Oxide 20% Oint [Zinc Oxide] 1 applic TOP PRN PRN 07/02/22 Evaluate and Treat PT [PT] Routine 07/02/22 09:13 Telemetry-Discontinue [RC] .ONCE Transfer [Admit \\ Transfer \\ Status] [RC] .ONCE 07/02/22 10:59 Acetaminophen [Tylenol] 650 mg PO Q4HR PRN 07/02/22 Lunch DIET [Soft (Low Fiber) Diet] [DIET] 07/02/22 12:00 VANCOMYCIN TROUGH [CHEM] Timed 07/03/22 05:00 BMP - BASIC METABOLIC PANEL [CHEM] DAILYLAB CALCIUM, IONIZED ([facility]) [BG] DAILYLAB CBC - COMP BLD CT W/AUTO DIFF [HEME] DAILYLAB MAGNESIUM [CHEM] DAILYLAB PHOSPHORUS [CHEM] DAILYLAB 07/04/22 05:00 BMP - BASIC METABOLIC PANEL [CHEM] DAILYLAB CBC - COMP BLD CT W/AUTO DIFF [HEME] DAILYLAB 07/05/22 05:00 BMP - BASIC METABOLIC PANEL [CHEM] DAILYLAB 07/06/22 05:00 BMP - BASIC METABOLIC PANEL [CHEM] DAILYLAB Subjective - Subjective Patient Reports: Feeling Better (No appetite but not nauseated, was able to eat several spoonfuls of cream of wheat for breakfast) Nursing Reports: Other (RN reported that reported that she is apneic when sleeps, hears snoring. Her O2 sats dropped to under 90% when apnea was seen here.) Objective Vital Signs: Vital Signs - 24 hr 07/01/22 07/01/22 07/01/22 12:00 13:00 14:00 Temperature 38.2 C H 38.4 C H Heart Rate [ 122 H 125 H 114 H Monitoring electrodes] Respiratory 23 24 20 Rate Blood Pressure [Left Brachial artery] Blood Pressure 127/76 132/95 H 120/83 H [Right Brachial artery] O2 Saturation 98 98 97 If not protocol : Oxygen Flow, liters/minute 07/01/22 07/01/22 07/01/22 15:00 16:00 17:00 Temperature 37.8 C 37.6 C 37.3 C Heart Rate [ 112 H 112 H 112 H Monitoring electrodes] Respiratory 20 24 18 Rate Blood Pressure [Left Brachial artery] Blood Pressure 121/79 117/83 H 120/81 H [Right Brachial artery] O2 Saturation 97 99 97 If not protocol : Oxygen Flow, liters/minute 07/01/22 07/01/22 07/01/22 19:00 21:00 22:07 Temperature 32.2 C L 37.4 C 37.5 C Heart Rate [ 102 H 96 99 Monitoring electrodes] Respiratory 20 16 16 Rate Blood Pressure [Left Brachial artery] Blood Pressure 129/88 H 134/85 H 126/69 [Right Brachial artery] O2 Saturation 98 99 99 If not protocol : Oxygen Flow, liters/minute 07/01/22 07/02/22 07/02/22 23:00 00:35 01:00 Temperature 37.5 C 37.4 C Heart Rate [ 105 H 91 Monitoring electrodes] Respiratory 18 16 16 Rate Blood Pressure 133/77 H 113/78 [Left Brachial artery] Blood Pressure [Right Brachial artery] O2 Saturation 97 99 100 If not protocol 2 2 : Oxygen Flow, liters/minute 07/02/22 07/02/22 07/02/22 03:00 05:00 07:00 Temperature 37.3 C 37.1 C Heart Rate [ 92 97 92 Monitoring electrodes] Respiratory 16 19 16 Rate Blood Pressure 110/75 132/88 H 127/83 H [Left Brachial artery] Blood Pressure [Right Brachial artery] O2 Saturation 100 97 97 If not protocol 2 2 2 : Oxygen Flow, liters/minute 07/02/22 08:22 Temperature 36.5 C Heart Rate [ 104 H Monitoring electrodes] Respiratory 21 Rate Blood Pressure 130/92 H [Left Brachial artery] Blood Pressure [Right Brachial artery] O2 Saturation 98 If not protocol : Oxygen Flow, liters/minute Oxygen O2 Source Room air I&O (Last 24 Hrs): Intake and Output Totals x24h 06/30/22 07/01/22 07/02/22 23:59 23:59 23:59 Intake Total 6167.583 9854.992 1689.882 Output Total 995 2460 890 Balance 5172.583 7394.992 799.882 General: Alert, Oriented x3, Other (Obese) HEENT: Mucous membr. moist/pink Neck: Supple Neuro: Alert, Non Focal Cardiovascular: Regular rate, No murmurs Respiratory: No respiratory distress, Breath sounds nml Abdomen: Normal bowel sounds, Soft, Other (obese) Extremities: No clubbing, Other (R knee less red, has white-head lesion lateral R knee) - Results Results: Laboratory Results WBC 15.0 x10^3/uL (4.8-10.8) H 07/02/22 03:30 RBC 3.62 10^6/uL (4.20-5.40) L 07/02/22 03:30 Hgb 10.6 g/dL (12.0-16.0) L 07/02/22 03:30 Hct 32.1 % (37.0-47.0) L 07/02/22 03:30 MCV 88.7 fL (81.0-99.0) 07/02/22 03:30 MCH 29.3 pg (27.0-31.0) 07/02/22 03:30 MCHC 33.0 g/dL (32.0-36.0) 07/02/22 03:30 RDW 14.6 % (12.0-15.0) 07/02/22 03:30 Plt Count 126 10^3/uL (130-450) L 07/02/22 03:30 MPV 10.8 fL (7.9-10.8) 07/02/22 03:30 Neut # (Auto) 11.9 10^3/uL (1.5-6.6) H 07/02/22 03:30 Lymph # (Auto) 1.6 10^3/uL (1.5-3.5) 07/02/22 03:30 [place] # (Auto) 0.5 10^3/uL (0.0-1.0) 07/02/22 03:30 Eos # (Auto) 0.8 10^3/uL (0.0-0.7) H 07/02/22 03:30 Baso # (Auto) 0.1 10^3/uL (0.0-0.1) 07/02/22 03:30 Absolute Nucleated RBC 0.00 x10^3/uL 07/02/22 03:30 Total Counted 100 07/01/22 04:25 Band Neuts % (Manual) 7 % (0-10) 07/01/22 04:25 Abnorm Lymph % (Manual) 0 % 07/01/22 04:25 Metamyelocytes % 2 % (-0) H 07/01/22 04:25 Nucleated RBC % 0.0 /100WBC 07/02/22 03:30 Neutrophils # (Manual) 15.1 10^3/uL (1.5-6.6) H 07/01/22 04:25 Lymphocytes # (Manual) 0.2 10^3/uL (1.5-3.5) L 07/01/22 04:25 Monocytes # (Manual) 0.5 10^3/uL (0.0-1.0) 07/01/22 04:25 Eosinophils # (Manual) 0.5 10^3/uL (0-0.7) 07/01/22 04:25 Basophils # (Manual) 0.2 10^3/uL (0-0.1) H 07/01/22 04:25 Differential Comment MANUAL DIFFERENTIAL 07/01/22 04:25 WBC Morphology NORMAL APPEARANCE (NORMAL) 07/01/22 04:25 Platelet Estimate NORMAL (130-450,000) (NORMAL) 07/01/22 04:25 Platelet Morphology NORMAL APPEARANCE (NORMAL) 07/01/22 04:25 RBC Morph Micro Appear NORMAL APPEARANCE (NORMAL) 07/01/22 04:25 Bld Gas Analysis Time 1251 06/30/22 12:45 Sample Site LEFT RADIAL 06/30/22 12:45 ABG pH 7.46 (7.35-7.45) H 06/30/22 12:45 ABG pCO2 20 mmHg (34-45) L* 06/30/22 12:45 ABG pO2 72 mmHg (80-100) L 06/30/22 12:45 ABG HCO3 14.1 mmol/L (22.0-26.0) L 06/30/22 12:45 ABG Total CO2 14.8 MMOL/L (21.0-29.0) L 06/30/22 12:45 ABG O2 Saturation 96 % (94-98) 06/30/22 12:45 ABG Base Excess -7.3 mmol/L (-2.0-3.0) L 06/30/22 12:45 Joe Test POSITIVE 06/30/22 12:45 VBG pH 7.338 (7.31-7.41) 07/02/22 03:30 Ionized Calcium 1.11 mmol/L (1.15-1.33) L 07/02/22 03:30 Room Air YES 06/30/22 12:45 Sodium 136 mmol/L (135-145) 07/02/22 03:30 Potassium 4.0 mmol/L (3.5-5.0) 07/02/22 03:30 Chloride 109 mmol/L (101-111) 07/02/22 03:30 Carbon Dioxide 20 mmol/L (21-32) L 07/02/22 03:30 Anion Gap 7.0 (6-13) 07/02/22 03:30 BUN 8 mg/dL (6-20) 07/02/22 03:30 Creatinine 0.7 mg/dL (0.4-1.0) 07/02/22 03:30 Estimated GFR (MDRD) 98 (>89) 07/02/22 03:30 Glucose 93 mg/dL (70-100) 07/02/22 03:30 Lactic Acid 1.9 mmol/L (0.5-2.2) 06/30/22 18:40 Calcium 7.4 mg/dL (8.5-10.3) L 07/02/22 03:30 Ionized Calcium YES 06/30/22 18:15 Phosphorus 1.7 mg/dL (2.5-4.6) L 07/02/22 10:01 Magnesium 1.9 mg/dL (1.7-2.8) 07/02/22 03:30 Total Bilirubin 2.9 mg/dL (0.2-1.0) H 07/02/22 03:30 AST 31 IU/L (10-42) 07/02/22 03:30 ALT 35 IU/L (10-60) 07/02/22 03:30 Alkaline Phosphatase 75 IU/L (42-121) 07/02/22 03:30 Troponin I High Sens 4.6 ng/L (2.3-14.8) 06/29/22 23:34 C-Reactive Protein 3.0 mg/dL (0-1.0) H 06/29/22 08:52 Total Protein 4.7 g/dL (6.7-8.2) L 07/02/22 03:30 Albumin 2.2 g/dL (3.2-5.5) L 07/02/22 03:30 Globulin 2.5 g/dL (2.1-4.2) 07/02/22 03:30 Albumin/Globulin Ratio 0.9 (1.0-2.2) L 07/02/22 03:30 Lipase 28 U/L (22-51) 06/29/22 08:52 Procalcitonin 16.16 ng/mL (<0.5) H* 06/30/22 07:17 Urine Color DARK YELLOW 06/29/22 16:20 Urine Clarity HAZY (CLEAR) 06/29/22 16:20 Urine pH 5.5 PH (5.0-7.5) 06/29/22 16:20 Ur Specific [place] 1.025 (1.002-1.030) 06/29/22 16:20 Urine Protein TRACE mg/dL (NEGATIVE) 06/29/22 16:20 Urine Glucose (UA) NEGATIVE mg/dL (NEGATIVE) 06/29/22 16:20 Urine Ketones TRACE mg/dL (NEGATIVE) 06/29/22 16:20 Urine Occult Blood NEGATIVE (NEGATIVE) 06/29/22 16:20 Urine Nitrite POSITIVE (NEGATIVE) H 06/29/22 16:20 Urine Bilirubin MODERATE (NEGATIVE) H 06/29/22 16:20 Urine Urobilinogen 1 (NORMAL) E.U./dL (NORMAL) 06/29/22 16:20 Ur Leukocyte Esterase NEGATIVE (NEGATIVE) 06/29/22 16:20 Urine RBC 0-5 /HPF (0-5) 06/29/22 16:20 Urine WBC 0-3 /HPF (0-5) 06/29/22 16:20 Ur Squamous Epith Cells FEW Squamous (<= Few) 06/29/22 16:20 Urine Bacteria Moderate /HPF (None Seen) H 06/29/22 16:20 Urine Mucus Moderate Strands 06/29/22 16:20 Ur Microscopic Review INDICATED 06/29/22 16:20 Urine Culture Comments INDICATED 06/29/22 16:20 Urine HCG, Qual NEGATIVE 06/29/22 16:20 Nasal Adenovirus (PCR) NOT DETECTED 06/29/22 09:05 Nasal B. parapertussis DNA (PCR) NOT DETECTED 06/29/22 09:05 Nasal Coronavir 229E PCR NOT DETECTED 06/29/22 09:05 Nasal Coronavir HKU1 PCR NOT DETECTED 06/29/22 09:05 Nasal Coronavir NL63 PCR NOT DETECTED 06/29/22 09:05 Nasal Coronavir OC43 PCR NOT DETECTED 06/29/22 09:05 Nasal Enterovir/Rhinovir PCR NOT DETECTED 06/29/22 09:05 Nasal Influenza B PCR NOT DETECTED 06/29/22 09:05 Nasal Influenza A PCR NOT DETECTED 06/29/22 09:05 Nasal Parainfluen 1 PCR NOT DETECTED 06/29/22 09:05 Nasal Parainfluen 2 PCR NOT DETECTED 06/29/22 09:05 Nasal Parainfluen 3 PCR NOT DETECTED 06/29/22 09:05 Nasal Parainfluen 4 PCR NOT DETECTED 06/29/22 09:05 Nasal RSV (PCR) NOT DETECTED 06/29/22 09:05 Nasal Screen MRSA (PCR) NEGATIVE (NEGATIVE) 06/30/22 12:25 Nasal B.pertussis DNA PCR NOT DETECTED 06/29/22 09:05 Nasal C.pneumoniae (PCR) NOT DETECTED 06/29/22 09:05 Ronnie Human Metapneumo PCR NOT DETECTED 06/29/22 09:05 Nasal M.pneumoniae (PCR) NOT DETECTED 06/29/22 09:05 Nasal SARS-CoV-2 (PCR) NOT DETECTED 06/29/22 09:05 Stl C. diff Tox B Gene NEGATIVE (NEGATIVE) 06/29/22 19:32 Sepsis Event Note (H) - Evaluation Current Stage of Sepsis: Severe sepsis Possible source of Sepsis: positive: Skin/soft tissue, Wound - Sepsis Criteria Sepsis Criteria: Recorded Temperature greater than 38.3C or Less than 36C, Recorded Heart Rate greater than 90 bpm, Recorded Respiratory Rate greater than 20, WBC count greater than 10% bands, WBC count greater than 12,000 or less than 4000, Metabolic: lactate > 2 mmol/L
[2022-07-02 12:57] LABS: VANCOMYCIN,TROUGH 10.4 ug/mL (10.0-20.0)
[2022-07-02] MEDS: SODIUM CHLORIDE 0.9% 1,000 ML IV SCH (13:00)
[2022-07-02] MEDS: ACETAMINOPHEN 325 MG TABLET PO PRN ×2 (13:18→19:41)
[2022-07-02] MEDS: CALCIUM CARBONATE CHEW 500 MG TABLET PO PRN (13:56)
--- NOTE | 2022-07-02 19:03 | PHARMACY PROGRESS NOTE ---
- Therapy Status Vancomycin regimen day #: 3 Therapy status: Trough therapeutic Basis for treatment: Empirical Treatment indication: Cellulitis Trough goal: 10-15 - SANDEEP Risk Risk level for Acute Kidney Injury: Low Acute Kidney Injury risk factors: Wt >100kg or BMI >40 - Monitoring and Recommendation Clinical response to treatment: I&O Previous 24 hours 06/30/22 07/01/22 07/02/22 23:59 23:59 23:59 Intake Total 6167.583 9854.992 2169.882 Output Total 995 2460 890 Balance 5172.583 7394.992 1279.882 Lab Results 07/02/22 07/01/22 06/30/22 03:30 04:25 12:57 BUN 8 10 14 Creatinine 0.7 0.6 0.9 Estimated GFR (MDRD) 98 117 74 L 06/30/22 06/29/22 07:17 08:52 BUN 13 9 Creatinine 0.9 0.8 Estimated GFR (MDRD) 74 L 84 L Vancomycin Monitoring 07/02/22 12:15 Vancomycin Trough 10.4 Cultures 06/29/22 19:32 Stool Salmonella/Shigella Screen - Preliminary 06/29/22 19:32 Stool Stool Culture Result 1 - Preliminary 06/29/22 19:32 Stool Campylobacter Culture - Pending 06/29/22 19:32 Stool Campylobacter Result 1 - Pending 06/29/22 19:32 Stool Escherichia coli Shiga Toxins EIA - Final 06/30/22 12:53 Blood - Central Line Blood Culture - Preliminary NO GROWTH AFTER 2 DAYS 06/30/22 11:42 Blood - Central Line Blood Culture - Preliminary NO GROWTH AFTER 2 DAYS 06/29/22 09:15 Blood Blood Culture - Preliminary NO GROWTH AFTER 2 DAYS 06/29/22 08:52 Blood Blood Culture - Preliminary NO GROWTH AFTER 2 DAYS 06/29/22 16:20 Urine,Clean Catch Urine Culture - Final No growth Monitoring plan: Daily serum creatinine Areas for additional monitoring: IV to PO when appropriate, Therapy de- escalation based on culture results
[2022-07-03] MEDS: ACETAMINOPHEN 325 MG TABLET PO PRN ×5 (00:27→17:55)
[2022-07-03] MEDS: SODIUM CHLORIDE FLUSH 0.9% 10 ML SYRINGE IVP PRN ×6 (00:30→13:54)
[2022-07-03] MEDS: SODIUM CHLORIDE FLUSH 0.9% 10 ML SYRINGE IVP SCH ×3 (01:27→16:43)
[2022-07-03] MEDS: VANCOMYCIN INJ 1 GM, VANCOMYCIN INJ 500 MG in SODIUM CHLORIDE 0.9% 500 ML IV SCH ×2 (01:28→14:17)
[2022-07-03] MEDS: IBUPROFEN 400 MG TABLET PO PRN ×3 (04:05→19:03)
[2022-07-03 05:39] LABS: BASOPHILS % (AUTO) 0.6 %; CALCIUM, IONIZED 1.09 mmol/L (1.15-1.33); EOSINOPHILS % (AUTO) 5.1 %; HCT - HEMATOCRIT 30.5 % (37.0-47.0); LYMPHOCYTES % (AUTO) 22.5 %; MEAN CORPUSCULAR HEMOGLOBIN 29.3 pg (27.0-31.0); MEAN CORPUSCULAR HGB CONC 32.8 g/dL (32.0-36.0); MEAN CORPUSCULAR VOLUME 89.4 fL (81.0-99.0); MEAN PLATELET VOLUME 10.2 fL (7.9-10.8); MONOCYTES % (AUTO) 5.1 %; NEUTROPHILS % (AUTO) 61.4 %; PLT - PLATELET COUNT 140 10^3/uL (130-450); RED BLOOD COUNT 3.41 10^6/uL (4.20-5.40); RED CELL DISTRIBUTION WIDTH 14.9 % (12.0-15.0); VBG PH 7.379 (7.31-7.41); WHITE BLOOD COUNT 16.2 x10^3/uL (4.8-10.8)
[2022-07-03 05:47] LABS: ABNORMAL LYMPHS % (MANUAL) 0 %
[2022-07-03 05:52] LABS: CALCIUM 7.3 mg/dL (8.5-10.3); CREATININE 0.7 mg/dL (0.4-1.0); MAGNESIUM 1.5 mg/dL (1.7-2.8); PHOSPHORUS 1.9 mg/dL (2.5-4.6); POTASSIUM 3.2 mmol/L (3.5-5.0)
[2022-07-03 06:27] LABS: BAND NEUTROPHILS % (MANUAL) 8 %; DIFFERENTIAL COMMENT MANUAL DIFFERENTIAL; EOSINOPHILS # (MANUAL) 1.5 10^3/uL (0-0.7); LYMPHOCYTES # (MANUAL) 5.8 10^3/uL (1.5-3.5); LYMPHOCYTES % (MANUAL) 36 %; METAMYELOCYTES % (MANUAL) 5 %; MONOCYTES # (MANUAL) 0.3 10^3/uL (0.0-1.0); MYELOCYTES % (MANUAL) 5 %; PLATELET ESTIMATE, MANUAL NORMAL (130-450,000) (NORMAL); RBC MORPHOLOGY (MULTIPLE) NORMAL APPEARANCE (NORMAL)
[2022-07-03] MEDS: SODIUM CHLORIDE 0.9% 1,000 ML IV SCH (07:01)
[2022-07-03] MEDS: ENOXAPARIN 40 MG/0.4 ML SYRINGE SUBQ SCH (09:29)
[2022-07-03] MEDS: cefTRIAXone 1 GM in SODIUM CHLORIDE 0.9% MINIBAG 100 ML IV SCH (09:30)
[2022-07-03] MEDS ORDERED: POTASSIUM CHLOR 10 MEQ/100 ML 10 MEQ/100 ML BAG IV SCH (10:00)
[2022-07-03] MEDS: POTASSIUM PHOSPHATE 15 MMOL in SODIUM CHLORIDE 0.9% 250 ML IV SCH ×2 (10:32→16:42)
[2022-07-03] MEDS: ONDANSETRON 4 MG/2 ML VIAL IVP PRN (12:15)
--- NOTE | 2022-07-03 13:32 | MRI Report ---
PROCEDURE: KNEE WO - RT INDICATIONS: Cellulitis R knee S/P arthosc surg, rising WBC TECHNIQUE: Noncontrast sagittal PD fast spin echo and T2 fast spin echo with fat saturation, sagittal 3-D gradie nt sequence with fat saturation; coronal T1 spin echo and PD fast spin echo with fat saturation, and axial PD fast spin echo with fat saturation through the knee. COMPARISON: CT of right knee dated 06/30/2022. FINDINGS: Image quality: Excellent. Menisci: The medial and lateral menisci demonstrate normal morphology and internal signal. The meni scal root ligaments appear intact. Cruciate ligaments: The anterior and posterior cruciate ligaments appear intact. Medial structures: The medial collateral ligament appears thickened proximally at its femoral insert ion. The posterior oblique ligament, semimembranosus tendon insertions, and oblique popliteal ligamen t, and meniscocapsular junction appear intact. Visualized portions of the pes anserinus tendons appe ar normal. No abnormal bursal fluid. Lateral structures: The lateral collateral ligament, long and short heads of the biceps femoris tend on appear intact. The popliteus tendon appears normal; the popliteofibular ligament appears intact. Iliotibial band appears normal. Anterior structures: The quadriceps and patellar tendons appear intact. Slight lateral subluxation o f patella is seen. Postsurgical changes are noted involving medial patellofemoral ligament with thick ened ligament at its patella and femoral insertions. No femoral trochlear dysplasia or ventral trochl ear prominence. No edema in the infrapatellar fat pad. Bones and cartilage: Postsurgical changes are noted in medial femoral condyle and patella. No gross m arrow edema. No fracture or dislocation. No bony erosive changes are seen. The cartilage of the media l and lateral femorotibial compartments, as well as the patellofemoral compartment, appears normal in thickness. Joint space: Diffuse soft tissue swelling and edema surrounding right knee is noted with small amount of deep soft tissue fluid along lower leg muscle fascial plane. No discrete drainable fluid collecti on is identified.. There is moderate amount of joint fluid, no gross loose bodies. There is a tiny Ba ker's cyst. Normal appearing synovial plicae are incidentally noted. IMPRESSION: 1. Postsurgical changes from surgical repair of medial patellofemoral ligament. Slight lateral sublux ation of patella. No acute fracture or dislocation. No evidence of osteomyelitis. Articulating cartil ages are intact. 2. Suggestion of extensive cellulitis around right knee. No discrete drainable fluid collection. Mode rate right knee joint effusion. Tiny Smith's cyst. 3. Thickened patellofemoral ligament as above likely represent postsurgical changes. Thickened the pr oximal MCL likely represent post surgical changes. 4. Cruciate ligaments are intact. No evidence of focal meniscal tear. Reviewed by: Leonard Mujica MD on 07/03/2022 1:31 PM PST Approved by: Leonard Mujica MD on 07/03/2022 1:31 PM PST Station ID: [id number]
--- NOTE | 2022-07-03 19:44 | PROVIDER PROGRESS NOTE ---
Assessment/Plan - Problem List (1) Cellulitis Qualifiers: Site of cellulitis of extremity: lower extremity Laterality: right Assessment/Plan: On Day 2 of this hospitalization, her right knee, lateral aspect became more red and warm. CT of the knee was done and read as probable cellulitis, no joint involvement. After antibiotics were broadened, she became alert and awake. No fever now for over 24 hours. She was able to describe events that occurred after her knee surgery: 72 hours after her arthroscopy, when she took off the knee bandages, she noticed 4 scars, and one looked like a punch hole. She had been told there would only be 3 scars therefore she did not know what the punch hole on the lateral right knee was and this later started to leak clear fluid. Then the morning of this admission, she remembers the leakage became purulent. Her blood cultures are negative to date, taken one day apart. There is leakage from the "punch hole" area where it looked like a pimple with a white head. The reddened area around it has diminished even more since. White blood count and left shift have worsened today Plan: We will obtain MRI of the right knee for better visualization and concerned that there is an abscess under the skin and possibly in the joint Await blood culture results drawn during fever spikes. Continue with ceftriaxone and vancomycin I may try to reach her orthopedic surgeon, Dr Oreilly, for any further advice (2) Status post arthroscopic knee surgery Conclusion/Plan: This surgery was done at a different hospital. Clinically, the knee did not look like the source of the fever when she presented to the ED, on POD #5. This was also the impression of her orthopedist after phone description and discussion with the ED provider. On Day 2 here,the area of the lateral knee became red and warm, which was a new finding. After starting antibx for cellulitis, the redness has lessened in area, but we see a new "punch hole" that has a "candelaria" pimple in its center. Today that is draining Plan: We will obtain MRI of the right knee Continue antibiotics,Tylenol prn, iv Toradol prn and iv Fentanyl prn for pain control, then po meds if tolerated I will try to contact Dr. Oreilly her Orthopedic surgeon, and describe what has happened to her over the past several days. (3) Apnea Conclusion/Plan: This was witnessed by our RN when she was in the ICU and she desaturated briefly. The reports she snores and has many apneic episodes that he has witnessed. She very likely has obesity-hypoventilation syndrome Plan: She will need an outpatient sleep study. I discussed this with the patient and her today as well as mother Jannette. The patient says she already has had a plan to request a sleep study from her PCP. (4) Morbid obesity with body mass index (BMI) of 40.0 to 44.9 in adult Conclusion/Plan: Her BMI is 43. This had made venipuncture very difficult in addition to her being volume contracted. (5) Severe sepsis Impression: Resolved She had a fever, an elevated L.A. was tachycardic and tachypneic yesterday. WBC darlene from normal to 26. Procalcitonin darlene from 10 yesterday to 16 Even on iv fluids, the L.A. darlene 4>> 3.7>> 4.4, before improving. He was moved to the ICU. A central line needed to be inserted by Anesthesia. nShe received greater than 30 cc/kg IV fluids for a day, this was tapered down, her LA improved, discontinued her Phelps, we upgraded her critical condition to stable and she was moved out of the ICU (6) [place]y from hypocalcemia Impression: Resolved Patient had acute hypocalcemia, Ca dropped down to 7.1 with a normal albumin. This is seen with severe sepsis. She was given several IV calcium gluconate riders over 15-minute infusions until her symptoms resolved. We also needed to correct low magnesium level and phosphorus levels (7) Tachypnea Resolved She started to become tachypneic with her fever and also at that point described new mid back pain, between the shoulder blades, rated 10/10. She could not tell if it was pleuritic. She has never had it before.Concern is that this is PE after undergoing orthopedic surgery and being more immobilized than normal She was transferred to the ICU. ABG was done, did not show acidosis or hypoxemia. Because of recent immobilization, concern for an acute PE, therefore we started Lovenox 110 mg BID, empirically for a poss PE. She underwent a CTA later that night, which did not show a PE nor any thoracic aortic pathology. BID Lovenox was stopped. We got an Echo to eval chamber sizes and function. This showed normal chamber sizes, normal LV and RV contractility (8) Bacteriuria Impression: There was no UA done at admission. UA was done after she was placed in Observation and was quite remarkable for elevated nitrates and had moderate white blood cells and moderate bacteria, culture was indicated. We initially thought that a UTI was the cause of her sepsis, and started Ceftiaxone. The final urine culture grew no bacteria. (9) Nausea, vomiting Resolved The presentation sounded very much like a viral gastroenteritis. She did not have abdominal imaging done in the ED. CT abd/pelvis was done after she was (initially) placed in Observation. The CT was unremarkable. As her sepsis resolved, her nausea and vomiting have improved. Has been able to report that she gets nausea and vomiting whenever she has pain, whenever there is a change in her clinical status, it even happened when her Ortho pod was moving her patella, which caused pain. Qualifiers: Site of cellulitis of extremity: lower extremity Laterality: right 10) Hypokalemia Conclusion/Plan: Resolved with K replacement. Likely caused by her vomiting Plan: Follow BMP daily - Current Meds Current Meds: Current Medications Generic Name Dose Route Start Last Admin Trade Name Freq PRN Reason Stop Dose Admin Acetaminophen 650 mg 07/02/22 10:59 07/03/22 17:55 Acetaminophen 325 Mg Tablet PO 650 mg Q4HR PRN Administration Pain or Fever > 38C (100.4F) Calcium Carbonate/Glycine 500 mg 07/01/22 18:55 07/02/22 13:56 Calcium Carbonate Chew 500 Mg Tablet PO 500 mg TID PRN Administration INDIGESTION Enoxaparin Sodium 40 mg 07/01/22 09:00 07/03/22 09:29 Enoxaparin 40 Mg/0.4 Ml Syringe SUBQ 40 mg DAILY TERRELL Administration Fentanyl 25 mcg 06/29/22 13:46 06/30/22 02:42 Fentanyl 100 Mcg/2 Ml Vial IVP 25 mcg Q8H PRN Administration Severe Pain Haloperidol 1 mg 06/29/22 16:26 06/30/22 09:27 Haloperidol 5 Mg/Ml Vial IVP 1 mg Q6H PRN Administration Nausea / Vomiting Ceftriaxone Sodium 1 gm/ 100 mls @ 200 mls/hr 06/30/22 09:00 07/03/22 10:00 Sodium Chloride IV Infused DAILY TERRELL Infusion Vancomycin HCl 1 gm/ 500 mls @ 250 mls/hr 07/01/22 01:00 07/03/22 16:30 Vancomycin HCl 500 mg/ Sodium IV Infused Chloride Q12H TERRELL Infusion Sodium Chloride 1,000 mls @ 60 mls/hr 07/01/22 17:18 07/03/22 14:55 Normal Saline 0.9% IV 60 mls/hr .[id number] TERRELL Infusion Ibuprofen 400 mg 06/29/22 21:08 07/03/22 19:03 Ibuprofen 400 Mg Tablet PO 400 mg Q6HR PRN Administration FEVER > 100.5 F Ketorolac Tromethamine 30 mg 06/29/22 18:43 07/01/22 13:02 Ketorolac 30 Mg/Ml Vial IVP 07/04/22 18:42 30 mg Q6HR PRN Administration Pain or Fever > 38C (100.4F) Metoclopramide HCl 5 mg 06/29/22 16:25 06/30/22 06:04 Metoclopramide 10 Mg/2 Ml Vial IVP 5 mg Q6HR PRN Administration Nausea / Vomiting Ondansetron HCl 4 mg 06/29/22 13:40 07/03/22 12:15 Ondansetron 4 Mg/2 Ml Vial IVP 4 mg Q6HR PRN Administration Nausea / Vomiting Prochlorperazine Edisylate 10 mg 06/29/22 13:40 07/01/22 18:08 Prochlorperazine 10 Mg/2 Ml Vial IVP 10 mg Q6HR PRN Administration Nausea / Vomiting Sodium Chloride 10 ml 06/29/22 13:40 07/03/22 13:54 Sodium Chloride Flush 0.9% 10 Ml Syringe IVP 10 ml PRN PRN Administration NEEDED PER PROVIDER ORDERS Sodium Chloride 10 ml 06/29/22 17:00 07/03/22 16:43 Sodium Chloride Flush 0.9% 10 Ml Syringe IVP 10 ml 0100,0900,1700 TERRELL Administration Sodium Chloride 20 ml 07/01/22 20:29 07/03/22 10:38 Sodium Chloride Flush 0.9% 10 Ml Syringe IVP 20 ml PRN PRN Administration After Blood Draw - Lab Result Fish Bone Diagrams: 07/03/22 05:24 07/03/22 05:24 - Additional Planning My Orders: My Active Orders 07/03/22 18:00 CUL,WOUND (AEROBIC) [RM] Stat 07/04/22 05:00 BMP - BASIC METABOLIC PANEL [CHEM] DAILYLAB CBC - COMP BLD CT W/AUTO DIFF [HEME] DAILYLAB 07/05/22 05:00 BMP - BASIC METABOLIC PANEL [CHEM] DAILYLAB 07/06/22 05:00 BMP - BASIC METABOLIC PANEL [CHEM] DAILYLAB Subjective - Subjective Patient Reports: Feeling Better, Resting Comfortably Objective Vital Signs: Vital Signs - 24 hr 07/03/22 07/03/22 07/03/22 00:15 00:25 14:00 Temperature 36.7 C 36.3 C L Heart Rate [ 103 H Brachial] Heart Rate [ 89 93 Radial] Respiratory 18 19 Rate Blood Pressure 136/83 H 135/75 H [Right Brachial artery] O2 Saturation 95 99 07/03/22 15:41 Temperature 36.9 C Heart Rate [ 94 Brachial] Heart Rate [ Radial] Respiratory 18 Rate Blood Pressure 130/84 H [Right Brachial artery] O2 Saturation 96 Oxygen O2 Source Room air I&O (Last 24 Hrs): Intake and Output Totals x24h 07/01/22 07/02/22 07/03/22 23:59 23:59 23:59 Intake Total 9854.992 2769.882 3795.0 Output Total 2460 890 Balance 7394.992 9082.150 7999.0 General: Alert, Oriented x3, Other (Disheveled) HEENT: Atraumatic, Mucous membr. moist/pink Neck: Supple Neuro: Alert, Non Focal Cardiovascular: Regular rate, No murmurs Respiratory: No respiratory distress Abdomen: Soft, Other (Obese) Extremities: Other (Nearly no redness of the lateral right knee, the central area with a "candelaria" is possibly dry) - Results Results: Laboratory Results WBC 16.2 x10^3/uL (4.8-10.8) H 07/03/22 05:24 RBC 3.41 10^6/uL (4.20-5.40) L 07/03/22 05:24 Hgb 10.0 g/dL (12.0-16.0) L 07/03/22 05:24 Hct 30.5 % (37.0-47.0) L 07/03/22 05:24 MCV 89.4 fL (81.0-99.0) 07/03/22 05:24 MCH 29.3 pg (27.0-31.0) 07/03/22 05:24 MCHC 32.8 g/dL (32.0-36.0) 07/03/22 05:24 RDW 14.9 % (12.0-15.0) 07/03/22 05:24 Plt Count 140 10^3/uL (130-450) 07/03/22 05:24 MPV 10.2 fL (7.9-10.8) 07/03/22 05:24 Neut # (Auto) Not Reportable 07/03/22 05:24 Lymph # (Auto) Not Reportable 07/03/22 05:24 [place] # (Auto) Not Reportable 07/03/22 05:24 Eos # (Auto) Not Reportable 07/03/22 05:24 Baso # (Auto) Not Reportable 07/03/22 05:24 Absolute Nucleated RBC Not Reportable 07/03/22 05:24 Total Counted 100 07/03/22 05:24 Band Neuts % (Manual) 8 % (0-10) 07/03/22 05:24 Abnorm Lymph % (Manual) 0 % 07/03/22 05:24 Metamyelocytes % 5 % (-0) H 07/03/22 05:24 Myelocytes % 5 % (-0) H 07/03/22 05:24 Nucleated RBC % Not Reportable 07/03/22 05:24 Neutrophils # (Manual) 7.0 10^3/uL (1.5-6.6) H 07/03/22 05:24 Lymphocytes # (Manual) 5.8 10^3/uL (1.5-3.5) H 07/03/22 05:24 Monocytes # (Manual) 0.3 10^3/uL (0.0-1.0) 07/03/22 05:24 Eosinophils # (Manual) 1.5 10^3/uL (0-0.7) H 07/03/22 05:24 Basophils # (Manual) 0.0 10^3/uL (0-0.1) 07/03/22 05:24 Differential Comment MANUAL DIFFERENTIAL 07/03/22 05:24 WBC Morphology NORMAL APPEARANCE (NORMAL) 07/01/22 04:25 Platelet Estimate NORMAL (130-450,000) (NORMAL) 07/03/22 05:24 Platelet Morphology NORMAL APPEARANCE (NORMAL) 07/01/22 04:25 RBC Morph Micro Appear NORMAL APPEARANCE (NORMAL) 07/03/22 05:24 Bld Gas Analysis Time 1251 06/30/22 12:45 Sample Site LEFT RADIAL 06/30/22 12:45 ABG pH 7.46 (7.35-7.45) H 06/30/22 12:45 ABG pCO2 20 mmHg (34-45) L* 06/30/22 12:45 ABG pO2 72 mmHg (80-100) L 06/30/22 12:45 ABG HCO3 14.1 mmol/L (22.0-26.0) L 06/30/22 12:45 ABG Total CO2 14.8 MMOL/L (21.0-29.0) L 06/30/22 12:45 ABG O2 Saturation 96 % (94-98) 06/30/22 12:45 ABG Base Excess -7.3 mmol/L (-2.0-3.0) L 06/30/22 12:45 Joe Test POSITIVE 06/30/22 12:45 VBG pH 7.379 (7.31-7.41) 07/03/22 05:24 Ionized Calcium 1.09 mmol/L (1.15-1.33) L 07/03/22 05:24 Room Air YES 06/30/22 12:45 Sodium 135 mmol/L (135-145) 07/03/22 05:24 Potassium 3.2 mmol/L (3.5-5.0) L 07/03/22 05:24 Chloride 109 mmol/L (101-111) 07/03/22 05:24 Carbon Dioxide 21 mmol/L (21-32) 07/03/22 05:24 Anion Gap 5.0 (6-13) L 07/03/22 05:24 BUN 8 mg/dL (6-20) 07/03/22 05:24 Creatinine 0.7 mg/dL (0.4-1.0) 07/03/22 05:24 Estimated GFR (MDRD) 98 (>89) 07/03/22 05:24 Glucose 123 mg/dL (70-100) H 07/03/22 05:24 Lactic Acid 1.9 mmol/L (0.5-2.2) 06/30/22 18:40 Calcium 7.3 mg/dL (8.5-10.3) L 07/03/22 05:24 Ionized Calcium YES 06/30/22 18:15 Phosphorus 1.9 mg/dL (2.5-4.6) L 07/03/22 05:24 Magnesium 1.5 mg/dL (1.7-2.8) L 07/03/22 05:24 Total Bilirubin 2.9 mg/dL (0.2-1.0) H 07/02/22 03:30 AST 31 IU/L (10-42) 07/02/22 03:30 ALT 35 IU/L (10-60) 07/02/22 03:30 Alkaline Phosphatase 75 IU/L (42-121) 07/02/22 03:30 Troponin I High Sens 4.6 ng/L (2.3-14.8) 06/29/22 23:34 C-Reactive Protein 3.0 mg/dL (0-1.0) H 06/29/22 08:52 Total Protein 4.7 g/dL (6.7-8.2) L 07/02/22 03:30 Albumin 2.2 g/dL (3.2-5.5) L 07/02/22 03:30 Globulin 2.5 g/dL (2.1-4.2) 07/02/22 03:30 Albumin/Globulin Ratio 0.9 (1.0-2.2) L 07/02/22 03:30 Lipase 28 U/L (22-51) 06/29/22 08:52 Procalcitonin 16.16 ng/mL (<0.5) H* 06/30/22 07:17 Urine Color DARK YELLOW 06/29/22 16:20 Urine Clarity HAZY (CLEAR) 06/29/22 16:20 Urine pH 5.5 PH (5.0-7.5) 06/29/22 16:20 Ur Specific [place] 1.025 (1.002-1.030) 06/29/22 16:20 Urine Protein TRACE mg/dL (NEGATIVE) 06/29/22 16:20 Urine Glucose (UA) NEGATIVE mg/dL (NEGATIVE) 06/29/22 16:20 Urine Ketones TRACE mg/dL (NEGATIVE) 06/29/22 16:20 Urine Occult Blood NEGATIVE (NEGATIVE) 06/29/22 16:20 Urine Nitrite POSITIVE (NEGATIVE) H 06/29/22 16:20 Urine Bilirubin MODERATE (NEGATIVE) H 06/29/22 16:20 Urine Urobilinogen 1 (NORMAL) E.U./dL (NORMAL) 06/29/22 16:20 Ur Leukocyte Esterase NEGATIVE (NEGATIVE) 06/29/22 16:20 Urine RBC 0-5 /HPF (0-5) 06/29/22 16:20 Urine WBC 0-3 /HPF (0-5) 06/29/22 16:20 Ur Squamous Epith Cells FEW Squamous (<= Few) 06/29/22 16:20 Urine Bacteria Moderate /HPF (None Seen) H 06/29/22 16:20 Urine Mucus Moderate Strands 06/29/22 16:20 Ur Microscopic Review INDICATED 06/29/22 16:20 Urine Culture Comments INDICATED 06/29/22 16:20 Urine HCG, Qual NEGATIVE 06/29/22 16:20 Nasal Adenovirus (PCR) NOT DETECTED 06/29/22 09:05 Nasal B. parapertussis DNA (PCR) NOT DETECTED 06/29/22 09:05 Nasal Coronavir 229E PCR NOT DETECTED 06/29/22 09:05 Nasal Coronavir HKU1 PCR NOT DETECTED 06/29/22 09:05 Nasal Coronavir NL63 PCR NOT DETECTED 06/29/22 09:05 Nasal Coronavir OC43 PCR NOT DETECTED 06/29/22 09:05 Nasal Enterovir/Rhinovir PCR NOT DETECTED 06/29/22 09:05 Nasal Influenza B PCR NOT DETECTED 06/29/22 09:05 Nasal Influenza A PCR NOT DETECTED 06/29/22 09:05 Nasal Parainfluen 1 PCR NOT DETECTED 06/29/22 09:05 Nasal Parainfluen 2 PCR NOT DETECTED 06/29/22 09:05 Nasal Parainfluen 3 PCR NOT DETECTED 06/29/22 09:05 Nasal Parainfluen 4 PCR NOT DETECTED 06/29/22 09:05 Nasal RSV (PCR) NOT DETECTED 06/29/22 09:05 Nasal Screen MRSA (PCR) NEGATIVE (NEGATIVE) 06/30/22 12:25 Nasal B.pertussis DNA PCR NOT DETECTED 06/29/22 09:05 Nasal C.pneumoniae (PCR) NOT DETECTED 06/29/22 09:05 Ronnie Human Metapneumo PCR NOT DETECTED 06/29/22 09:05 Nasal M.pneumoniae (PCR) NOT DETECTED 06/29/22 09:05 Nasal SARS-CoV-2 (PCR) NOT DETECTED 06/29/22 09:05 Stl C. diff Tox B Gene NEGATIVE (NEGATIVE) 06/29/22 19:32 Last Dose Date 07/02/2022 07/02/22 12:15 Last Dose Time 25407/02/22 12:15 Vancomycin Trough 10.4 ug/mL (10.0-20.0) 07/02/22 12:15 Sepsis Event Note (H) - Evaluation Current Stage of Sepsis: Severe sepsis Possible source of Sepsis: positive: Skin/soft tissue, Wound - Sepsis Criteria Sepsis Criteria: Recorded Temperature greater than 38.3C or Less than 36C, Rec orded Heart Rate greater than 90 bpm, Recorded Respiratory Rate greater than 20, WBC count greater than 10% bands, WBC count greater than 12,000 or less than 4000, Metabolic: lactate > 2 mmol/L
[2022-07-04] MEDS: LACTOBACILLUS RHAMNOSUS GG CAPSULE PO SCH ×2 (00:26→09:11)
[2022-07-04] MEDS: ACETAMINOPHEN 325 MG TABLET PO PRN ×5 (00:26→18:26)
[2022-07-04] MEDS: VANCOMYCIN INJ 1 GM, VANCOMYCIN INJ 500 MG in SODIUM CHLORIDE 0.9% 500 ML IV SCH ×2 (00:27→13:40)
[2022-07-04] MEDS: SODIUM CHLORIDE FLUSH 0.9% 10 ML SYRINGE IVP SCH ×3 (00:30→16:27)
[2022-07-04] MEDS: SODIUM CHLORIDE 0.9% 1,000 ML IV SCH (04:54)
[2022-07-04 06:03] LABS: BASOPHILS % (AUTO) 0.8 %; EOSINOPHILS % (AUTO) 6.6 %; HCT - HEMATOCRIT 31.1 % (37.0-47.0); HGB - HEMOGLOBIN 10.1 g/dL (12.0-16.0); LYMPHOCYTES % (AUTO) 32.3 %; MEAN CORPUSCULAR HGB CONC 32.5 g/dL (32.0-36.0); MEAN CORPUSCULAR VOLUME 89.4 fL (81.0-99.0); PLT - PLATELET COUNT 189 10^3/uL (130-450); RED BLOOD COUNT 3.48 10^6/uL (4.20-5.40); WHITE BLOOD COUNT 17.9 x10^3/uL (4.8-10.8)
[2022-07-04 06:11] LABS: CALCIUM 7.6 mg/dL (8.5-10.3); CREATININE 0.7 mg/dL (0.4-1.0); POTASSIUM 3.5 mmol/L (3.5-5.0)
[2022-07-04 06:20] LABS: ABNORMAL LYMPHS % (MANUAL) 0 %
[2022-07-04 06:44] LABS: BAND NEUTROPHILS % (MANUAL) 3 %; EOSINOPHILS # (MANUAL) 0.9 10^3/uL (0-0.7); LYMPHOCYTES # (MANUAL) 5.4 10^3/uL (1.5-3.5); LYMPHOCYTES % (MANUAL) 30 %; METAMYELOCYTES % (MANUAL) 2 %; MYELOCYTES % (MANUAL) 3 %; NEUTROPHILS # (MANUAL) 8.8 10^3/uL (1.5-6.6)
[2022-07-04 06:45] LABS: DIFFERENTIAL COMMENT MANUAL DIFFERENTIAL; PLATELET ESTIMATE, MANUAL NORMAL (130-450,000) (NORMAL); RBC MORPHOLOGY (MULTIPLE) NORMAL APPEARANCE (NORMAL)
[2022-07-04] MEDS: ENOXAPARIN 40 MG/0.4 ML SYRINGE SUBQ SCH (09:11)
--- NOTE | 2022-07-04 09:19 | PROVIDER PROGRESS NOTE ---
Assessment/Plan - Problem List (1) Cellulitis Qualifiers: Site of cellulitis of extremity: lower extremity Laterality: right Assessment/Plan: On Day 2 of this hospitalization, her right knee, lateral aspect became more red and warm. CT of the knee was done and read as probable cellulitis, no joint involvement. After antibiotics were broadened, she became alert and awake. No fever now for over 24 hours. She was able to describe events that occurred after her knee surgery: 72 hours after her arthroscopy, when she took off the knee bandages, she noticed 4 scars, and one looked like a punch hole. She had been told there would only be 3 scars therefore she did not know what the punch hole on the lateral right knee was and this later started to leak clear fluid. Then the morning of this admission, she remembers the leakage became purulent. Her blood cultures are negative to date, taken one day apart. There is leakage from the "punch hole" area where it looked like a pimple with a white head. The reddened area around it has diminished even more since. White blood count and left shift have worsened today Plan: We will obtain MRI of the right knee for better visualization and concerned that there is an abscess under the skin and possibly in the joint Await blood culture results drawn during fever spikes. Continue with ceftriaxone and vancomycin I may try to reach her orthopedic surgeon, Dr Oreilly, for any further advice (2) Staph aureus infection Yesterday 1/ the "candelaria", on the right lateral aspect of the operated R knee, started draining. A culture of the fluid was sent. Gram stain showed white cells and GPC. Today that wound culture has been identified is growing Staph ureus. Sensitivities are still pending, we do not know if it is MRSA Plan: She has already been started on iv Vancomycin several days ago, will continue this. (3) Status post arthroscopic knee surgery Conclusion/Plan: This surgery was done at a different hospital. Clinically, the knee did not look like the source of the fever when she presented to the ED, on POD #5. This was also the impression of her orthopedist after phone description and discussion with the ED provider. On Day 2 here,the area of the lateral knee became red and warm, which was a new finding. After starting antibx for cellulitis, the redness has lessened in area, but we saw a new "candelaria" pimple in its center. Since 07/03 that opened and is draining. An MRI of the right knee was done yesterday 07/03 and this did not show an abscess. MRI was read as having extensive cellulitis, and post-op changes were seen. Patient walked more yesterday than she has since surgery, she thinks that is why the R knee and thigh are more swollen today, despite less redness. Plan: Continue antibiotics,Tylenol prn, Motrin prn, ice packs prn. I will try to contact Dr. Oreilly her Orthopedic surgeon, and describe what has happened to her over the past several days. (4) Diarrhea Impression: This patient had N/V/D at presentation. A stool for C. diff was sent at admission and was neg. Those sx all resolved as her sepsis was treated. Telemedicine was called last night by RN requesting antidiarrheal treatment, because greater than 10 liquid BMs were reported yesterday. C. diff was tested again last night and has come back neg Plan: Will order Imodium Will continue probiotics (5) Sleep Apnea Conclusion/Plan: This was witnessed by our RN when she was in the ICU and she desaturated briefly. The reports she snores and has many apneic episodes that he has witnessed. She very likely has obesity-hypoventilation syndrome Plan: She will need an outpatient sleep study. When I told the pt, she said she already has had a plan to request a sleep study from her PCP. (6) Morbid obesity with body mass index (BMI) of 40.0 to 44.9 in adult Conclusion/Plan: Her BMI is 43. This made venipuncture very difficult. She still has a central iv line, which was placed when she was septic in the ICU. (7) Severe sepsis Impression: Resolved She had a fever, an elevated L.A. was tachycardic and tachypneic yesterday. WBC darlene from normal to 26. Procalcitonin darlene from 10 yesterday to 16 Even on iv fluids, the L.A. darlene 4>> 3.7>> 4.4, before improving. He was moved to the ICU. A central line needed to be inserted by Anesthesia. nShe received greater than 3 0 cc/kg IV fluids for a day, this was tapered down, her LA improved, discontinued her Phelps, we upgraded her critical condition to stable and she was moved out of the ICU (8) Teteny from hypocalcemia Impression: Resolved Patient had acute hypocalcemia, Ca dropped down to 7.1 with a normal albumin. This is seen with severe sepsis. She was given several IV calcium gluconate riders over 15-minute infusions until her symptoms resolved. We also needed to correct low magnesium level and phosphorus levels (9) Tachypnea Resolved She started to become tachypneic with her fever and also at that point described new mid back pain, between the shoulder blades, rated 10/10. She could not tell if it was pleuritic. She has never had it before.Concern is that this is PE after undergoing orthopedic surgery and being more immobilized than normal She was transferred to the ICU. ABG was done, did not show acidosis or hypoxemia. Because of recent immobilization, concern for an acute PE, therefore we started Lovenox 110 mg BID, empirically for a poss PE. She underwent a CTA later that night, which did not show a PE nor any thoracic aortic pathology. BID Lovenox was stopped. We got an Echo to eval chamber sizes and function. This showed normal chamber sizes, normal LV and RV contractility (10) Bacteriuria Impression: There was no UA done at admission. UA was done after she was placed in Obs ervation and was quite remarkable for elevated nitrates and had moderate white blood cells and moderate bacteria, culture was indicated. We initially thought that a UTI was the cause of her sepsis, and started Ceftiaxone. The final urine culture grew no bacteria. (11) Nausea, vomiting Resolved The presentation sounded very much like a viral gastroenteritis. She did not h ave abdominal imaging done in the ED. CT abd/pelvis was done after she was (initially) placed in Observation. The CT was unremarkable. As her sepsis resolved, her nausea and vomiting improved. Has been able to report that she gets nausea and vomiting whenever she has pain, whenever there is a change in her clinical status, it even happened when her Orthopod was moving her patella, which caused pain. Qualifiers: Site of cellulitis of extremity: lower extremity Laterality: right (12) Hypokalemia Conclusion/Plan: Resolved with K replacement. Likely caused by her vomiting Plan: Follow BMP daily - Current Meds Current Meds: Current Medications Generic Name Dose Route Start Last Admin Trade Name Freq PRN Reason Stop Dose Admin Acetaminophen 650 mg 07/02/22 10:59 07/04/22 09:11 Acetaminophen 325 Mg Tablet PO 650 mg Q4HR PRN Administration Pain or Fever > 38C (100.4F) Calcium Carbonate/Glycine 500 mg 07/01/22 18:55 07/02/22 13:56 Calcium Carbonate Chew 500 Mg Tablet PO 500 mg TID PRN Administration INDIGESTION Enoxaparin Sodium 40 mg 07/01/22 09:00 07/04/22 09:11 Enoxaparin 40 Mg/0.4 Ml Syringe SUBQ 40 mg DAILY TERRELL Administration Vancomycin HCl 1 gm/ 500 mls @ 250 mls/hr 07/01/22 01:00 07/04/22 02:27 Vancomycin HCl 500 mg/ Sodium IV Infused Chloride Q12H TERRELL Infusion Lactobacillus Rhamnosus 1 cap 07/03/22 22:30 07/04/22 09:11 Lactobacillus Rhamnosus Gg Capsule PO 1 cap DAILY TERRELL Administration Ondansetron HCl 4 mg 06/29/22 13:40 07/03/22 12:15 Ondansetron 4 Mg/2 Ml Vial IVP 4 mg Q6HR PRN Administration Nausea / Vomiting Sodium Chloride 10 ml 06/29/22 13:40 07/03/22 13:54 Sodium Chloride Flush 0.9% 10 Ml Syringe IVP 10 ml PRN PRN Administration NEEDED PER PROVIDER ORDERS Sodium Chloride 10 ml 06/29/22 17:00 07/04/22 09:12 Sodium Chloride Flush 0.9% 10 Ml Syringe IVP 10 ml 0100,0900,1700 TERRELL Administration Sodium Chloride 20 ml 07/01/22 20:29 07/03/22 10:38 Sodium Chloride Flush 0.9% 10 Ml Syringe IVP 20 ml PRN PRN Administration After Blood Draw - Lab Result Fish Bone Diagrams: 07/04/22 05:57 07/04/22 05:57 - Additional Planning My Orders: My Active Orders 07/03/22 18:00 CUL,WOUND (AEROBIC) [RM] Stat 07/04/22 08:53 Ibuprofen [Motrin] 400 mg PO Q6HR PRN 07/05/22 05:00 BMP - BASIC METABOLIC PANEL [CHEM] DAILYLAB 07/06/22 05:00 BMP - BASIC METABOLIC PANEL [CHEM] DAILYLAB Subjective - Subjective Patient Reports: Other (Has more extensive swelling above and around the right knee but less redness. The wound which was a "candelaria" is still draining, has a bandage over it) Objective Vital Signs: Vital Signs - 24 hr 07/03/22 07/03/22 07/04/22 14:00 15:41 00:30 Temperature 36.3 C L 36.9 C 37.1 C Heart Rate [ 94 90 Brachial] Heart Rate [ 93 Radial] Respiratory 19 18 18 Rate Blood Pressure 135/75 H 130/84 H 131/81 H [Right Brachial artery] O2 Saturation 99 96 96 Oxygen O2 Source Room air I&O (Last 24 Hrs): Intake and Output Totals x24h 07/02/22 07/03/22 07/04/22 23:59 23:59 23:59 Intake Total 2869.882 4450.0 1400 Output Total 890 Balance 8970.763 6064.0 1400 General: Alert, Oriented x3, Other (Obese young female in mild distress from knee pain currently) HEENT: Mucous membr. moist/pink, Other (Appears fatigued) Neuro: Alert, Non Focal Cardiovascular: Regular rate Respiratory: No respiratory distress Abdomen: Soft, Other (Obese) Extremities: Other (2+ edema of the lower R thigh but no redness or warmth. R Knee swollen. The redness of the lateral right knee has completely resolved. The wound to the right of the knee is draining.) - Results Results: Laboratory Results WBC 17.9 x10^3/uL (4.8-10.8) H 07/04/22 05:57 RBC 3.48 10^6/uL (4.20-5.40) L 07/04/22 05:57 Hgb 10.1 g/dL (12.0-16.0) L 07/04/22 05:57 Hct 31.1 % (37.0-47.0) L 07/04/22 05:57 MCV 89.4 fL (81.0-99.0) 07/04/22 05:57 MCH 29.0 pg (27.0-31.0) 07/04/22 05:57 MCHC 32.5 g/dL (32.0-36.0) 07/04/22 05:57 RDW 15.0 % (12.0-15.0) 07/04/22 05:57 Plt Count 189 10^3/uL (130-450) 07/04/22 05:57 MPV 10.0 fL (7.9-10.8) 07/04/22 05:57 Neut # (Auto) Not Reportable 07/04/22 05:57 Lymph # (Auto) Not Reportable 07/04/22 05:57 [place] # (Auto) Not Reportable 07/04/22 05:57 Eos # (Auto) Not Reportable 07/04/22 05:57 Baso # (Auto) Not Reportable 07/04/22 05:57 Absolute Nucleated RBC Not Reportable 07/04/22 05:57 Total Counted 100 07/04/22 05:57 Band Neuts % (Manual) 3 % (0-10) 07/04/22 05:57 Abnorm Lymph % (Manual) 0 % 07/04/22 05:57 Metamyelocytes % 2 % (-0) H 07/04/22 05:57 Myelocytes % 3 % (-0) H 07/04/22 05:57 Nucleated RBC % Not Reportable 07/04/22 05:57 Neutrophils # (Manual) 8.8 10^3/uL (1.5-6.6) H 07/04/22 05:57 Lymphocytes # (Manual) 5.4 10^3/uL (1.5-3.5) H 07/04/22 05:57 Monocytes # (Manual) 2.0 10^3/uL (0.0-1.0) H 07/04/22 05:57 Eosinophils # (Manual) 0.9 10^3/uL (0-0.7) H 07/04/22 05:57 Basophils # (Manual) 0.0 10^3/uL (0-0.1) 07/04/22 05:57 Differential Comment MANUAL DIFFERENTIAL 07/04/22 05:57 WBC Morphology NORMAL APPEARANCE (NORMAL) 07/01/22 04:25 Platelet Estimate NORMAL (130-450,000) (NORMAL) 07/04/22 05:57 Platelet Morphology NORMAL APPEARANCE (NORMAL) 07/01/22 04:25 RBC Morph Micro Appear NORMAL APPEARANCE (NORMAL) 07/04/22 05:57 Bld Gas Analysis Time 1251 06/30/22 12:45 Sample Site LEFT RADIAL 06/30/22 12:45 ABG pH 7.46 (7.35-7.45) H 06/30/22 12:45 ABG pCO2 20 mmHg (34-45) L* 06/30/22 12:45 ABG pO2 72 mmHg (80-100) L 06/30/22 12:45 ABG HCO3 14.1 mmol/L (22.0-26.0) L 06/30/22 12:45 ABG Total CO2 14.8 MMOL/L (21.0-29.0) L 06/30/22 12:45 ABG O2 Saturation 96 % (94-98) 06/30/22 12:45 ABG Base Excess -7.3 mmol/L (-2.0-3.0) L 06/30/22 12:45 Joe Test POSITIVE 06/30/22 12:45 VBG pH 7.379 (7.31-7.41) 07/03/22 05:24 Ionized Calcium 1.09 mmol/L (1.15-1.33) L 07/03/22 05:24 Room Air YES 06/30/22 12:45 Sodium 141 mmol/L (135-145) 07/04/22 05:57 Potassium 3.5 mmol/L (3.5-5.0) 07/04/22 05:57 Chloride 110 mmol/L (101-111) 07/04/22 05:57 Carbon Dioxide 22 mmol/L (21-32) 07/04/22 05:57 Anion Gap 9.0 (6-13) 07/04/22 05:57 BUN 6 mg/dL (6-20) 07/04/22 05:57 Creatinine 0.7 mg/dL (0.4-1.0) 07/04/22 05:57 Estimated GFR (MDRD) 98 (>89) 07/04/22 05:57 Glucose 111 mg/dL (70-100) H 07/04/22 05:57 Lactic Acid 1.9 mmol/L (0.5-2.2) 06/30/22 18:40 Calcium 7.6 mg/dL (8.5-10.3) L 07/04/22 05:57 Ionized Calcium YES 06/30/22 18:15 Phosphorus 1.9 mg/dL (2.5-4.6) L 07/03/22 05:24 Magnesium 1.5 mg/dL (1.7-2.8) L 07/03/22 05:24 Total Bilirubin 2.9 mg/dL (0.2-1.0) H 07/02/22 03:30 AST 31 IU/L (10-42) 07/02/22 03:30 ALT 35 IU/L (10-60) 07/02/22 03:30 Alkaline Phosphatase 75 IU/L (42-121) 07/02/22 03:30 Troponin I High Sens 4.6 ng/L (2.3-14.8) 06/29/22 23:34 C-Reactive Protein 3.0 mg/dL (0-1.0) H 06/29/22 08:52 Total Protein 4.7 g/dL (6.7-8.2) L 07/02/22 03:30 Albumin 2.2 g/dL (3.2-5.5) L 07/02/22 03:30 Globulin 2.5 g/dL (2.1-4.2) 07/02/22 03:30 Albumin/Globulin Ratio 0.9 (1.0-2.2) L 07/02/22 03:30 Lipase 28 U/L (22-51) 06/29/22 08:52 Procalcitonin 16.16 ng/mL (<0.5) H* 06/30/22 07:17 Urine Color DARK YELLOW 06/29/22 16:20 Urine Clarity HAZY (CLEAR) 06/29/22 16:20 Urine pH 5.5 PH (5.0-7.5) 06/29/22 16:20 Ur Specific [place] 1.025 (1.002-1.030) 06/29/22 16:20 Urine Protein TRACE mg/dL (NEGATIVE) 06/29/22 16:20 Urine Glucose (UA) NEGATIVE mg/dL (NEGATIVE) 06/29/22 16:20 Urine Ketones TRACE mg/dL (NEGATIVE) 06/29/22 16:20 Urine Occult Blood NEGATIVE (NEGATIVE) 06/29/22 16:20 Urine Nitrite POSITIVE (NEGATIVE) H 06/29/22 16:20 Urine Bilirubin MODERATE (NEGATIVE) H 06/29/22 16:20 Urine Urobilinogen 1 (NORMAL) E.U./dL (NORMAL) 06/29/22 16:20 Ur Leukocyte Esterase NEGATIVE (NEGATIVE) 06/29/22 16:20 Urine RBC 0-5 /HPF (0-5) 06/29/22 16:20 Urine WBC 0-3 /HPF (0-5) 06/29/22 16:20 Ur Squamous Epith Cells FEW Squamous (<= Few) 06/29/22 16:20 Urine Bacteria Moderate /HPF (None Seen) H 06/29/22 16:20 Urine Mucus Moderate Strands 06/29/22 16:20 Ur Microscopic Review INDICATED 06/29/22 16:20 Urine Culture Comments INDICATED 06/29/22 16:20 Urine HCG, Qual NEGATIVE 06/29/22 16:20 Nasal Adenovirus (PCR) NOT DETECTED 06/29/22 09:05 Nasal B. parapertussis DNA (PCR) NOT DETECTED 06/29/22 09:05 Nasal Coronavir 229E PCR NOT DETECTED 06/29/22 09:05 Nasal Coronavir HKU1 PCR NOT DETECTED 06/29/22 09:05 Nasal Coronavir NL63 PCR NOT DETECTED 06/29/22 09:05 Nasal Coronavir OC43 PCR NOT DETECTED 06/29/22 09:05 Nasal Enterovir/Rhinovir PCR NOT DETECTED 06/29/22 09:05 Nasal Influenza B PCR NOT DETECTED 06/29/22 09:05 Nasal Influenza A PCR NOT DETECTED 06/29/22 09:05 Nasal Parainfluen 1 PCR NOT DETECTED 06/29/22 09:05 Nasal Parainfluen 2 PCR NOT DETECTED 06/29/22 09:05 Nasal Parainfluen 3 PCR NOT DETECTED 06/29/22 09:05 Nasal Parainfluen 4 PCR NOT DETECTED 06/29/22 09:05 Nasal RSV (PCR) NOT DETECTED 06/29/22 09:05 Nasal Screen MRSA (PCR) NEGATIVE (NEGATIVE) 06/30/22 12:25 Nasal B.pertussis DNA PCR NOT DETECTED 06/29/22 09:05 Nasal C.pneumoniae (PCR) NOT DETECTED 06/29/22 09:05 Ronnie Human Metapneumo PCR NOT DETECTED 06/29/22 09:05 Nasal M.pneumoniae (PCR) NOT DETECTED 06/29/22 09:05 Nasal SARS-CoV-2 (PCR) NOT DETECTED 06/29/22 09:05 Stl C. diff Tox B Gene NEGATIVE (NEGATIVE) 07/04/22 00:35 Last Dose Date 07/02/2022 07/02/22 12:15 Last Dose Time 25407/02/22 12:15 Vancomycin Trough 10.4 ug/mL (10.0-20.0) 07/02/22 12:15 Sepsis Event Note (H) - Evaluation Current Stage of Sepsis: Severe sepsis Possible source of Sepsis: positive: Skin/soft tissue, Wound - Sepsis Criteria Sepsis Criteria: Recorded Temperature greater than 38.3C or Less than 36C, Recorded Heart Rate greater than 90 bpm, Recorded Respiratory Rate greater than 20, WBC count greater than 10% bands, WBC count greater than 12,000 or less than 4000, Metabolic: lactate > 2 mmol/L
[2022-07-04] MEDS: IBUPROFEN 400 MG TABLET PO PRN ×2 (10:43→17:43)
[2022-07-04] MEDS: SODIUM CHLORIDE FLUSH 0.9% 10 ML SYRINGE IVP PRN ×2 (10:45→10:46)
[2022-07-04] MEDS: LOPERAMIDE 2 MG CAPSULE PO PRN ×2 (14:05→18:26)
[2022-07-04] MEDS: HYDROmorphone 0.5 MG/0.5 ML SYRINGE IVP PRN (21:45)
[2022-07-05] MEDS: VANCOMYCIN INJ 1 GM, VANCOMYCIN INJ 500 MG in SODIUM CHLORIDE 0.9% 500 ML IV SCH ×2 (00:58→13:11)
[2022-07-05] MEDS: SODIUM CHLORIDE FLUSH 0.9% 10 ML SYRINGE IVP PRN ×3 (01:01→11:09)
[2022-07-05] MEDS: SODIUM CHLORIDE FLUSH 0.9% 10 ML SYRINGE IVP SCH ×3 (01:01→20:33)
[2022-07-05] MEDS: ACETAMINOPHEN 325 MG TABLET PO PRN ×4 (01:04→20:07)
[2022-07-05] MEDS: IBUPROFEN 400 MG TABLET PO PRN ×3 (03:55→16:22)
[2022-07-05 06:13] LABS: CALCIUM 7.6 mg/dL (8.5-10.3); CREATININE 0.5 mg/dL (0.4-1.0); POTASSIUM 3.2 mmol/L (3.5-5.0)
[2022-07-05] MEDS: ENOXAPARIN 40 MG/0.4 ML SYRINGE SUBQ SCH (09:30)
[2022-07-05] MEDS: LACTOBACILLUS RHAMNOSUS GG CAPSULE PO SCH (09:30)
[2022-07-05 10:46] LABS: EOSINOPHILS % (AUTO) 6.3 %; HCT - HEMATOCRIT 31.6 % (37.0-47.0); HGB - HEMOGLOBIN 10.1 g/dL (12.0-16.0); LYMPHOCYTES % (AUTO) 32.4 %; MEAN CORPUSCULAR HEMOGLOBIN 29.2 pg (27.0-31.0); MEAN CORPUSCULAR VOLUME 91.3 fL (81.0-99.0); MEAN PLATELET VOLUME 9.8 fL (7.9-10.8); MONOCYTES % (AUTO) 5.1 %; NEUTROPHILS % (AUTO) 33.4 %; PLT - PLATELET COUNT 264 10^3/uL (130-450); RED BLOOD COUNT 3.46 10^6/uL (4.20-5.40); RED CELL DISTRIBUTION WIDTH 15.1 % (12.0-15.0); WHITE BLOOD COUNT 17.6 x10^3/uL (4.8-10.8)
[2022-07-05 10:50] LABS: ABNORMAL LYMPHS % (MANUAL) 0 %; SLIDE REVIEW? Indicated
[2022-07-05 11:02] LABS: BAND NEUTROPHILS % (MANUAL) 14 %; EOSINOPHILS # (MANUAL) 1.4 10^3/uL (0-0.7); LYMPHOCYTES # (MANUAL) 5.1 10^3/uL (1.5-3.5); LYMPHOCYTES % (MANUAL) 25 %; MONOCYTES # (MANUAL) 0.7 10^3/uL (0.0-1.0); MYELOCYTES % (MANUAL) 4 %; NEUTROPHILS # (MANUAL) 9.7 10^3/uL (1.5-6.6); REACTIVE LYMPHS % (MANUAL) 4 %
[2022-07-05 11:03] LABS: DIFFERENTIAL COMMENT MANUAL DIFFERENTIAL
[2022-07-05] MEDS: POTASSIUM CHLOR 10 MEQ/100 ML 10 MEQ/100 ML BAG IV SCH ×2 (11:09→12:12)
[2022-07-05] MEDS ORDERED: SUMAtriptan 25 MG TABLET PO ONE (13:02)
[2022-07-05] MEDS: LOPERAMIDE 2 MG CAPSULE PO PRN ×2 (15:04→20:07)
--- NOTE | 2022-07-05 15:28 | PROVIDER PROGRESS NOTE ---
Assessment/Plan - Problem List (1) Cellulitis Qualifiers: Site of cellulitis of extremity: lower extremity Laterality: right Assessment/Plan: On Day 2 of this hospitalization, her right knee, lateral aspect, became red and warm. CT of the knee showed cellulitis, no joint involvement. It caused sepsis, and she was in the ICU. After antibiotics were broadened, she slowly improved. She was then able to describe events that occurred after her knee surgery: 72 hours after her arthroscopy, when she took off the knee bandages, she noticed 4 scars, and one looked like a punch hole. She had been told there would only be 3 scars therefore she did not know what the punch hole on the lateral right knee was and this later started to leak clear fluid. Then the morning of this admission, she remembers the leakage became purulent. Her blood cultures are all negative to date White blood count and left shift had worsened the last 2 days and today. So we obtain MRI of the right knee when WBC darlene, for better visualization and concern that there is an abscess under the skin and possibly in the joint. The MRI was read out as cellulitis There is leakage from the "punch hole" area where it looked like a pimple with a "candelaria". There is a simple bandaid over it. Cx of that drainage was sent and grew Staph. The reddened area around the hole has diminished entirely. Plan: Await blood culture results drawn during fever spikes. Await sens from the wound cx growing S. aureus Continue iv vancomycin until a po antibx will be used (2) Staph aureus infection On 07/03 the "candelaria", on the right lateral aspect of the operated R knee, started draining. A culture of the fluid was sent. Gram stain showed white cells and GPCocci. That wound culture has been identified is growing Staph aureus. Sensitivities are still pending, we do not know if it is MRSA Plan: She has already been started on iv Vancomycin several days ago, will continue this. Await sensitivity on the Staph aureus, to transition to a po antibiotic I discussed her status and this plan with pt and her and her father were at bedside, ttoday 07/05 (3) Status post arthroscopic knee surgery Conclusion/Plan: This surgery was done at a different hospital. Clinically, the knee did not look like the source of the fever when she presented to the ED; it was her POD #5. This was also the impression of her orthopedist after phone description and discussion with the ED provider. On Day 2 here,the area of the lateral knee became red and warm, which was a new finding. After starting antibx for cellulitis, the redness has lessened in area, but we saw a new "candelaria" pimple in its center. Since 07/03 that wound opened and is draining. Patient walked more the past 2 days than she has since surgery, she thinks that is why the R knee and thigh were more swollen yesterday despite less redness. Plan: Continue antibiotics,Tylenol prn, Motrin prn, ice packs prn. She has an appointment for a post-op visit to Dr Oreilly, her Orthopedist, tomorrow 07/06 at 2:30 pm, and possibly she will be discharged tomorrow, when we know the sensitivities. (4) Migraine Impression: Today 07/05 she started to have a headache that is her typical migraine, she told her RN. She takes Ubrelvy at home which we do not have on formulary in our pharmacy here Plan: Will order Imitrex as needed Will order her Ubrelvy, as patient's own med, if she has it here, to use prn migraines (5) Diarrhea Impression: This patient had N/V/D at presentation. A stool for C. diff was sent at admission and was neg. Also bacterial cx of stool were done and are neg for Shigella, Slamonella, etc. Those sx all resolved as her sepsis was treated. Then her diarrhea recurred on 07/03 and Telemedicine was called by RN requesting antidiarrheal treatment, because greater than 10 liquid BMs were reported. C. diff was tested again and has come back neg Plan: Continue prn Imodium Will continue probiotics (6) Sleep Apnea Conclusion/Plan: This was witnessed by our RN when she was in the ICU and she desaturated briefly. The reports she snores and has many apneic episodes that he has witnessed. She very likely has obesity-hypoventilation syndrome Plan: She will need an outpatient sleep study. When I told the pt, she said she already has had a plan to request a sleep study from her PCP. (7) Morbid obesity with body mass index (BMI) of 40.0 to 44.9 in adult Conclusion/Plan: Her BMI is 43. This made venipuncture very difficult. She still has a central iv line, which was placed when she was septic in the ICU. (8) Severe sepsis Impression: Resolved She had a fever, an elevated L.A. was tachycardic and tachypneic yesterday. WBC darlene from normal to 26. Procalcitonin darlene from 10 yesterday to 16 Even on iv fluids, the L.A. darlene 4>> 3.7>> 4.4, before improving. He was moved to the ICU. A central line needed to be inserted by Anesthesia. nShe received greater than 30 cc/kg IV fluids for a day, this was tapered down, her LA improved, disc ontinued her Phelps, we upgraded her critical condition to stable and she was moved out of the ICU (9) Teteny from hypocalcemia Impression: Resolved Patient had neck and spine torticolus on Day 2 and we found she had acute hypocalcemia, Ca dropped down to 7.1 with a normal albumin. This is seen with severe sepsis. She was given several IV calcium gluconate riders over 15-minute infusions until her symptoms resolved. We also needed to correct low magnesium level and phosphorus levels (10) Tachypnea Resolved She started to become tachypneic with her fever and also at that point described new mid back pain, between the shoulder blades, rated 10/10. She could not tell if it was pleuritic. She has never had it before.Concern is that this is PE after undergoing orthopedic surgery and being more immobilized than normal She was transferred to the ICU. ABG was done, did not show acidosis or hypoxemia. Because of recent immobilization, concern for an acute PE, therefore we started Lovenox 110 mg BID, empirically for a poss PE. She underwent a CTA later that night, which did not show a PE nor any thoracic aortic pathology. BID Lovenox was stopped. We got an Echo to eval chamber sizes and function. This showed normal chamber sizes, normal LV and RV contractility (11) Bacteriuria Impression: There was no UA done at admission. UA was done after she was placed in Observation (for presumed viral gastroenteritis), and was quite remarkable for elevated nitrates and had moderate white blood cells and moderate bacteria, culture was indicated. We initially thought that a UTI was the cause of her sepsis, and started Ceftiaxone. The final urine culture grew no bacteria. (12) Nausea, vomiting Resolved The presentation sounded very much like a viral gastroenteritis. She did not have abdominal imaging done in the ED. CT abd/pelvis was done after she was (in itially) placed in Observation. The CT was unremarkable. As her sepsis resolved, her nausea and vomiting improved. She has been able to report that she gets nausea and vomiting whenever she has pain, whenever she is really sick, it even happened when her Orthopod was moving her patella to examine it, which caused pain. Qualifiers: Site of cellulitis of extremity: lower extremity Laterality: right (13) Hypokalemia Conclusion/Plan: Resolved with K replacement. Likely caused by her vomiting then by her diarrhea Plan: Follow BMP daily - Current Meds Current Meds: Current Medications Generic Name Dose Route Start Last Admin Trade Name Freq PRN Reason Stop Dose Admin Acetaminophen 650 mg 07/02/22 10:59 07/05/22 12:16 Acetaminophen 325 Mg Tablet PO 650 mg Q4HR PRN Administration Pain or Fever > 38C (100.4F) Calcium Carbonate/Glycine 500 mg 07/01/22 18:55 07/02/22 13:56 Calcium Carbonate Chew 500 Mg Tablet PO 500 mg TID PRN Administration INDIGESTION Enoxaparin Sodium 40 mg 07/01/22 09:00 07/05/22 09:30 Enoxaparin 40 Mg/0.4 Ml Syringe SUBQ 40 mg DAILY TERRELL Administration Hydromorphone HCl 0.5 mg 07/04/22 19:09 07/04/22 21:45 Hydromorphone 0.5 Mg/0.5 Ml Syringe IVP 0.5 mg Q2H PRN Administration Breakthrough Pain Vancomycin HCl 1 gm/ 500 mls @ 250 mls/hr 07/01/22 01:00 07/05/22 14:40 Vancomycin HCl 500 mg/ Sodium IV 250 mls/hr Chloride Q12H TERRELL Infusion Ibuprofen 400 mg 07/04/22 08:53 07/05/22 09:30 Ibuprofen 400 Mg Tablet PO 400 mg Q6HR PRN Administration Pain or Fever > 38C (100.4F) Lactobacillus Rhamnosus 1 cap 07/03/22 22:30 07/05/22 09:30 Lactobacillus Rhamnosus Gg Capsule PO 1 cap DAILY TERRELL Administration Loperamide HCl 2 mg 07/04/22 11:54 07/05/22 15:04 Loperamide 2 Mg Capsule PO 2 mg QID PRN Administration Diarrhea Ondansetron HCl 4 mg 06/29/22 13:40 07/03/22 12:15 Ondansetron 4 Mg/2 Ml Vial IVP 4 mg Q6HR PRN Administration Nausea / Vomiting Sodium Chloride 10 ml 06/29/22 13:40 07/05/22 11:09 Sodium Chloride Flush 0.9% 10 Ml Syringe IVP 10 ml PRN PRN Administration NEEDED PER PROVIDER ORDERS Sodium Chloride 10 ml 06/29/22 17:00 07/05/22 09:30 Sodium Chloride Flush 0.9% 10 Ml Syringe IVP 10 ml 0100,0900,1700 TERRELL Administration Sodium Chloride 20 ml 07/01/22 20:29 07/05/22 09:33 Sodium Chloride Flush 0.9% 10 Ml Syringe IVP 20 ml PRN PRN Administration After Blood Draw - Lab Result Fish Bone Diagrams: 07/06/22 05:42 07/06/22 05:42 - Additional Planning My Orders: My Active Orders 07/04/22 19:09 HYDROmorphone 0.5MG SYRINGE [Dilaudid 0.5MG Syringe] 0.5 mg IVP Q2H PRN 07/05/22 Lunch DIET [Regular Diet] [DIET] 07/06/22 00:00 VANCOMYCIN TROUGH [CHEM] Timed 07/06/22 05:00 BMP - BASIC METABOLIC PANEL [CHEM] DAILYLAB CBC - COMP BLD CT W/AUTO DIFF [HEME] DAILYLAB MAGNESIUM [CHEM] DAILYLAB 07/07/22 05:00 CBC - COMP BLD CT W/AUTO DIFF [HEME] DAILYLAB MAGNESIUM [CHEM] DAILYLAB 07/08/22 05:00 CBC - COMP BLD CT W/AUTO DIFF [HEME] DAILYLAB MAGNESIUM [CHEM] DAILYLAB Subjective - Subjective Patient Reports: Headache (Migraine headache started this morning) Objective Vital Signs: Vital Signs - 24 hr 07/04/22 07/05/22 07/05/22 15:15 00:55 08:22 Temperature 36.9 C 36.8 C 36.8 C Heart Rate [ 84 89 Monitoring electrodes] Heart Rate [ 85 Radial] Respiratory 16 20 Rate Blood Pressure 138/83 H 147/93 H 134/84 H [Right Brachial artery] O2 Saturation 95 97 95 07/05/22 14:00 Temperature 36.4 C L Heart Rate [ 70 Monitoring electrodes] Heart Rate [ Radial] Respiratory 16 Rate Blood Pressure 132/85 H [Right Brachial artery] O2 Saturation 94 Oxygen O2 Source Room air I&O (Last 24 Hrs): Intake and Output Totals x24h 07/03/22 07/04/22 07/05/22 23:59 23:59 23:59 Intake Total 4450.0 3111 2479.167 Balance 4450.0 3111 2479.167 General: Alert, Oriented x3 HEENT: Atraumatic, Other (Prefers a dark room today due to migraine) Neck: Supple Neuro: Alert, Non Focal Cardiovascular: Regular rate Respiratory: No respiratory distress Abdomen: Soft Extremities: Other (No redness, no swelling around R knee or above in thigh, has bandage over small R lateral knee wound, other scars with sutures are clean and dry and not swollen) - Results Results: Laboratory Results WBC 17.6 x10^3/uL (4.8-10.8) H 07/05/22 05:45 RBC 3.46 10^6/uL (4.20-5.40) L 07/05/22 05:45 Hgb 10.1 g/dL (12.0-16.0) L 07/05/22 05:45 Hct 31.6 % (37.0-47.0) L 07/05/22 05:45 MCV 91.3 fL (81.0-99.0) 07/05/22 05:45 MCH 29.2 pg (27.0-31.0) 07/05/22 05:45 MCHC 32.0 g/dL (32.0-36.0) 07/05/22 05:45 RDW 15.1 % (12.0-15.0) H 07/05/22 05:45 Plt Count 264 10^3/uL (130-450) 07/05/22 05:45 MPV 9.8 fL (7.9-10.8) 07/05/22 05:45 Neut # (Auto) Not Reportable 07/05/22 05:45 Lymph # (Auto) Not Reportable 07/05/22 05:45 Bollinger # (Auto) Not Reportable 07/05/22 05:45 Eos # (Auto) Not Reportable 07/05/22 05:45 Baso # (Auto) Not Reportable 07/05/22 05:45 Absolute Nucleated RBC Not Reportable 07/05/22 05:45 Total Counted 100 07/05/22 05:45 Band Neuts % (Manual) 14 % (0-10) H 07/05/22 05:45 Reactive Lymphs % (Man) 4 % 07/05/22 05:45 Abnorm Lymph % (Manual) 0 % 07/05/22 05:45 Metamyelocytes % 2 % (-0) H 07/04/22 05:57 Myelocytes % 4 % (-0) H 07/05/22 05:45 Nucleated RBC % Not Reportable 07/05/22 05:45 Neutrophils # (Manual) 9.7 10^3/uL (1.5-6.6) H 07/05/22 05:45 Lymphocytes # (Manual) 5.1 10^3/uL (1.5-3.5) H 07/05/22 05:45 Monocytes # (Manual) 0.7 10^3/uL (0.0-1.0) 07/05/22 05:45 Eosinophils # (Manual) 1.4 10^3/uL (0-0.7) H 07/05/22 05:45 Basophils # (Manual) 0.0 10^3/uL (0-0.1) 07/05/22 05:45 Differential Comment MANUAL DIFFERENTIAL 07/05/22 05:45 Manual Slide Review Indicated 07/05/22 05:45 WBC Morphology NORMAL APPEARANCE (NORMAL) 07/01/22 04:25 Platelet Estimate NORMAL (130-450,000) (NORMAL) 07/04/22 05:57 Platelet Morphology NORMAL APPEARANCE (NORMAL) 07/01/22 04:25 RBC Morph Micro Appear NORMAL APPEARANCE (NORMAL) 07/04/22 05:57 Bld Gas Analysis Time 1251 06/30/22 12:45 Sample Site LEFT RADIAL 06/30/22 12:45 ABG pH 7.46 (7.35-7.45) H 06/30/22 12:45 ABG pCO2 20 mmHg (34-45) L* 06/30/22 12:45 ABG pO2 72 mmHg (80-100) L 06/30/22 12:45 ABG HCO3 14.1 mmol/L (22.0-26.0) L 06/30/22 12:45 ABG Total CO2 14.8 MMOL/L (21.0-29.0) L 06/30/22 12:45 ABG O2 Saturation 96 % (94-98) 06/30/22 12:45 ABG Base Excess -7.3 mmol/L (-2.0-3.0) L 06/30/22 12:45 Joe Test POSITIVE 06/30/22 12:45 VBG pH 7.379 (7.31-7.41) 07/03/22 05:24 Ionized Calcium 1.09 mmol/L (1.15-1.33) L 07/03/22 05:24 Room Air YES 06/30/22 12:45 Sodium 139 mmol/L (135-145) 07/05/22 05:45 Potassium 3.2 mmol/L (3.5-5.0) L 07/05/22 05:45 Chloride 107 mmol/L (101-111) 07/05/22 05:45 Carbon Dioxide 25 mmol/L (21-32) 07/05/22 05:45 Anion Gap 7.0 (6-13) 07/05/22 05:45 BUN 5 mg/dL (6-20) L 07/05/22 05:45 Creatinine 0.5 mg/dL (0.4-1.0) 07/05/22 05:45 Estimated GFR (MDRD) 145 (>89) 07/05/22 05:45 Glucose 105 mg/dL (70-100) H 07/05/22 05:45 Lactic Acid 1.9 mmol/L (0.5-2.2) 06/30/22 18:40 Calcium 7.6 mg/dL (8.5-10.3) L 07/05/22 05:45 Ionized Calcium YES 06/30/22 18:15 Phosphorus 1.9 mg/dL (2.5-4.6) L 07/03/22 05:24 Magnesium 1.8 mg/dL (1.7-2.8) 07/05/22 05:45 Total Bilirubin 2.9 mg/dL (0.2-1.0) H 07/02/22 03:30 AST 31 IU/L (10-42) 07/02/22 03:30 ALT 35 IU/L (10-60) 07/02/22 03:30 Alkaline Phosphatase 75 IU/L (42-121) 07/02/22 03:30 Troponin I High Sens 4.6 ng/L (2.3-14.8) 06/29/22 23:34 C-Reactive Protein 3.0 mg/dL (0-1.0) H 06/29/22 08:52 Total Protein 4.7 g/dL (6.7-8.2) L 07/02/22 03:30 Albumin 2.2 g/dL (3.2-5.5) L 07/02/22 03:30 Globulin 2.5 g/dL (2.1-4.2) 07/02/22 03:30 Albumin/Globulin Ratio 0.9 (1.0-2.2) L 07/02/22 03:30 Lipase 28 U/L (22-51) 06/29/22 08:52 Procalcitonin 16.16 ng/mL (<0.5) H* 06/30/22 07:17 Urine Color DARK YELLOW 06/29/22 16:20 Urine Clarity HAZY (CLEAR) 06/29/22 16:20 Urine pH 5.5 PH (5.0-7.5) 06/29/22 16:20 Ur Specific [place] 1.025 (1.002-1.030) 06/29/22 16:20 Urine Protein TRACE mg/dL (NEGATIVE) 06/29/22 16:20 Urine Glucose (UA) NEGATIVE mg/dL (NEGATIVE) 06/29/22 16:20 Urine Ketones TRACE mg/dL (NEGATIVE) 06/29/22 16:20 Urine Occult Blood NEGATIVE (NEGATIVE) 06/29/22 16:20 Urine Nitrite POSITIVE (NEGATIVE) H 06/29/22 16:20 Urine Bilirubin MODERATE (NEGATIVE) H 06/29/22 16:20 Urine Urobilinogen 1 (NORMAL) E.U./dL (NORMAL) 06/29/22 16:20 Ur Leukocyte Esterase NEGATIVE (NEGATIVE) 06/29/22 16:20 Urine RBC 0-5 /HPF (0-5) 06/29/22 16:20 Urine WBC 0-3 /HPF (0-5) 06/29/22 16:20 Ur Squamous Epith Cells FEW Squamous (<= Few) 06/29/22 16:20 Urine Bacteria Moderate /HPF (None Seen) H 06/29/22 16:20 Urine Mucus Moderate Strands 06/29/22 16:20 Ur Microscopic Review INDICATED 06/29/22 16:20 Urine Culture Comments INDICATED 06/29/22 16:20 Urine HCG, Qual NEGATIVE 06/29/22 16:20 Nasal Adenovirus (PCR) NOT DETECTED 06/29/22 09:05 Nasal B. parapertussis DNA (PCR) NOT DETECTED 06/29/22 09:05 Nasal Coronavir 229E PCR NOT DETECTED 06/29/22 09:05 Nasal Coronavir HKU1 PCR NOT DETECTED 06/29/22 09:05 Nasal Coronavir NL63 PCR NOT DETECTED 06/29/22 09:05 Nasal Coronavir OC43 PCR NOT DETECTED 06/29/22 09:05 Nasal Enterovir/Rhinovir PCR NOT DETECTED 06/29/22 09:05 Nasal Influenza B PCR NOT DETECTED 06/29/22 09:05 Nasal Influenza A PCR NOT DETECTED 06/29/22 09:05 Nasal Parainfluen 1 PCR NOT DETECTED 06/29/22 09:05 Nasal Parainfluen 2 PCR NOT DETECTED 06/29/22 09:05 Nasal Parainfluen 3 PCR NOT DETECTED 06/29/22 09:05 Nasal Parainfluen 4 PCR NOT DETECTED 06/29/22 09:05 Nasal RSV (PCR) NOT DETECTED 06/29/22 09:05 Nasal Screen MRSA (PCR) NEGATIVE (NEGATIVE) 06/30/22 12:25 Nasal B.pertussis DNA PCR NOT DETECTED 06/29/22 09:05 Nasal C.pneumoniae (PCR) NOT DETECTED 06/29/22 09:05 Ronnie Human Metapneumo PCR NOT DETECTED 06/29/22 09:05 Nasal M.pneumoniae (PCR) NOT DETECTED 06/29/22 09:05 Nasal SARS-CoV-2 (PCR) NOT DETECTED 06/29/22 09:05 Stl C. diff Tox B Gene NEGATIVE (NEGATIVE) 07/04/22 00:35 Last Dose Date 07/02/2022 07/02/22 12:15 Last Dose Time 02507/02/22 12:15 Vancomycin Trough 10.4 ug/mL (10.0-20.0) 07/02/22 12:15 Sepsis Event Note (H) - Evaluation Current Stage of Sepsis: Severe sepsis Possible source of Sepsis: positive: Skin/soft tissue, Wound - Sepsis Criteria Sepsis Criteria: Recorded Temperature greater than 38.3C or Less than 36C, Recorded Heart Rate greater than 90 bpm, Recorded Respiratory Rate greater than 20, WBC count greater than 10% bands, WBC count greater than 12,000 or less than 4000, Metabolic: lactate > 2 mmol/L
[2022-07-05] MEDS: FLUoxetine 10 MG CAPSULE PO SCH (16:19)
[2022-07-05] MEDS ORDERED: UBROGEPANT 100 MG PO PRN (17:00)
[2022-07-05] MEDS: HYDROmorphone 0.5 MG/0.5 ML SYRINGE IVP PRN (22:50)
[2022-07-06 00:45] LABS: VANCOMYCIN,TROUGH 12.1 ug/mL (10.0-20.0)
[2022-07-06] MEDS: VANCOMYCIN INJ 1 GM, VANCOMYCIN INJ 500 MG in SODIUM CHLORIDE 0.9% 500 ML IV SCH ×2 (00:59→13:32)
[2022-07-06] MEDS: SODIUM CHLORIDE FLUSH 0.9% 10 ML SYRINGE IVP SCH ×4 (00:59→23:44)
[2022-07-06] MEDS: ACETAMINOPHEN 325 MG TABLET PO PRN ×3 (02:50→21:17)
[2022-07-06 05:50] LABS: EOSINOPHILS % (AUTO) 5.4 %; HCT - HEMATOCRIT 33.5 % (37.0-47.0); HGB - HEMOGLOBIN 10.8 g/dL (12.0-16.0); LYMPHOCYTES % (AUTO) 29.5 %; MEAN CORPUSCULAR HGB CONC 32.2 g/dL (32.0-36.0); MEAN CORPUSCULAR VOLUME 89.8 fL (81.0-99.0); MEAN PLATELET VOLUME 9.3 fL (7.9-10.8); MONOCYTES % (AUTO) 4.5 %; NEUTROPHILS % (AUTO) 35.5 %; PLT - PLATELET COUNT 343 10^3/uL (130-450); RED BLOOD COUNT 3.73 10^6/uL (4.20-5.40); RED CELL DISTRIBUTION WIDTH 14.4 % (12.0-15.0); WHITE BLOOD COUNT 17.8 x10^3/uL (4.8-10.8)
[2022-07-06 05:53] LABS: ABNORMAL LYMPHS % (MANUAL) 0 %
[2022-07-06 06:05] LABS: BAND NEUTROPHILS % (MANUAL) 6 %; BASOPHILS # (MANUAL) 0.2 10^3/uL (0-0.1); BASOPHILS % (MANUAL) 1 %; EOSINOPHILS # (MANUAL) 0.5 10^3/uL (0-0.7); LYMPHOCYTES # (MANUAL) 6.2 10^3/uL (1.5-3.5); LYMPHOCYTES % (MANUAL) 35 %; METAMYELOCYTES % (MANUAL) 6 %; MYELOCYTES % (MANUAL) 3 %; NEUTROPHILS # (MANUAL) 9.1 10^3/uL (1.5-6.6); NUCLEATED RBC (MANUAL) 1 %; PROMYELOCYTES % (MANUAL) 1 %
[2022-07-06 06:07] LABS: DIFFERENTIAL COMMENT MANUAL DIFFERENTIAL; PLATELET ESTIMATE, MANUAL NORMAL (130-450,000) (NORMAL); PLATELET MORPHOLOGY NORMAL APPEARANCE (NORMAL); RBC MORPHOLOGY (MULTIPLE) NORMAL APPEARANCE (NORMAL); WBC MORPHOLOGY (MULTIPLE) NORMAL APPEARANCE (NORMAL)
[2022-07-06 06:12] LABS: BUN - BLOOD UREA NITROGEN < 5 mg/dL (6-20); CALCIUM 8.2 mg/dL (8.5-10.3); CARBON DIOXIDE - CO2 29 mmol/L (21-32); CHLORIDE 105 mmol/L (101-111); CREATININE 0.6 mg/dL (0.4-1.0); GFR - MDRD 117 (>89); GLUCOSE 91 mg/dL (70-100); MAGNESIUM 1.7 mg/dL (1.7-2.8); POTASSIUM 3.6 mmol/L (3.5-5.0); SODIUM 142 mmol/L (135-145)
[2022-07-06] MEDS: LACTOBACILLUS RHAMNOSUS GG CAPSULE PO SCH (07:52)
[2022-07-06] MEDS: ENOXAPARIN 40 MG/0.4 ML SYRINGE SUBQ SCH (07:52)
[2022-07-06] MEDS: estradioL 1 MG TABLET PO SCH (07:52)
[2022-07-06] MEDS: FLUoxetine 10 MG CAPSULE PO SCH (07:52)
[2022-07-06] MEDS: IBUPROFEN 400 MG TABLET PO PRN ×2 (08:20→23:44)
[2022-07-06] MEDS ORDERED: NORETHINDRONE ACETATE 5 MG PO SCH (09:00)
--- NOTE | 2022-07-06 14:21 | PROVIDER PROGRESS NOTE ---
Subjective - Prog Note Date Prog Note Date: 07/06/22 Prog Note Time: 14:20 - Subjective Pt reports feeling: Improved Subjective: Today is the first day that she says that she does not feel "sick". She cannot describe what that means other than she feels like herself again. The aches and pains are better. Her mind is clear. Her knee is stiff and sore but it does not bother her. She is able to get up and ambulate without assist. She denies chest pain, coughing, shortness of breath. She says that she had bilateral pedal edema with the right leg worse than the left leg and both legs are better. The right ankle is still more swollen than the left ankle. The redness over her knee is completely gone. Her main concern is why is her white cell count continues to be high or rising Current Medications - Current Medications Current Medications: Active Medications Acetaminophen (Acetaminophen 325 Mg Tablet) 650 mg PO Q4HR PRN PRN Reason: Pain or Fever > 38C (100.4F) Last Admin: 07/06/22 12:54 Dose: 650 mg Calcium Carbonate/Glycine (Calcium Carbonate Chew 500 Mg Tablet) 500 mg PO TID PRN PRN Reason: INDIGESTION Last Admin: 07/02/22 13:56 Dose: 500 mg Enoxaparin Sodium (Enoxaparin 40 Mg/0.4 Ml Syringe) 40 mg SUBQ DAILY [facility] Last Admin: 07/06/22 07:52 Dose: 40 mg Estradiol (Estradiol 1 Mg Tablet) 1 mg PO DAILY [facility] Last Admin: 07/06/22 07:52 Dose: 1 mg Fluoxetine HCl (Fluoxetine 10 Mg Capsule) 20 mg PO DAILY [facility] Last Admin: 07/06/22 07:52 Dose: 20 mg Hydromorphone HCl (Hydromorphone 0.5 Mg/0.5 Ml Syringe) 0.5 mg IVP Q2H PRN PRN Reason: Breakthrough Pain Last Admin: 07/05/22 22:50 Dose: 0.5 mg Vancomycin HCl 1 gm/Vancomycin HCl 500 mg/ Sodium Chloride 500 mls @ 250 mls/hr IV Q12H [facility] Last Admin: 07/06/22 13:32 Dose: 250 mls/hr Ibuprofen (Ibuprofen 400 Mg Tablet) 400 mg PO Q6HR PRN PRN Reason: Pain or Fever > 38C (100.4F) Last Admin: 07/06/22 08:20 Dose: 400 mg Lactobacillus Rhamnosus (Lactobacillus Rhamnosus Gg Capsule) 1 cap PO DAILY [facility] Last Admin: 07/06/22 07:52 Dose: 1 cap Loperamide HCl (Loperamide 2 Mg Capsule) 2 mg PO QID PRN PRN Reason: Diarrhea Last Admin: 07/05/22 20:07 Dose: 2 mg Multi-Ingredient Ointment (Zinc Oxide 20% Oint 30 Gm Tube) 1 applic TOP PRN PRN PRN Reason: Skin Care Ondansetron HCl (Ondansetron 4 Mg/2 Ml Vial) 4 mg IVP Q6HR PRN PRN Reason: Nausea / Vomiting Last Admin: 07/03/22 12:15 Dose: 4 mg Ubrogepant [ Ubrelvy] 100 Mg Tablet 100 each PO DAILY PRN PRN Reason: MIGRAINE Norethindrone Acetate [ Norethindrone Acetate] 5 Mg Tablet 1 each PO DAILY [facility] Last Admin: 07/06/22 09:20 Dose: Not Given Sodium Chloride (Sodium Chloride Flush 0.9% 10 Ml Syringe) 10 ml IVP PRN PRN PRN Reason: NEEDED PER PROVIDER ORDERS Last Admin: 07/05/22 11:09 Dose: 10 ml Sodium Chloride (Sodium Chloride Flush 0.9% 10 Ml Syringe) 10 ml IVP 0100,0900,1700 [facility] Last Admin: 07/06/22 10:24 Dose: 10 ml Sodium Chloride (Sodium Chloride Flush 0.9% 10 Ml Syringe) 20 ml IVP PRN PRN PRN Reason: After Blood Draw Last Admin: 07/05/22 09:33 Dose: 20 ml Fluoxetine HCl [Prozac] 20 mg PO DAILY 09/01/21 Galcanezumab-Gnlm [Emgality Syringe] 120 mg SQ .Q28D 09/01/21 Leuprolide Acetate [Lupron Depot] 11.25 mg IM .[id number] 09/01/21 Ubrogepant [Ubrelvy] 100 mg PO ONCE PRN 09/01/21 Cyclobenzaprine [Flexeril] 5 mg PO TID PRN 06/29/22 Norethindrone Acetate 5 mg PO DAILY 06/29/22 estradioL [Estrace] 1 mg PO DAILY 06/29/22 hydrOXYzine pamoate [Hydroxyzine Pamoate] 25 mg PO Q6H PRN 06/29/22 oxyCODONE [Roxicodone] 5 mg PO Q4HR PRN 06/29/22 Objective - Vital Signs/Intake & Output Reviewed Vital Signs: Yes Vital Signs: Vital Signs x48h Temp Pulse Resp BP Pulse Ox 07/06/22 08:00 97 C H 78 16 139/85 H 94 Intake & Output: Intake & Output 07/03/22 07/04/22 07/05/22 07/06/22 23:59 23:59 23:59 23:59 Intake Total 4450.0 3111 3580.000 1100 Balance 4450.0 3111 3580.000 1100 - Objective General Appearance: positive: No acute distress (5 feet 3 inches tall, 118 kg), Alert, Other (Significant other and male relative at the bedside) Eyes Bilateral: positive: PERRL, EOMI ENT: positive: No signs of dehydration Neck: positive: No JVD. negative: Stiff neck Respiratory: positive: No respiratory distress. negative: Wheezes, Rales, Rhonchi Cardiovascular: positive: Regular rate & rhythm Abdomen: positive: Non-tender, Nml bowel sounds, No distention, Other (Unable to assess for organomegaly due to pannus size) Skin: positive: Warm, Dry, Other (The skin of the right knee is not red. There is no heat. The pen drawing around the knee shows complete recession of any cellulitis) Extremities: positive: Other (Over the right/lateral upper aspect of the knee There is a healed eschar. She says that was some type of cavity that was draining on admission. The vertical midline incision over the knee is closed, healed, without any redness or draining. She has Steri-Strips in the anserine bursa region.) Neurologic/Psychiatric: positive: Oriented x3, CN's nml (2-12), Motor nml - Lab Results Fish Bones: 07/06/22 05:42 07/06/22 05:42 Other Labs: Lab Results x24hrs 07/06/22 07/06/22 07/06/22 Range/Units 05:42 05:42 00:30 WBC 17.8 H (4.8-10.8) x10^3/uL RBC 3.73 L (4.20-5.40) 10^6/uL Hgb 10.8 L (12.0-16.0) g/dL Hct 33.5 L (37.0-47.0) % MCV 89.8 (81.0-99.0) fL MCH 29.0 (27.0-31.0) pg MCHC 32.2 (32.0-36.0) g/dL RDW 14.4 (12.0-15.0) % Plt Count 343 (130-450) 10^3/uL MPV 9.3 (7.9-10.8) fL Neut # (Auto) Not Reportable Lymph # (Auto) Not Reportable Gosper # (Auto) Not Reportable Eos # (Auto) Not Reportable Baso # (Auto) Not Reportable Absolute Nucleated RBC Not Reportable Total Counted 100 Band Neuts % (Manual) 6 (0 - 10) % Abnorm Lymph % (Manual) 0 % Metamyelocytes % 6 H ( - 0) % Myelocytes % 3 H ( - 0) % Promyelocytes % 1 H ( - 0) % Nucleated RBC % Not Reportable Neutrophils # (Manual) 9.1 H (1.5-6.6) 10^3/uL Lymphocytes # (Manual) 6.2 H (1.5-3.5) 10^3/uL Monocytes # (Manual) 0.0 (0.0-1.0) 10^3/uL Eosinophils # (Manual) 0.5 (0-0.7) 10^3/uL Basophils # (Manual) 0.2 H (0-0.1) 10^3/uL Nucleated RBCs 1 % Differential Comment MANUAL DIFFERENTIAL WBC Morphology NORMAL APPEARANCE (NORMAL) Platelet Estimate NORMAL (130-450,000) (NORMAL) Platelet Morphology NORMAL APPEARANCE (NORMAL) RBC Morph Micro Appear NORMAL APPEARANCE (NORMAL) Sodium 142 (135-145) mmol/L Potassium 3.6 (3.5-5.0) mmol/L Chloride 105 (101-111) mmol/L Carbon Dioxide 29 (21-32) mmol/L Anion Gap 8.0 (6-13) BUN < 5 L (6-20) mg/dL Creatinine 0.6 (0.4-1.0) mg/dL Estimated GFR (MDRD) 117 (>89) Glucose 91 (70-100) mg/dL Calcium 8.2 L (8.5-10.3) mg/dL Magnesium 1.7 (1.7-2.8) mg/dL Last Dose Date 07/05/22 Last Dose Time 1521 Vancomycin Trough 12.1 (10.0-20.0) ug/mL Blood cultures from June 29 are negative Urine culture from June 29 is without gross Stool culture from June 29 is without any gross Blood culture from June 30 without any growth Superficial wound culture of right knee has staff aureus resistant to penicillin, erythromycin, clindamycin ABX Reporting Has patient been on IV antibiotics over the past 48 hours?: Yes Sepsis Event Note (H) - Evaluation Current Stage of Sepsis: Severe sepsis Possible source of Sepsis: positive: Skin/soft tissue, Wound - Sepsis Criteria Sepsis Criteria: Recorded Temperature greater than 38.3C or Less than 36C, Recorded Heart Rate greater than 90 bpm, Recorded Respiratory Rate greater than 20, WBC count greater than 10% bands, WBC count greater than 12,000 or less than 4000, Metabolic: lactate > 2 mmol/L Assessment/Plan - Problem List (1) Cellulitis Impression: On Day 2 of this hospitalization, her right knee, lateral aspect, became red and warm. CT of the knee showed cellulitis, no joint involvement. It caused sepsis, and she was in the ICU. After antibiotics were broadened, she slowly improved. She was then able to describe events that occurred after her knee surgery: 72 hours after her arthroscopy, when she took off the knee bandages, she noticed 4 scars, and one looked like a punch hole. She had been told there would only be 3 scars therefore she did not know what the punch hole on the lateral right knee was and this later started to leak clear fluid. Then the morning of this admission, she remembers the leakage became purulent. Her blood cultures are all negative to date White blood count and left shift has worsened even though she has improved with no redness or heat on exam today. So we obtain MRI of the right knee when WBC darlene, for better visualization and concern that there is an abscess under the skin and possibly in the joint. The MRI was read out as cellulitis and no internal infection of the joint. The leakage from the "punch hole" area, where it looked like a pimple with a "candelaria", has stopped. She pulled off the bandaid and there is only eschar. . Cx of that drainage was sent and grew Staph. The reddened area around the hole has diminished entirely. blood cultures are negative sensitivities of superficial skin is not MRSA change to po BActrim now that she has completed abx since 06/29 and no fevers. Will see if WBC goes up (2) Staph aureus infection On 07/03 the "candelaria", on the right lateral aspect of the operated R knee, started draining. A culture of the fluid was sent. Gram stain showed white cells and GPCocci. That wound culture has been identified is growing Staph aureus. Resistant to PCN but sensitive of oxacillin. Plan: PO bactrim (3) Status post arthroscopic knee surgery Conclusion/Plan: This surgery was done at a different hospital. Clinically, the knee did not look like the source of the fever when she presented to the ED; it was her POD #5. This was also the impression of her orthopedist after phone description and discussion with the ED provider. On Day 2 here,the area of the lateral knee became red and warm, which was a new finding. After starting antibx for cellulitis, the redness has lessened in area, but we saw a new "candelaria" pimple in its center. Since 07/03 that wound opened and is draining. Patient has continued to improve her ambulation in the last 3 days, than she has since surgery, with less edema of legs and ankles. Plan: Continue antibiotics,Tylenol prn, Motrin prn, ice packs prn. DC in am after po abx. (4) Migraine Impression: 07/05 she started to have a headache that is her typical migraine, she told her RN. She takes Ubrelvy at home which we do not have on formulary in our pharmacy here Plan: Imitrex as needed Will order her Ubrelvy, as patient's own med, if she has it here, to use prn migraines (5) Diarrhea Impression: This patient had N/V/D at presentation. A stool for C. diff was sent at admission and was neg. Also bacterial cx of stool were done and are neg for Shigella, Slamonella, etc. Those sx all resolved as her sepsis was treated. Then her diarrhea recurred on 07/03 and Telemedicine was called by RN requesting antidiarrheal treatment, because greater than 10 liquid BMs were reported. C. diff was tested again and has come back neg Plan: Continue prn Imodium Will continue probiotics (6) Sleep Apnea Conclusion/Plan: This was witnessed by our RN when she was in the ICU and she desaturated briefly. The reports she snores and has many apneic episodes that he has witnessed. She very likely has obesity-hypoventilation syndrome Plan: She will need an outpatient sleep study. When I told the pt, she said she already has had a plan to request a sleep study from her PCP. (7) Morbid obesity with body mass index (BMI) of 40.0 to 44.9 in adult Conclusion/Plan: Her BMI is 43. This made venipuncture very difficult. She still has a central iv line, which was placed when she was septic in the ICU. (8) Severe sepsis Impression: Resolved She had a fever, an elevated L.A. was tachycardic and tachypneic yesterday. WBC darlene from normal to 26. Procalcitonin darlene from 10 yesterday to 16 Even on iv fluids, the L.A. darlene 4>> 3.7>> 4.4, before improving. He was moved to the ICU. A central line needed to be inserted by Anesthesia. nShe received greater than 30 cc/kg IV fluids for a day, this was tapered down, her LA improved, discontinued her Phelps, we upgraded her critical condition to stable and she was moved out of the ICU (9) Teteny from hypocalcemia Impression: Resolved Patient had neck and spine torticolus on Day 2 and we found she had acute hypocalcemia, Ca dropped down to 7.1 with a normal albumin. This is seen with severe sepsis. She was given several IV calcium gluconate riders over 15-minute infusions until her symptoms resolved. We also needed to correct low magnesium level and phosphorus levels (10) Tachypnea Resolved She started to become tachypneic with her fever and also at that point described new mid back pain, between the shoulder blades, rated 10/10. She could not tell if it was pleuritic. She has never had it before.Concern is that this is PE after undergoing orthopedic surgery and being more immobilized than normal She was transferred to the ICU. ABG was done, did not show acidosis or hypoxemia. Because of recent immobilization, concern for an acute PE, therefore we started Lovenox 110 mg BID, empirically for a poss PE. She underwent a CTA later that night, which did not show a PE nor any thoracic aortic pathology. BID Lovenox was stopped. We got an Echo to eval chamber sizes and function. This showed normal chamber sizes, normal LV and RV contractility (11) Bacteriuria Impression: There was no UA done at admission. UA was done after she was placed in Observation (for presumed viral gastroenteritis), and was quite remarkable for elevated nitrates and had moderate white blood cells and moderate bacteria, culture was indicated. We initially thought that a UTI was the cause of her sepsis, and started Ceftiaxone. The final urine culture grew no bacteria. (12) Nausea, vomiting Resolved The presentation sounded very much like a viral gastroenteritis. She did not have abdominal imaging done in the ED. CT abd/pelvis was done after she was (initially) placed in Observation. The CT was unremarkable. As her sepsis resolved, her nausea and vomiting improved. She has been able to report that she gets nausea and vomiting whenever she has pain, whenever she is really sick, it even happened when her Orthopod was moving her patella to examine it, which caused pain. Qualifiers: Site of cellulitis of extremity: lower extremity Laterality: right (13) Hypokalemia Conclusion/Plan: Resolved with K replacement. Likely caused by her vomiting then by her diarrhea Plan: Follow BMP daily
[2022-07-06] MEDS: HYDROmorphone 0.5 MG/0.5 ML SYRINGE IVP PRN ×2 (16:51→19:22)
[2022-07-06] MEDS: SULFAMETH/TRIMETH DS 800/160 MG TABLET PO SCH (21:17)
[2022-07-07] MEDS: HYDROmorphone 0.5 MG/0.5 ML SYRINGE IVP PRN (02:43)
[2022-07-07 06:12] LABS: BASOPHILS % (AUTO) 1.1 %; EOSINOPHILS % (AUTO) 4.7 %; HCT - HEMATOCRIT 34.6 % (37.0-47.0); HGB - HEMOGLOBIN 11.1 g/dL (12.0-16.0); LYMPHOCYTES % (AUTO) 25.4 %; MEAN CORPUSCULAR HEMOGLOBIN 29.1 pg (27.0-31.0); MEAN CORPUSCULAR HGB CONC 32.1 g/dL (32.0-36.0); MEAN CORPUSCULAR VOLUME 90.6 fL (81.0-99.0); MEAN PLATELET VOLUME 9.1 fL (7.9-10.8); MONOCYTES % (AUTO) 6.2 %; NEUTROPHILS % (AUTO) 42.4 %; PLT - PLATELET COUNT 435 10^3/uL (130-450); RED BLOOD COUNT 3.82 10^6/uL (4.20-5.40); RED CELL DISTRIBUTION WIDTH 14.2 % (12.0-15.0); WHITE BLOOD COUNT 17.8 x10^3/uL (4.8-10.8)
[2022-07-07 06:16] LABS: ABNORMAL LYMPHS % (MANUAL) 0 %
[2022-07-07 06:27] LABS: BAND NEUTROPHILS % (MANUAL) 2 %; BASOPHILS # (MANUAL) 0.2 10^3/uL (0-0.1); BASOPHILS % (MANUAL) 1 %; EOSINOPHILS # (MANUAL) 0.9 10^3/uL (0-0.7); LYMPHOCYTES # (MANUAL) 5.3 10^3/uL (1.5-3.5); LYMPHOCYTES % (MANUAL) 30 %; METAMYELOCYTES % (MANUAL) 4 %; MONOCYTES # (MANUAL) 0.9 10^3/uL (0.0-1.0); MYELOCYTES % (MANUAL) 9 %; NEUTROPHILS # (MANUAL) 8.2 10^3/uL (1.5-6.6)
[2022-07-07 06:28] LABS: DIFFERENTIAL COMMENT MANUAL DIFFERENTIAL; PLATELET ESTIMATE, MANUAL NORMAL (130-450,000) (NORMAL); PLATELET MORPHOLOGY NORMAL APPEARANCE (NORMAL); RBC MORPHOLOGY (MULTIPLE) 1+ POLYCHROMASIA (NORMAL); WBC MORPHOLOGY (MULTIPLE) NORMAL APPEARANCE (NORMAL)
[2022-07-07] MEDS: SULFAMETH/TRIMETH DS 800/160 MG TABLET PO SCH (07:54)
[2022-07-07] MEDS: FLUoxetine 10 MG CAPSULE PO SCH (07:54)
[2022-07-07] MEDS: LACTOBACILLUS RHAMNOSUS GG CAPSULE PO SCH (07:54)
[2022-07-07] MEDS: estradioL 1 MG TABLET PO SCH (07:54)
[2022-07-07] MEDS: ENOXAPARIN 40 MG/0.4 ML SYRINGE SUBQ SCH (07:55)
[2022-07-07] MEDS: SODIUM CHLORIDE FLUSH 0.9% 10 ML SYRINGE IVP SCH (07:57)
[2022-07-07 08:49] VITALS: BP 131/77
[2022-07-07] MEDS: IBUPROFEN 400 MG TABLET PO PRN (09:08)
--- NOTE | 2022-07-07 10:22 | Discharge Plan ---
Discharge Plan Problem Reviewed?: Yes Disposition: Home, Self Care Condition: Stable Prescriptions: Sulfamethox/Trimeth 800/160 [Bactrim Ds] 1 tablet PO BID 7 Days #14 tablet Diet: Regular Activity Restrictions: Wt Bearing as Tolerated Shower Restrictions: No Driving Restrictions: Yes (no driving until knee is more mobile) Assistance Devices: Crutches Weight Bearing: Full Weight Health Concerns: You came to our emergency room with nausea vomiting and diarrhea with a fever on postoperative day #5 after having right knee arthroscopic surgery. You also had a small pimple area in the right side of the knee on the upper part of the kneecap. We found you to then have a very low calcium that resulted in you having had any. The infection became so severe that you were septic and needed to be transferred to the ICU temporarily. In the meantime the wound in your knee drained spontaneously. Cultures of the knee showed staph aureus on the wound that was draining that was considered MRSA. Blood cultures on June 29, and June 30 were negative. You been placed on antibiotic therapy for MRSA and you responded very well. The only thing that is still a problem is that your white cell count continues to be mildly elevated. When you were sick with sepsis your white cell count went from 6-27,000. You have been steadily at approximately 17,000 since July 04 without any change. But you do not have a fever, your heart rate is normal. We did an inflammatory marker called C- reactive protein and high normal is 1.0. You are only 1.1 indicating that inflammation was present but not severe. As such we think you are safe to go home. We would like you to take 7 more days of an antibiotic by mouth. Plan of Treatment: 1. Please see your orthopedic surgeon in follow-up.Continue the instructions he gave you at discharge from your knee surgery 2. I will be sending you home on Bactrim double strength 1 tablet twice a day for 1 more week 3. Take a probiotic to help with any diarrhea 4. While you were here you complained of palpitations intermittently. But no shortness of breath, vital signs are normal, and we would ask you to follow-up with your primary care provider to get an event monitor to monitor your heart. 5. You are scheduled to see outpatient physical therapy tomorrow on July 08. Please make sure you keep that appointment. 6. There are no further wound care orders that we need you to do on your knee. The Steri-Strips are coming off. The white pimple area on the right side of your knee is now cleared up. You can take a shower, and keep it clean. Care Goals: To resume normal ambulation using your right knee. To complete antibiotics for an infection of the right knee skin. The joint was not involved. Assessment: Patient is alert, oriented. Her significant other has been a strong advocate and in the room with her. She is able to follow instructions and will do so she says Follow-Up Care: Outpatient Rehab - PT No Smoking: If you smoke, Please STOP! Call for help. Follow-up with: Tari Mullen ARNP [Primary Care Provider] -
--- NOTE | 2022-07-07 10:49 | DISCHARGE SUMMARY ---
"Discharge Summary Admit Date: 06/29/22 Discharge Date: 07/07/22 Discharging Provider: Chantale Duron MD Primary Care Provider: TULIO Clark Code Status: Attempt Resuscitation Condition at Discharge: Stable Discharge Disposition: 01 Home, Self Care - DIAGNOSES Discharge Diagnoses with Status of Each Condition: 1. Severe sepsis 2. Cellulitis right lower extremity 3. complication, postoperative infection 4. MRSA 5. Obstructive sleep apnea 6. Tetany from hypocalcemia 7. Bacteriuria 8. Migraine 9. Diarrhea 10. Hypokalemia 11. Nausea and vomiting 12.. morbid obesity with BMI of 40 - HPI History of Present Illness: This is a 32-year-old white female with obesity (BMI 43), who is postop day 5 after knee arthroscopy done by Dr. Oreilly. Last night she developed nausea and vomiting and today a fever and presented to the emergency room with these complaints. She was found to have a fever of 104 Fahrenheit and tachycardic at rest with heart rate of 130, BP stable however. Her white count is normal but she has a very elevated lactic acid of 4.0 and elevated procalcitonin level of 10. She was given Toradol for pain, iv Offirmev for her fever and started on IV fluids. Blood cultures have been taken. She got a dose of Ceftriaxone empirically. The knee which had arthroscopy does not show signs of cellulitis without any red streaks, excessive swelling or lymph node enlargement, but it is warm. The ED doctor spoke to Dr. Oreilly who stated that the knee would look much more red and angry if it was the cause of her fever. Her viral markers are all negative. The patient was presented to the Hospitalist team for discussion on further management of her febrile illness, nausea and vomiting, which may be a viral syndrome, but also with elevated markers of a bacterial infection and possible sepsis. She is being placed in Observation status. - Past Medical History Cardiovascular: reports: None Respiratory: reports: None Neuro: reports: Migraines Endocrine/Autoimmune: reports: None GI: reports: None [employer]: reports: Endometriosis : reports: None HEENT: reports: None Psych: reports: Depression Musculoskeletal: reports: None Derm: reports: None MRSA Hx?: Yes - Past Surgical History Ortho: reports: Arthroscopic surgery /[employer]: reports: section - CONSULTS | PROCEDURES Procedures: 1. Echocardiogram due to tachycardia and sepsis showed underlying rhythm that was tachycardic. Left ventricle size normal. Left ventricular wall thickness normal. Overall left ventricular systolic function normal with an ejection fraction of 65 to 70%. No valve abnormality. 2. Blood cultures on June 29 and June 30 were without growth after 5 days 3. Stool cultures had no Campylobacter, Salmonella, Shigella, or E. coli Shiga toxin. 4. Wound culture from right knee pimple grew out MRSA 5. Abdomen pelvis CT done for nausea and vomiting had no dilated bowel, no free fluid, no hydronephrosis and no kidney stones. She had an incidental left lower lobe pulmonary nodule is 0.4 cm. No hernias. 6. Chest thorax CT angiogram done for mid back pain had no pulmonary embolus, no aneurysm or dilation of aorta 7. Lower extremity CT had small joint effusion. Moderate diffuse subcutaneous fat stranding. It was felt to be postsurgical sequela without an acute osseous process. 8. Knee MRI with postsurgical changes from surgical repair of medial patellofemoral ligament. Slight lateral subluxation of the patella. No acute fracture or dislocation. No osteomyelitis. Suggestion of extensive cellulitis around the right knee. No discrete drainable fluid collection. Moderate right knee effusion. Tiny Smith's cyst. The thickened patellofemoral ligament represented postsurgical changes. Thickened proximal MCL likely represented postsurgical changes. Cruciate ligaments were intact. No evidence of meniscal tear - HOSPITAL COURSE Hospital Course: She was switched from observation status to inpatient status as her infection progressed to frankie severe sepsis. Source of her sepsis was a right knee cellulitis around the sites of arthroscopic surgery. The skin of the knee was red, hot to touch. A small pimple area in the upper right kneecap area progressed to open drainage. Culture was obtained and was MRSA of that area. Blood cultures done on June 29 and June 30 were negative. The nausea and vomiting progressed to diarrhea and diarrhea was cultured and was negative. Empiric antibiotics were started to cover for possible cellulitis and she was covered with vancomycin. By July 06, you could see where the skin marker demarcated the extent of her cellulitis which was a good 3 to 4 cm around the knee. All of the redness and heat had faded and she was left with a nondraining black pimple area over the right upper knee. Steri-Strips over her arthroscopic insertion sites that were clean, dry and not draining. No effusion and no ballottement of the knee. The knee cannot be fully extended but she is working with physical therapy and they said she is progressed well. They believe she is stable enough to continue with outpatient physical therapy tomorrow. During her stay she was observed to have apnea and pauses in her respiration. She says she has an outpatient appointment with sleep lab. She developed severe tetany from hypocalcemia which resolved once the calcium was supplemented. Migraine headache was given Imitrex but she did not like Imitrex. Hypokalemia was supplemented. And her initial nausea and vomiting resolved as her sepsis resolved. She continues to have an elevated white cell count of 17.8 thousand. However C-reactive protein is only 1.1. On the differential of her white cell count she has metamyelocytes and myelocytes. I have asked for a pathology smear review and that is pending at the time of discharge. She is now discharged in stable condition to complete 7 more days of p.o. Bactrim. Greater than 30 minutes was spent coordinating discharge. At discharge she is alert, oriented, significant other at the bedside who has been sleeping here in the hospital to stay by her side. Temperature is 36.6. Heart rate 91. Blood pressure 131/77. Respirations 16. 93% on room air. She is 5 foot 3 inches tall, weighs 118.5 kg. Lungs are clear, no respiratory distress. Regular rate and rhythm. She is complaining of palpitations off and on. However she is not on telemetry. I recommended she get an event monitor in the outpatient setting. Abdomen is soft, nontender with normal bowel sounds. Last bowel movement was yesterday. Extremities have trace edema of the left ankle and foot. 1+ edema of the right ankle and foot. Overall she says that she had severe edema when she came into the hospital and most of that is gone away except for the right ankle. Both calves are soft, Diego negative. She is ambulating in the room without an assist but using durable medical equipment. Neurologically she is alert, oriented, able to follow commands. No deficit. I have asked her to follow-up with her orthopedic surgeon. She also needs to follow-up with outpatient PT. She needs to follow-up with her primary care provider to make sure a CBC shows a diminishing white cell count and to make sure that the peripheral smear is reviewed. Other than Bactrim double strength, there is no change in her medication. - ALLERGIES Allergies/Adverse Reactions: Allergies Allergy/AdvReac Type Severity Reaction Status Date / Time sumatriptan AdvReac Unknown Verified 07/05/22 17:13 - MEDICATIONS Home Medications: Ambulatory Orders Medication Instructions Recorded Confirmed Fluoxetine HCl [Prozac] 20 mg PO DAILY 09/01/21 06/29/22 Galcanezumab-Gnlm [Emgality 120 mg SQ .Q28D 09/01/21 06/29/22 Syringe] Leuprolide Acetate [Lupron Depot] 11.25 mg IM .[id number] 09/01/21 06/29/22 Ubrogepant [Ubrelvy] 100 mg PO ONCE PRN 09/01/21 06/29/22 Cyclobenzaprine [Flexeril] 5 mg PO TID PRN 06/29/22 06/29/22 Norethindrone Acetate 5 mg PO DAILY 06/29/22 06/29/22 estradioL [Estrace] 1 mg PO DAILY 06/29/22 06/29/22 hydrOXYzine pamoate [Hydroxyzine 25 mg PO Q6H PRN 06/29/22 06/29/22 Pamoate] oxyCODONE [Roxicodone] 5 mg PO Q4HR PRN 06/29/22 06/29/22 Calcium Carbonate [Tums (Calcium 500 mg PO TID PRN tab 07/07/22 Carbonate 500mg)] Ibuprofen [Motrin] 400 mg PO Q6HR PRN tab 07/07/22 Lactobacillus Rhamnosus GG 1 cap PO DAILY cap 07/07/22 [Culturelle] Sulfamethox/Trimeth 800/160 1 tab PO BID #14 tab 07/07/22 [Bactrim Ds] Sulfamethox/Trimeth 800/160 1 tablet PO BID 7 Days #14 tablet 07/07/22 [Bactrim Ds] - LABS Result Diagrams: 07/07/22 05:59 07/06/22 05:42 - SEPSIS Current Stage of Sepsis: Severe sepsis Possible source of Sepsis: Skin/soft tissue, Wound Sepsis Criteria: Recorded Temperature greater than 38.3C or Less than 36C, Recorded Heart Rate greater than 90 bpm, Recorded Respiratory Rate greater than 20, WBC count greater than 10% bands, WBC count greater than 12,000 or less than 4000, Metabolic: lactate > 2 mmol/L"
== END 2022-07-07 11:40 | disposition home or self-care (01) | DRG 862 ==
LOC: ED 08:24 → MS2 13:40 → OBSVTOIN 06-30 08:48 → ICU 06-30 12:13 → MS2 07-02 17:16
PROVIDERS: ADMIT Internal Medicine; ATTEND Specialist
PROC: 02HV33Z Insertion of Infusion Device into Superior Vena Cava, Percutaneous Approach (ICD-10-PCS; principal; 2022-06-30)
DX: T81.40XA Infection following a procedure, unspecified, initial encounter (principal); A41.02 Sepsis due to Methicillin resistant Staphylococcus aureus; R65.20 Severe sepsis without septic shock; L03.115 Cellulitis of right lower limb; R29.0 Tetany; Z68.41 Body mass index [BMI] 40.0-44.9, adult; N39.0 Urinary tract infection, site not specified; T81.44XA Sepsis following a procedure, initial encounter; G47.33 Obstructive sleep apnea (adult) (pediatric); E83.51 Hypocalcemia; G43.909 Migraine, unspecified, not intractable, without status migrainosus; R19.7 Diarrhea, unspecified; E87.6 Hypokalemia; R11.2 Nausea with vomiting, unspecified; E66.01 Morbid (severe) obesity due to excess calories; R00.2 Palpitations; R74.02 Elevation of levels of lactic acid dehydrogenase [LDH]; R06.82 Tachypnea, not elsewhere classified; Z20.822 Contact with and (suspected) exposure to COVID-19
CPT/HCPCS: 36415; 36600; 71045; 71275; 73701; 73721; 74176; 80048; 80053; 80202; 81001; 81025; 82310; 82330; 82803; 83605; 83690; 83735; 84100; 84132; 84145; 84484; 85025; 86140; 87040; 87045; 87046; 87070; 87086; 87150; 87181; 87205; 87427; 87493; 87633; 93005; 93306; 96365; 96366; 96367; 96368; 96375; 96376; 97116; 97162; 99285; A9270; G0378; J0131; J1170; J1650; J2765; J3370; J7120; Q9967; 81003

== ENCOUNTER 2022-08-13 11:20 | Outpatient (CLI) | payer OTHER ==
[2022-08-13 17:39] LABS: BASOPHILS # (AUTO) 0.1 10^3/uL (0.0-0.1); EOSINOPHILS # (AUTO) 0.3 10^3/uL (0.0-0.7); EOSINOPHILS % (AUTO) 3.3 %; HCT - HEMATOCRIT 43.7 % (37.0-47.0); HGB - HEMOGLOBIN 13.9 g/dL (12.0-16.0); LYMPHOCYTES # (AUTO) 2.6 10^3/uL (1.5-3.5); LYMPHOCYTES % (AUTO) 31.8 %; MEAN CORPUSCULAR HEMOGLOBIN 28.7 pg (27.0-31.0); MEAN CORPUSCULAR HGB CONC 31.8 g/dL (32.0-36.0); MEAN CORPUSCULAR VOLUME 90.3 fL (81.0-99.0); MEAN PLATELET VOLUME 10.4 fL (7.9-10.8); MONOCYTES # (AUTO) 0.5 10^3/uL (0.0-1.0); MONOCYTES % (AUTO) 5.7 %; NEUTROPHILS # (AUTO) 4.7 10^3/uL (1.5-6.6); PLT - PLATELET COUNT 437 10^3/uL (130-450); RED BLOOD COUNT 4.84 10^6/uL (4.20-5.40); WHITE BLOOD COUNT 8.1 x10^3/uL (4.8-10.8)
[2022-08-13 17:56] LABS: ALBUMIN 4.1 g/dL (3.2-5.5); ALBUMIN/GLOBULIN RATIO 1.1 (1.0-2.2); BILIRUBIN,TOTAL 1.4 mg/dL (0.2-1.0); CALCIUM 9.3 mg/dL (8.5-10.3); CREATININE 0.8 mg/dL (0.4-1.0); POTASSIUM 4.4 mmol/L (3.5-5.0); TOTAL PROTEIN 7.7 g/dL (6.7-8.2)
[2022-08-17 12:14] LABS: PATHOLOGIST SLIDE COMMENTS SEE SEPARATE REPORT
== END 2022-08-13 11:21 | disposition home or self-care (01) ==
LOC: LAB.N 11:20
PROVIDERS: ATTEND Registered Nurse
DX: T81.44XA Sepsis following a procedure, initial encounter (principal)
CPT/HCPCS: 36415; 80053; 85025

== ENCOUNTER 2022-09-27 14:21 | Outpatient (CLI) | payer OTHER ==
[2022-09-27 16:46] VITALS: BP 126/78
--- NOTE | 2022-09-27 16:46 | SLEEP CARE CONSULTATION ---
Information from patient questionnaire entered by Esau Dela Cruz. I have reviewed and concur with the information entered by Esau Dela Cruz. This document represents the service I personally performed and the decisions made by me, Dami Zendejas MD, [facility]. History of Present Illness Service Date and Time: 09/27/2022 1421 Reason for Visit: New patient Chief Complaint: reports: Observed pauses in breathing Usual bedtime: 1-2AM Time it takes to fall asleep: 30MIN Snores at night: Yes Observed to quit breathing while asleep: No Sleeps alone due to snoring: No Number of times waking at night: 0-1 Toss, Turn, or Twitch while sleeping: Yes Recalls having dreams: Yes Usually gets out of bed at: 9 Feels refreshed in the morning: No Morning headache: No Sleepy or fatigued during the day: Yes Ever fallen asleep while driving: No Takes day naps: Yes Dreams during day naps: Yes Prior sleep studies: No Additional HPI information: I have the pleasure of seeing Ms. Stapleton along with her today regarding the possibility of her having obstructive sleep apnea. As you know, she is a 32-year-old lady who complains of loud snores and witnessed apneas. She said she has been told twice while hospitalized that she quit breathing wh ile asleep. The first time was after she delivered a baby. The second time was when she had sepsis. The patient tells me that she normally goes to bed around 1 2 am, and it takes her approximately 30 minutes to fall asleep. Her sleeps in the same bed. She does not sleep on her back at home. She can recall waking up on the average of 0 - 1 time during the night. She has never awakened because of her own snoring, choking, or having to gasp for air. There is a lot of tossing and turning in her sleep. No somniloquy (sleep talking) or somnambulism (sleep walking). Generally, she can recall having dreams. In the morning she usually gets up out of the bed around 9 a.m. not feeling refreshed nor rested. She usually does not have a morning headache. During the day she complains of feeling sleepy and fatigued. Her score on [place] Sleepiness Scale is 7 out of 24. She has never fallen asleep while driving nor has had any accident due to sleepiness. She usually takes naps during the day. Upon falling asleep during the day she reports having vivid dreams. She has never had sleep paralysis, experienced cataplexy or symptoms of restless leg s yndrome. She denies having impaired concentration during the day. - Parasomnia Symptoms Ever been unable to move upon waking from sleep: No Walks in sleep: No Talks in sleep: No Ever acted out dreams in sleep: No Ever felt weak in the knees when startled or emotional: No Bothered by creepy, crawly, restless sensations in legs: No Problems with memory or concentration: No Subjective Initial [place] Sleepiness Scale score: 7 (09/27/22) Past Medical History Past Medical History: reports: Claustrophobia, Depression, Other (MIGRAINES, PCOS) Social History The patient's occupation is a [employer]. Patient is and lives in [place]. Have you smoked in the past 12 months: No Alcohol use: No Caffeine use: Yes Caffeine amount and frequency: 1-2 A DAY Family History Family history of sleep disordered breathing: Yes Family Hx Sleep Apnea: Father: Snoring, Sleep apnea - Untreated, Sibling: Snoring Allergies and Home Medications Known drug allergies: No Drug allergies reviewed: Yes Home medication list reviewed: Yes Allergy and home medication list: Allergies sumatriptan Adverse Reaction (Verified 09/24/22 13:29) Unknown Review of Systems Cardiovascular: reports: palpitations Respiratory: denies: shortness of breath, wheeze, sputum production, chronic cough, other Gastrointestinal: denies: heartburn, difficulty swallowing, nausea, vomitting, diarrhea, abdominal pain, other Urinary: denies: incontinence, frequency, urgency, impotence, other Neurological: reports: headaches Psychiatric: reports: depression, claustrophobia Ear/Nose/Throat: reports: wisdom teeth removed Endocrine: reports: sluggishness, too hot or cold Musculoskeletal: denies: joint pain, neck pain, back pain, joint swelling, muscle pain or cramping, mobility problems, other Immunologic: denies: sneezing, rash, itching, allergies to food or environment, other Physical Exam Vital signs obtained and entered by: ESAU Stinson MA Blood Pressure: 126/78 (LEFT ARM) Cuff size: regular Heart Rate: 76 O2 Saturation: 97 Height: 5 ft 3 in Weight: 224 lb Body Mass Index: 39.6 BMI Classification: Obese Neck circumference: 16.25 Mood/affect: Normal HEENT: No craniofacial malformation Nostrils: patent to airflow Turbinates: normal Septum: midline Mouth and throat: narrow oropharynx Soft palate: long Hard palate: normal Uvula: normal Uvula visualization: 50% Mallampati Class II Tongue: normal in size Tonsils: small Chin and jaw: normal size and position Neck: normal w/o lymphadenopathy or thyromegaly Heart: regular rate and rhythm Lungs: clear bilaterally Extremities: no edema or clubbing Neurologic: intact Impression and Plan IMPRESSION: 1. Obstructive Sleep Apnea-Hypopnea Syndrome, as evident by history of loud and irregular snoring, observed cessation of breath while asleep, and excessive daytime sleepiness. The sleep-related breathing disorder may not be obvious at home because she does not usually sleep on her back. Narrow oropharynx and obesity are common predisposing factors for obstructive sleep apnea-hypopnea syndrome. I recommend proceeding to polysomnography to confirm the diagnosis and to assess severity. If she has significant sleep disordered breathing, a manual CPAP titration study will also be performed to find the optimal treatment pressure. I informed the patient of what the sleep studies involve and after some discussion, she agreed to proceed. Plan: 1. Schedule polysomnography and return in 1 to 2 weeks after the study to discuss results and initiate therapy. 2. Avoid long-distance driving or when feeling sleepy. 3. Avoid alcohol, sedatives, and muscle relaxants around bedtime. 4. Attempt to lose weight. Counseling Topics: Weight control Follow up with Sleep Care in: 1-2 months Visit Type: In Office Time Spent with Patient (minutes): 15 Provider Statement: I spent 100% of the Face to Face Visit with the patient with greater than 50% spent counseling the patient and coordination of care.
== END 2022-09-27 14:22 | disposition home or self-care (01) ==
LOC: SC 14:21
PROVIDERS: ATTEND Internal Medicine Pulmonary Disease
DX: G47.10 Hypersomnia, unspecified (principal); R06.83 Snoring; G47.8 Other sleep disorders; R06.81 Apnea, not elsewhere classified; E66.9 Obesity, unspecified; Z68.39 Body mass index [BMI] 39.0-39.9, adult
CPT/HCPCS: 99202; 99212

== ENCOUNTER 2022-09-28 14:28 | Outpatient (CLI) | payer OTHER | END 2022-09-28 14:29 | disposition home or self-care (01) | LOC: MAC.MOP 14:28 | PROVIDERS: ATTEND Registered Nurse | DX: R00.2 Palpitations (principal) | CPT/HCPCS: 93242 ==

== ENCOUNTER 2022-10-18 10:30 | Outpatient (CLI) | payer OTHER | END 2022-10-18 10:31 | disposition home or self-care (01) | LOC: MAC.INF 10:30 | PROVIDERS: ATTEND Registered Nurse | DX: R00.2 Palpitations (principal); I49.8 Other specified cardiac arrhythmias; I49.1 Atrial premature depolarization; I49.3 Ventricular premature depolarization | CPT/HCPCS: 93244 ==

== ENCOUNTER 2022-11-12 13:39 | Outpatient (CLI) | payer OTHER ==
[2022-11-12 17:53] LABS: BASOPHILS # (AUTO) 0.1 10^3/uL (0.0-0.1); BASOPHILS % (AUTO) 0.8 %; EOSINOPHILS # (AUTO) 0.4 10^3/uL (0.0-0.7); HCT - HEMATOCRIT 45.1 % (37.0-47.0); HGB - HEMOGLOBIN 14.5 g/dL (12.0-16.0); LYMPHOCYTES # (AUTO) 2.8 10^3/uL (1.5-3.5); LYMPHOCYTES % (AUTO) 23.2 %; MEAN CORPUSCULAR HEMOGLOBIN 28.2 pg (27.0-31.0); MEAN CORPUSCULAR HGB CONC 32.2 g/dL (32.0-36.0); MEAN CORPUSCULAR VOLUME 87.6 fL (81.0-99.0); MONOCYTES # (AUTO) 0.6 10^3/uL (0.0-1.0); MONOCYTES % (AUTO) 4.5 %; NEUTROPHILS # (AUTO) 8.3 10^3/uL (1.5-6.6); NEUTROPHILS % (AUTO) 67.9 %; PLT - PLATELET COUNT 421 10^3/uL (130-450); RED BLOOD COUNT 5.15 10^6/uL (4.20-5.40); RED CELL DISTRIBUTION WIDTH 13.5 % (12.0-15.0); WHITE BLOOD COUNT 12.3 x10^3/uL (4.8-10.8)
[2022-11-12 18:16] LABS: ALBUMIN 4.2 g/dL (3.2-5.5); ALBUMIN/GLOBULIN RATIO 1.1 (1.0-2.2); ALKALINE PHOSPHATASE 61 IU/L (42-121); ALT ALANINE AMINOTRANSFERASE 34 IU/L (10-60); AST ASPARTATE AMINOTRANSFERASE 18 IU/L (10-42); BILIRUBIN,TOTAL 0.9 mg/dL (0.2-1.0); BUN - BLOOD UREA NITROGEN 10 mg/dL (6-20); CALCIUM 9.3 mg/dL (8.5-10.3); CARBON DIOXIDE - CO2 28 mmol/L (21-32); CHLORIDE 103 mmol/L (101-111); CHOL/HDL RATIO 6.1 (<4.4); CHOLESTEROL 208 mg/dL; CREATININE 0.7 mg/dL (0.4-1.0); GFR - MDRD 98 (>89); GLUCOSE 100 mg/dL (70-100); HDL CHOLESTEROL 34 mg/dL; LDL CHOLESTEROL,CALCULATED 138 mg/dL; LDL/HDL RATIO 4.1 (<4.4); POTASSIUM 4.1 mmol/L (3.5-5.0); SODIUM 140 mmol/L (135-145); TRIGLYCERIDES 181 mg/dL; VLDL CHOLESTEROL 36 mg/dL
[2022-11-12 18:19] LABS: T4 (THYROXINE) 7.45 ug/dL (6.09-12.23)
[2022-11-12 18:22] LABS: THYROID STIMULATING HORMONE 3.07 uIU/mL (0.34-5.60)
== END 2022-11-12 13:40 | disposition home or self-care (01) ==
LOC: LAB.N 13:39
PROVIDERS: ATTEND Registered Nurse
DX: R53.82 Chronic fatigue, unspecified (principal); L65.9 Nonscarring hair loss, unspecified; Z79.899 Other long term (current) drug therapy; Z13.220 Encounter for screening for lipoid disorders
CPT/HCPCS: 36415; 80053; 80061; 82306; 82607; 83721; 84436; 84443; 84480; 85025

== ENCOUNTER 2022-11-12 14:29 | Outpatient (CLI) | payer OTHER | END 2022-11-12 14:30 | disposition home or self-care (01) | LOC: SC 14:29 | PROVIDERS: ATTEND Internal Medicine Pulmonary Disease | DX: G47.33 Obstructive sleep apnea (adult) (pediatric) (principal); R09.02 Hypoxemia; E66.9 Obesity, unspecified; Z68.39 Body mass index [BMI] 39.0-39.9, adult | CPT/HCPCS: 95806 ==

== ENCOUNTER 2022-11-23 11:29 | Outpatient (CLI) | payer OTHER ==
--- NOTE | 2022-11-23 11:53 | Sleep Patient Instructions ---
Sleep Center Visit Summary - Patient Visit Information Reason for Visit: Sleep study follow up - Patient Instructions Additional Instructions: You are to start Positional therapy to control your sleep apnea. You may obtain positional belts or other commercial devices online. You may also use pillows to position yourself on your side or a T shirt with balls sewn into the back to help keep you on your side to sleep. We would like to follow up with you in a month to check effectiveness of therapy. Please follow up in the sleep care office in 5-6 months. - Clinic Information Contact: [facility] [address] [place] [address] [email or web address] T: [phone]
--- NOTE | 2022-11-23 12:03 | SLEEP CARE CONSULTATION ---
Information from patient questionnaire entered by Tracy Dela Cruz. I have reviewed and concur with the information entered by Tracy Dela Cruz. This document represents the service I personally performed and the decisions made by , Saida Rosario ARNP. History of Present Illness Service Date and Time: 11/23/2022 1129 Accompanied by: Spouse (Dashawn) Initial [place] Sleepiness Scale score: 7 (09/27/22) Current [place] Sleepiness Scale score: 5 (11/23/22) Additional HPI information: LIS JIMENEZ returns with spouse for follow up and results of the recently performed home sleep study. I explained the pathophysiology behind obstructive sleep apnea. We then spent quite a bit of time discussing different treatment options. For mild obstructive sleep apnea, surgery and oral appliance are alternatives to nasal CPAP therapy but in moderate or severe cases, nasal CPAP is the most effective and reliable treatment. I reviewed the impact of weight changes on sleep apnea and strongly recommended losing weight. Patient does not drink alcohol. Patient was cautioned about risks of drowsy driving until sleepiness symptoms resolve. Patient denies drowsy driving. Sleep Study - Results Type of Sleep Study: Home sleep study (COMPLETED 11/13/22) Prior sleep studies: No Polysomnography/Home Sleep Study results: Physician Impression: The quality of the study is fair due to partial loss of airflow signal. The length of the study is adequate (> 240 minutes). Please also see the tabulated and graphic data. 1. Obstructive Sleep Apnea-Hypopnea (ICD-10 G47.33), mild, with an AHI of 5.9/hr and janessa SaO2 of 89%. During the study, the patient had 19 apneas (18 obstructive, 1 central, 0 mixed) and 16 hypopneas. The longest episode lasted 54.5 seconds. The patient did not sleep supine during this study (supine AHI was 0.0 and non-supine, 5.94). 2. Hypoxemia (ICD-10 R09.02), minimal, with the lowest oxygen saturation of 89 % and 0.3 minutes with SaO2 under 90%. Baseline oxygen saturation was normal (Average oxygen saturation was 94%). Allergies and Home Medications Known drug allergies: Yes (sumatriptan) Drug allergies reviewed: Yes Home medication list reviewed: Yes (no changes) Allergy and home medication list: Allergies sumatriptan Adverse Reaction (Verified 11/22/22 13:59) Unknown Review of Systems Review of systems same as previous: Yes (no changes) Physical Exam Vital signs obtained and entered by: TRACY Stinson MA Blood Pressure: 128/78 (left arm) Cuff size: long Heart Rate: 80 O2 Saturation: 96 Height: 5 ft 3 in Weight: 224 lb 9.6 oz Body Mass Index: 39.7 BMI Classification: Obese Impression and Plan 1. Obstructive Sleep Apnea-Hypopnea Syndrome, mild, with lowest oxygen saturation of 89%. Obviously this is the cause of the patients symptoms of unrefreshed sleep, and excessive daytime sleepiness. Positive pressure therapy could benefit depression, insulin resistance (PCOS) and migraines. Lis is to have surgery in 2 weeks and does not want to start any therapy until after the surgery. I also explained how mild her apnea is and that she could just try to weight loss to reduce the apneas seen in study when non-supine. She states she only sleeps on her sides normally. I advised positional therapy, sleeping only on her sides, while trying to reduce her weight. She may come back in 5 months to check in and try other type of therapy if her weight loss plan is not going well or her symptoms worsen. She is advised to try to lose weight after recovery from surgery as this will reduce snoring and apnea severity. An oral appliance can also be used for snoring but often is not covered by insurance. Follow up is scheduled for to check effectiveness and to see if additional treatment indicated. 2. Hypoxemia, minimal, with the lowest oxygen saturation of 89 % and 0.3 minutes with SaO2 under 90%. Her baseline oxygen saturation was normal with an average oxygen saturation of 94%. * Nasal auto CPAP therapy, pressure at 4-15 cm H2O. * Attempt to lose weight. * Avoid alcohol consumption near bedtime. * Avoid supine sleep until using CPAP. * The patient is again cautioned about driving until sleepiness completely resolves. * Return one month after CPAP obtained. I will assess response to therapy and compliance at that time. Counseling Topics: Sleeping position, Weight loss health impact Visit Type: In Office Time Spent with Patient (minutes): 20 Provider Statement: I spent 100% of the Face to Face Visit with the patient with greater than 50% spent counseling the patient and coordination of care.
[2022-11-23 12:06] VITALS: BP 128/78
== END 2022-11-23 11:30 | disposition home or self-care (01) ==
LOC: SC 11:29
PROVIDERS: ATTEND Nurse Practitioner Family
DX: G47.33 Obstructive sleep apnea (adult) (pediatric) (principal); R09.02 Hypoxemia; E66.9 Obesity, unspecified; Z68.39 Body mass index [BMI] 39.0-39.9, adult
CPT/HCPCS: 99212